=== PATIENT | female | born 1935 | race Caucasian/White ===

== ENCOUNTER 2017-08-08 10:44 | Emergency (ER) | payer MEDICARE, OTHER ==
[~2017-08-08] VITALS: Ht 162.6 cm; Wt 81.6 kg
[~2017-08-08 10:44] MED LIST: ALLOPURINOL100 MG PO; ASPIRIN EC81 MG PO; ATORVASTATIN CA10 MG PO; BIOTIN PO; BYSTOLIC PO; CARVEDILOL12.5 MG PO; CLONIDINE HCL0.3 MG TD; DIOVAN160 MG PO; GLIMEPIRIDE2 MG PO; ISOSORBIDE DINI30 MG PO; KLOR-CON 88 MEQ PO; LASIX20 MG PO; NIFEDICAL XL PO; PANTOPRAZOLE PO; PANTOPRAZOLE SO40 MG PO; TRIAMTERENE-HCTZ1 EA PO; VITAMIN D3 PO
[2017-08-08] MEDS ORDERED: JANUVIA100 MG PO (11:18)
[2017-08-08] MEDS ORDERED: GLIMEPIRIDE2 MG PO (11:18)
[2017-08-08] MEDS ORDERED: COREG12.5 MG (11:18)
[2017-08-08] MEDS ORDERED: LASIX40 MG PO (11:18)
[2017-08-08] MEDS ORDERED: SPIRONOLACTONE25 MG PO (11:18)
[2017-08-08] MEDS ORDERED: ROBAXIN-750750 MG PO (12:30)
[2017-08-08 12:59] VITALS: BP 150/67
== END 2017-08-08 12:40 | disposition home or self-care (01) ==
LOC: FSED 10:44
DX: R07.89 Other chest pain (principal); M54.2 Cervicalgia; S16.1XXA Strain of muscle, fascia and tendon at neck level, initial encounter; M25.512 Pain in left shoulder; I10 Essential (primary) hypertension; E11.9 Type 2 diabetes mellitus without complications
CPT/HCPCS: 71046; 80048; 82553; 84484; 85025; 93005; 99283

== ENCOUNTER 2017-10-18 12:11 | Emergency (ER) | payer MEDICARE, OTHER ==
[~2017-10-18] VITALS: Ht 162.6 cm; Wt 81.6 kg
[~2017-10-18 12:11] MED LIST changes: +COREG12.5 MG; +JANUVIA100 MG PO; +LASIX40 MG PO; +ROBAXIN-750750 MG PO; +SPIRONOLACTONE25 MG PO
--- OUTSIDE RECORDS SUMMARY | 2017-10-18 12:15 | XMS REPORT | Continuity of Care Document ---
Author Author [facility] Organization [facility] Address [address] [place] [address] Phone Unavailable Care Team Providers Care Truck Terminal Manager Name Role Phone NONSTAFF PCP Unavailable Insurance Providers Guarantor Kim Young Address [address] [place] [address] Email [email or web address] Payer Medicare A & B Policy Number [id number] Subscriber's Name Fatou Youngfer Gonzalez Relationship 18 Self / Same As Patient Group Number [id number] Group Name RETIRED Effective Date 00 Payer Miscellaneous Indemnity Policy Number [id number] Subscriber's Name Kim Young Lisa Relationship 18 Self / Same As Patient Group Number [id number] Group Name RETIRED Effective Date 00 Advance Directives Directive Response Recorded Date/Time Does the patient have an advance directive? Yes 11/29/09 6:43am If yes, is advance directive on file with [facility]? No 11/29/09 6:43am If not on file with [facility] will patient provide a copy? Yes 01/02/16 10:00pm Do you have a Directive to Physician? No 08/08/17 11:49am Do you have a Medical Power of Surgical Resident? No 08/08/17 11:49am Do you have an out of hospital Do Not Resuscitate Order? No 08/08/17 11:50am Do you have any special needs we should be aware of? No 08/08/17 11:50am Do you have a support person here with you today? Yes 08/08/17 11:50am Did patient receive Notice of Privacy Practices? Yes 08/08/17 11:50am Did patient receive patient rights and responsibilities? Yes 08/08/17 11:50am Problems No problem information available. Medications Current Home Medications Medication Dose Units Route Directions Days Qty Instructions Start Date Allopurinol 100 Mg Tablet 100 Mg Oral Twice A Day 30 Tab Aspirin (Aspirin Ec) 81 Mg Tablet.dr 81 Mg Oral Daily 30 Tab Atorvastatin Calcium 10 Mg Tablet 10 Mg Oral Today At 9:00PM 30 Tab Carvedilol (Coreg) 12.5 Mg Tab 25 Furosemide (Lasix) 40 Mg Tablet 40 Mg Oral Daily 30 Tab Glimepiride 2 Mg Tablet 4 Mg Oral Isosorbide Dinitrate 30 Mg Tablet 1 Tab Oral Romi Methocarbamol (Robaxin-750) 750 Mg Tablet 1-2 Tab Oral Three Times A Day as needed for Pain 30 Tab 08/08/17 Pantoprazole Sodium (Protonix) 40 Mg Tablet.dr 40 Mg Oral Daily Sitagliptin Phosphate (Januvia) 100 Mg Tablet 50 Mg Oral Daily 30 Tab Spironolactone 25 Mg Tablet 25 Mg Oral Twice A Day 60 Tab Valsartan (Diovan) 160 Mg Tab 160 Mg Oral Twice A Day 60 Tab Past Home Medications Medication Directions Ordered Status Biotin , 5000 Oral Daily Discontinued Bystolic , 20 Mg Oral Daily Discontinued Carvedilol 12.5 Mg Tablet, 25 Mg Oral Twice A Day Discontinued Clonidine Hcl 0.3 Mg Tablet, 0.3 Mg Transderm Weekly Discontinued Furosemide (Lasix) 20 Mg Tablet, 20 Mg Oral Daily Discontinued Glimepiride 2 Mg Tablet, 2 Mg Oral Use As Directed Discontinued Nifedical Xl , 60 Mg Oral Daily Discontinued Pantoprazole , 40 Mg Oral Daily Discontinued Potassium Chloride (Klor-Con 8) 8 Meq Tablet.er, 1 Tab Oral Daily Discontinued Triamterene/Hctz (Triamterene-Hctz 37.5-25 Mg Tb) 1 Ea Tab, 1 Each Oral Daily Discontinued Vitamin D3 , Oral Daily Discontinued Social History Smoking Status Start Date Stop Date Never Smoker Hospital Discharge Instructions No hospital discharge instruction information available. Plan of Care Discharge Date 08/08/17 12:40pm Disposition HOME, SELF-CARE Condition at Discharge Stable Instructions/Education Provided Strains Chest Pain - Chest Wall Cervical Strain Prescriptions See Medication Section Additional Instructions/Education You may also use your home Tramadol you take as needed for pain for this pain as well. Functional Status No functional status information available. Allergies, Adverse Reactions, Alerts Allergen Type Severity Reaction Status Last Updated Penicillin Allergy Mild Active 01/02/16 Iodine Allergy Mild Active 01/02/16 Hydrocodone Allergy Mild Active 01/02/16 Acetaminophen Allergy Mild Active 01/02/16 Levofloxacin Allergy Mild Active 01/02/16 Immunizations No immunization information available. Vital Signs Acute Vital Signs Vital Response Date/Time Pulse Pulse Rate (adult) 60 bpm (60 - 90) 08/08/2017 12:59pm Respiratory Rate 16 bpm (12 - 24) 08/08/2017 12:59pm Blood Pressure 150/67 mm Hg 08/08/2017 12:59pm Height 5 ft 4 in 08/08/2017 10:45am Weight 180 lb 08/08/2017 10:45am Body Mass Index 30.9 kg/m^2 08/08/2017 10:45am Results No relevant diagnostic test, laboratory data and/or discharge summary information available. Procedures No procedure information available. Encounters Encounter Location Arrival/Admit Date Discharge/Depart Date Attending Provider Departed Emergency Room [facility] 08/08/17 10:44am 08/08 12:40pm TONY FABIAN MD
--- OUTSIDE RECORDS SUMMARY | 2017-10-18 12:15 | XMS REPORT | Clinical Summary ---
Author Author [facility] Organization [facility] Address Unknown Phone Unavailable Care Team Providers Care Tie Knitter Helper Name Role Phone Tunde Perkins MD PCP Allergies Active Allergy Reactions Severity Noted Date Comments Hydrocodone-Acetaminophen 08/17/2015 Other reaction(s): Vicodin Iodine Other (See Comments) 08/17/2015 Levofloxacin Other (See Comments) 08/17/2015 Levaquin Penicillins 08/17/2015 Other reaction(s): Penicillins Prednisone Other (See Comments) 09/18/2016 High blood pressure Current Medications Prescription Sig. Disp. Refills Start End Date Status Date carvedilol (COREG) 25 MG 2 06/23/20 Active tablet 15 allopurinol (ZYLOPRIM) 08/30/19 Active 100 MG tablet 16 valsartan (DIOVAN) 160 MG 08/30/19 Active tablet 16 isosorbide mononitrate TK 1 T PO D 3 09/02/19 Active (IMDUR) 30 MG 24 hr 16 tablet pantoprazole (PROTONIX) 08/24/19 Active 40 MG EC tablet 16 KLOR-CON 8 8 mEq CR 08/30/19 Active tablet 16 aspirin (ECOTRIN) 81 MG Take 81 mg by mouth Active enteric coated tablet daily. lancets 30 gauge misc For ADVOCATE GLUCOMETER 180 each 10 05/03/20 Active device BID testing 16 pen needle, diabetic (BD Use once daily 100 each 10 09/19/19 Active ULTRA-FINE FABY PEN 17 NEEDLES) 32 gauge x 5/32" needle LANTUS SOLOSTAR 100 Inject subcutaneously 10 15 mL 1 11/30/19 Active unit/mL injection (pen) units nightly 17 atorvastatin (LIPITOR) 10 Take 1 tablet by mouth 90 tablet 1 12/05/19 Active MG tablet every day 17 glimepiride (AMARYL) 4 MG Take 1 tablet by mouth 180 tablet 1 Active tablet two times daily 17 furosemide (LASIX) 40 MG 3 07/27/19 02/08/20 Discontin tablet 16 17 ued glimepiride (AMARYL) 4 MG Take 1 tablet (4 mg 180 tablet 3 01/10/20 12/03/19 Discontin tablet total) by mouth 2 (two) 16 17 ued times a day. blood sugar diagnostic ADVOCATE test strips, for 180 strip 10 05/02/20 strips (glucose blood) BID testing 16 17 strip test strips atorvastatin (LIPITOR) 10 Take 1 tablet by mouth 90 tablet 1 06/12/20 12/03/19 Discontin MG tablet every day 16 17 ued insulin GLARGINE (LANTUS Inject 10 Units under the 5 pen 1 09/19/19 11/30/19 Discontin SOLOSTAR) 100 unit/mL skin nightly. 17 17 ued injection (pen) TRULICITY 0.75 mg/0.5 mL Inject subcutaneously 6 mL 1 11/30/1902/07 Discontin pen injector 0.75 mg once a week. 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, unspecified senior care insulin use status (Primary Dx) 12/02/2016 Refill Endocrinology Fatuma Cosby MD 12/01/2016 Clinical Internal Medicine Uncontrolled type 2 Support diabetes mellitus with diabetic nephropathy, 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 insulin use status (Primary Dx) 12/01/2016 Telephone Endocrinology Eva Henning LVN 11/29/2016 Refill Endocrinology Fatuma Cosby MD 11/13/2016 Clinical Internal Medicine Uncontrolled type 2 Support diabetes mellitus with hyperosmolar coma, without long-term current use of insulin (Primary Dx) 11/10/2016 Telephone Endocrinology Eva Henning LVN after 10/17/2016 Family History Medical History Relation Name Comments Diabetes Maternal Grandmother Heart disease Maternal Grandmother GI problems Mother Relation Name Status Comments Maternal Grandmother Mother Social History Tobacco Use Types Packs/Day Years Used Date Never Smoker Smokeless Tobacco: Never Used Tobacco Cessation: Counseling Given: No Sex Assigned at Date Recorded Not on file Last Filed Vital Signs Vital Sign Reading Time Taken Blood Pressure 150/76 02/07/2017 9:57 AM CDT Pulse 73 02/07/2017 9:57 AM CDT Temperature 36.5 C (97.7 F) 02/07/2017 9:57 AM CDT Respiratory Rate - - Oxygen Saturation 96% 02/07/2017 9:57 AM CDT Inhaled Oxygen - - Concentration Weight 79.8 kg (176 lb) 02/07/2017 9:57 AM CDT Height 165.1 cm (5' 5") 02/07/2017 9:57 AM CDT Body Mass Index 29.29 02/07/2017 9:57 AM CDT Plan of Treatment Health Maintenance Due Date Last Done Comments FOOT EXAM 1945 OPHTHALMOLOGY EXAM 1945 ZOSTER VACCINE 1995 PNEUMOCOCCAL 2000 POLYSACCHARIDE VACCINE AGE 65 AND OVER PNEUMOCOCCAL-13 2000 URINE MICROALBUMIN 03/16/2017 03/16/2016 INFLUENZA VACCINE 01/30/2018 Results * POC glycosylated hemoglobin (Hb A1C) (12/01/2016 2:56 PM) Only the most recent of 2 results within the time period is included. Component Value Ref Range POC Hemoglobin A1C 6.9 % Specimen Performing Laboratory Blood after 10/17/2016 Insurance Payer Benefit Subscriber ID Type Phone Address Plan / Group MEDICARE MEDICARE xxxxxxxxxx Medicare [place], [place] PART A AND B COMMERCIAL MISC MISC xxxxxxxxx Commercial COMMERCIAL
[2017-10-18 13:45] VITALS: BP 136/78
== END 2017-10-18 13:35 | disposition home or self-care (01) ==
LOC: FSED 12:11
DX: H92.02 Otalgia, left ear (principal); M26.622 Arthralgia of left temporomandibular joint; I10 Essential (primary) hypertension; E11.9 Type 2 diabetes mellitus without complications
CPT/HCPCS: 99282

== ENCOUNTER 2020-05-09 16:10 | Observation (INO) | payer MEDICARE, OTHER ==
[~2020-05-09] VITALS: Ht 162.6 cm; Wt 86.2 kg
--- OUTSIDE RECORDS SUMMARY | 2020-05-09 17:00 | XMS REPORT | Clinical Summary ---
Author Author [facility] Organization [facility] Address Unknown Phone Unavailable Care Team Providers Care Executive Kitchen Manager Name Role Phone Belén Perkins MD PCP Allergies Comments Active Allergy Reactions Severity Noted Date Other reaction(s): Vicodin Hydrocodone-Acetaminophen 08/17/2015 Iodine Other (See 08/17/2015 Comments) Levaquin Levofloxacin Other (See 08/17/2015 Comments) Other reaction(s): Penicillins Penicillins 08/17/2015 High blood pressure Prednisone Other (See 09/18/2016 Comments) Medications End Date Status Medication Sig Dispensed Refills Start Date Active carvedilol (COREG) 25 MG 2 tablet 5 Active allopurinol (ZYLOPRIM) 0 100 MG tablet 6 Active valsartan (DIOVAN) 160 MG 0 tablet 6 Active isosorbide mononitrate TK 1 T PO D 3 01 (IMDUR) 30 MG 24 hr 6 tablet Active pantoprazole (PROTONIX) 0 40 MG EC tablet 6 Active KLOR-CON 8 8 mEq CR 0 tablet 6 Active aspirin (ECOTRIN) 81 MG Take 81 mg by 0 enteric coated tablet mouth daily. Active lancets 30 gauge misc For ADVOCATE 180 each 10 GLUCOMETER 6 device BID testing Active pen needle, diabetic (BD Use once 100 each 10 0 ULTRA-FINE FABY PEN daily 7 NEEDLES) 32 gauge x 5/32" needle Active LANTUS SOLOSTAR 100 Inject 15 mL 1 unit/mL injection (pen) subcutaneousl 7 y 10 units nightly Active atorvastatin (LIPITOR) 10 Take 1 tablet 90 tablet 1 MG tablet by mouth 7 every day Active glimepiride (AMARYL) 4 MG Take 1 tablet 180 tablet 1 tablet by mouth two 7 times daily Active Problems Problem Noted Date Uncontrolled type 2 diabetes mellitus 08/17/2015 Surgical History Surgery Date Site/Laterality Comments EYE SURGERY 12/30/2013 - Cataract Surgery 01/29/2014 KNEE SURGERY 03/02/2011 - 03/31/2011 ORTHOPEDIC SURGERY 08/2010 and 09/2009 BACK SURGERY Dates: 11/2004, 09/1990, 09/1986 ORTHOPEDIC SURGERY 08/02/2000 - 08/29/2000 HERNIA REPAIR 08/30/1996 - 09/29/1996 HYSTERECTOMY 11/30/1974 - 12/29/1974 BREAST SURGERY 09/30/1974 - 10/29/1974 COLONOSCOPY Medical History Medical History Date Comments Allergic Arthritis Diabetes mellitus (HCC) Fibromyalgia Heart murmur Liver disease Kidney disease Pulmonary embolism (HCC) Kumar's palsy Hypertension Family History Medical History Relation Name Comments Diabetes Maternal Grandmother Heart disease Maternal Grandmother GI problems Mother Relation Name Status Comments Maternal Grandmother Mother Social History Date Tobacco Use Types Packs/Day Years Used Never Smoker Smokeless Tobacco: Never Used Tobacco Cessation: Counseling Given: No Sex Assigned at Date Recorded Not on file Last Filed Vital Signs Not on file Plan of Treatment Health Maintenance Due Date Last Done Comments SHINGLES VACCINES (#1) 1985 65+ PNEUMOCOCCAL VACCINE 2000 (1 of 1 - PPSV23) INFLUENZA VACCINE 01/31/2020 Results Not on fileafter 05/09/2019 Insurance Type Payer Benefit Subscriber ID Effective Phone Address Plan / Dates Group Medicare MEDICARE MEDICARE [id number] 2000- [place], PART A AND Present [place] B Commercial COMMERCIAL [facility] [id number] 2000- COMMERCIAL Present Advance Directives For more information, please contact: [phone] 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
--- OUTSIDE RECORDS SUMMARY | 2020-05-09 17:01 | XMS REPORT | Continuity of Care Document ---
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 Design Engineer Name Role Phone [facility] Unavailable Un available Problems Problem Status Onset Date Classification Date Reported Comments Source F/U Active 0 11/06/2019 [facility] FOLLOW UP Active 05/14/2019 [facility] BDNV GERD Active 03/25/2019 [facility] GI F/U APPT Active 03/19/2019 [facility] ESOPHAGEAL DYSMOTILITY, BRONCHIEC Active 02/24/2019 [facility] K21.9 - GASTRO-ESOPHAGEAL REFLUX DISEA Active 02/04/2019 [facility] Ardon R05 - COUGH Active 01/08/2019 [facility] Reeves NEW PT CONSULT - GERD Active 12/17/2018 [facility] Strain of muscle and tendon of front wal l of thorax, initial encounter 03/08/2017 03/11/2017 [facility] CHEST PAIN, HIGH BP, PAIN UNDER SHOULDER Active 03/08/2017 [facility]-Z00.00 ENCOUNTER FOR GENERAL ADULT Active 02/28/2016 [facility] R10.11 - RIGHT UPPER QUADRANT PAIN Active [facility] RUQ PAIN - DR HASKINS PT FROM 2008 Active 01/28/2016 [facility] M79.89 - OTHER SPECIFIED SOFT TISSUE DI Active 12/17/2015 [facility] Joea CHEST PAIN Active 07/26/2015 [facility] CHEST PAIN/HYPERTENSION/HEADACHE Active 07/26/2015 [facility] L FOOT SWELLING CELLULITIS Act alisha 10/06/2014 [facility] 783.21 - ABNORMAL LOSS O Active 11/18/2013 [facility] MILLAN - HEARTBURN; DIARRHEA; CHRONIC DIAR Active 11/17/2013 [facility] - COLONOSCOPY EGD W/ BX Active 11/17/2013 [facility] UTERINE CANCER? Active 10/29/2013 [facility] REFLUX Active 10/09/2013 [facility] OTHER Active 05/13/2013 [facility] DYSPNEA Active 02/15/2012 [facility] SOB 6 [facility]INT[facility] WALK TEST Active 01/19/2012 [facility] STROKE SYMPTOMS Active 08/19/2011 [facility] Cystocele Active 05/21/2013 [facility] Hypertensive disorder, systemic arterial (disorder) Active Problem 03/13/2020 [facility], CASSANDRA Reeves, OP[facility], [facility] Gastroesophageal reflux disease (disorder) Active Problem 03/13/2020 [facility], CASSANDRA Reeves, [facility] Anxiety (finding) Resolved Problem 03/13/2020 [facility], O RIGO Reeves, [facility] Arthritis (disorder) Resolved Problem 03/13/2020 [facility], O RIGO Reeves, [facility] Kumar's palsy (disorder) Resolv ed Problem 06/2020 [facility], O RIGO Reeves, [facility] Cellulitis (disorder) Resolved Problem 03/13/2020 [facility], O RIGO Reeves, [facility] Chronic kidney disease stage 4 (disorder) Active Problem 03/13/2020 [facility], CASSANDRA Reeves, [facility] Diabetes mellitus (disorder) A ctive Problem 06/2020 [facility], O RIGO Reeves, [facility] Diabetes mellitus type 2 (disorder) Resolved Problem 06/2020 [facility], O RIGO Reeves, [facility] Family history of malignant neoplasm of gastrointestinal tract (situation) Active Problem 03/13/2020 [facility], CASSANDRA Reeves, [facility] Steatosis of liver (disorder) Active Problem 06/2020 [facility], O RIGO Reeves, [facility] Gout (disorder) Resolved Problem 03/13/2020 [facility], O RIGO Reeves, [facility] Hyperlipidemia (disorder) Acti ve Problem 06/2020 [facility], O RIGO Reeves, CASSANDRA Ardon, [facility] Infectious disorder of kidney (disorder) Resolved Problem 03/13/2020 [facility], CASSANDRA Reeves, CASSANDRA Ardon, [facility] Obesity (disorder) Active Problem 03/13/2020 [facility], O RIGO Reeves, CASSANDRA Ardon, [facility] Right upper quadrant pain (finding) Active Problem 06/2020 [facility], Abril Reeves, CASSANDRA Ardon, EDNV Final: 10/11/2014 [facility] SHORTNESS OF BREATH Active [facility] RESPIRATORY ABNORM NEC Active [facility] ROUTINE MEDICAL EXAM Active [facility] DIARRHEA Active [facility] HEARTBURN Active [facility] CELLULITIS NOS Active [facility] ENCNTR FOR GENERAL ADULT MEDICAL EXAM W/ Active [facility] Medications Medication Details Route Status Patient Instructions Ordering Provider Order Date Source atorvastatin 10 mg oral tablet 10 mg = 1 tab, PO, Bedtime, # 30 tab, 0 Refill(s) Active 03/11/2020 [facility] pantoprazole 40 mg oral enteric coated tablet 40 mg = 1 tab, PO, BID, # 60 tab, 2 Refill(s), Pharmacy: [id number] Active 12/03/2019 [facility] repaglinide 2 mg oral tablet 2 mg = 1 tab, PO, TID- Before Meals, # 270 tab, 0 Refill(s) Active 05/08/2019 [facility] n[facility] 3 ML Insulin Glargine 100 UNT/ML Prefill ed Syringe [Lantus] 10 unit, SUB-Q, Daily, # 3 mL, 0 Refill(s) Active 05/08/2019 [facility] IRBESARTAN 75 mg oral tablet 0 Refill(s) Active 01/23/2019 [facility] irbesartan 150 mg oral tablet 150 mg = 1 tab, PO, Daily, # 30 tab, 0 Refill(s) Active 01/23/2019 [facility] repaglinide 1 mg oral tablet 1 mg = 1 tab, PO, TID- Before Meals, # 90 tab, 0 Refill(s) Active 12/12/2018 [facility] spironolactone 25 mg oral tablet 25 mg = 1 tab, PO, Daily, # 90 tab, 1 Refill(s) Active 12/12/2018 [facility] Vitamin B12 0 Refill(s) Active 12/12/2018 [facility] tramadol hydrochloride 50 MG Oral Tablet 50 mg = 1 tab, PO, Q8H, PRN Pain, # 60 tab, 0 Refill(s) Active 12/12/2018 [facility] sitagliptin 50 MG Oral Tablet [Januvia] 50 mg = 1 tab, PO, Daily, # 90 tab, 1 Refill(s) Active 12/12/2018 [facility] Metformin hydrochloride 500 MG Oral Tablet 500 mg = 1 tab, PO, BID-Meals, # 60 tab, 0 Refill(s) Active 12/12/2018 [facility] Diazepam 2 MG Oral Tablet [Valium] 2 mg = 1 tab, PO, Bedtime, PRN Pain Score 4-6, X 7 day, # 7 tab, 0 Refill(s) Active 03/08/2017 [facility] Coreg 25 mg, Route: PO, ONCE, Dosing Weight 79.545, kg, Start date: 03/08/17 7:08:00 CDT, Stop date: 03/08/17 7:08:00 CDT Inactive 03/08/2017 [facility] valsartan 160 mg, Route: PO, D rug form: TAB, ONCE, Dosing Weight 79.545, kg, Start date: 03/08/17 7:07:00 CDT, Stop date: 03/08/17 7:07:00 CDT, .. Inactive 03/08/2017 [facility] Nitroglycerin 0.02 MG/MG Topical Ointment 1 inch, Route: TOP, Drug Form: OINT, Dosing Weight 79.545, kg, ONCE, STAT, Start date: 03/08/17 6:05:00 CDT, Stop date: 03/08/17 6:05:00 CDT Inactive 03/08/2017 [facility] Acetaminophen 650 mg, Route: P O, Drug form: TAB, ONCE, Dosing Weight 79.545, kg, Priority: STAT, Start date: 03/08/17 6:05:00 CDT, Stop date: 03/08/17 6:05:00 CDT Inactive 03/08/2017 [facility] Aspirin 325 mg, Route: PO, Venu g form: TAB, ONCE, Dosing Weight 79.545, kg, Priority: STAT, Start date: 03/08/17 4:35:00 CDT, Stop date: 03/08/17 4:35:00 CDT Inactive 03/08/2017 [facility] Nitroglycerin 0.4 mg, Route: S L, ONCE, Dosing Weight 79.545, kg, Priority: STAT, Start date: 03/08/17 4:35:00 CDT, Stop date: 03/08/17 4:35:00 CDT Inactive 03/08/2017 [facility] GoLYTELY oral powder for reconstitution See Instructions, Take as directed by physician., # 1 ea, 0 Refill(s), Pharmacy: [id number] Active 02/28/2016 [facility] pantoprazole 40 mg oral enteric coated tablet 40 mg = 1 tab, PO, Daily, # 30 tab, 11 Refill(s), Pharmacy: [facility] [id number] Active 01/31/2016 [facility] Potassium Chloride 8 MEQ Extended Release Tablet 8 mEq = 1 tab, PO, TID, # 30 tab, 0 Refill(s) Active 01/31/2016 [facility] isosorbide dinitrate 30 mg oral tablet 30 mg = 1 tab, PO, QID, # 120 tab, 0 Refill(s) Active 01/31/2016 [facility] glimepiride 4 mg oral tablet 4 mg = 1 tab, PO, Breakfast, # 30 tab, 0 Refill(s) Active 01/31/2016 [facility] remove patch 1 patch, Route: T OP, Daily, Drug form: ERFILM, Start date: 07/27/15 21:00:00, Duration: 30 day, Stop date: 08/25/15 21:00:00 Inactive 07/28/2015 [facility] Clonidine Hydrochloride 0.1 MG Oral Tablet 0.1 mg = 1 tab, PO, TID, 0 Refill(s) Active 07/27/2015 [facility] Dextrose 50% Syringe 25 gm, 50 mL, Route: IVP, Drug Form: INJ, Dosing Weight 80.636, kg, PRN, PRN Blood Glucose Results, Start date: 07/27/15 16:30:00, Duration: 30 day, Stop date: 08/26/15 16:29:00 Inactive 07/27/2015 [facility] Insulin, Aspart, Human Notes: Roll in palms of hands gently; Do not shake vigorously. (Same as: NovoLOG) "single patient use only" WASTE: F/P - Black; E - Municipal Trash Bin Stable for 28 days at room temperature. Expires in days from Date Inactive 07/27/2015 [facility] Glucagon 1 mg, Route: IM, Drug form: PDR/INJ, PRN, Dosing Weight 80.636, kg, PRN Blood Glucose Results, Start date: 07/27/15 16:30:00, Duration: 30 day, Stop date: 08/26/15 16:29:00 Inactive 07/27/2015 [facility] atorvastatin 10 mg oral tablet 10 mg = 1 tab, PO, Bedtime Active 07/27/2015 [facility] allopurinol 100 mg oral tablet 100 mg = 1 tab, PO, BID Active 07/27/2015 [facility] valsartan 160 mg oral tablet 1 60 mg = 1 tab, PO, BID Active 07/27/2015 [facility] carvedilol 25 mg oral tablet 2 5 mg = 1 tab, PO, BID Active 07/27/2015 [facility] Vitamin D3 Notes: Same as: Vit ocampo D3 Inactive 07/27/2015 [facility] Aspirin Notes: Do not crush or chew. (Same As: Ecotrin) Inactive 07/27/2015 [facility] Lasix Notes: (Same as: Lasix) May cause GI upset. Give with food or milk. Inactive 07/27/2015 [facility] potassium chloride Notes: ([facility] e as: K-Dur 10) "Do Not Crush" With food and full glass of water Inactive 07/27/2015 [facility] Lidocaine Hydrochloride 0.05 MG/MG Trans dermal Patch [Lidoderm] Notes: (Same as: Lidoderm) Inactive 07/27/2015 [facility] Protonix Notes: Tablet should not be chewed or crushed. (Same as: Protonix) Inactive 07/27/2015 [facility] heparin sodium, porcine 2500 UNT/ML Injectable Solutio n Notes: porcine heparin Inactiv e 07/27/2015 [facility] atorvastatin Notes: (Same As: Lipitor) No Longer Active 07/27/2015 [facility] carvedilol Notes: Give with fo od. (Same As: Coreg) No Longer Active 07/27/2015 [facility] potassium chloride Notes: (Alex e as: K-Dur 20) "Do Not Crush" With food and full glass of water Inactive 07/27/2015 [facility] valsartan Notes: Same as Diovan No Longer Active 07/26/2015 [facility] Glyburide Notes: (Same as: Evan ronporfirio Diabeta) Take with meals. No Longer Active 07/26/2015 [facility] Magnesium Sulfate Notes: WASTE : F/P - Sink; E - Municipal Trash Bin Inactive 07/26/2015 [facility] Allopurinol Notes: (Same as: Z yloprim) No Longer Active 07/26/2015 [facility] Clonidine Hydrochloride 0.1 MG Oral Tablet Notes: (Same As: Catapres) No Longer Active 07/26/2015 [facility] Furosemide Notes: (Same as: La six) May cause GI upset. Give with food or milk. Inactive 07/26/2015 [facility] Magnesium Sulfate Notes: (Same as: MgSO4) WASTE: F/P - Sink; E - Municipal Trash Bin MEDICATION WASTE Product Size: 1000 mg Product Wasted: ___ mg Inactive 07/26/2015 [facility] Aspirin Notes: Take with food. Inactive 07/26/2015 [facility] clindamycin 300 mg oral capsule 300 mg = 1 cap, PO, Q6H, # 20 cap, 0 Refill(s) Active 10/09/2014 [facility] Colchicine 0.6 MG Oral Tablet 0.6 mg, PO, Daily, # 6 tab, 0 Refill(s) Active 10/09/2014 [facility] Doxycycline 100 MG Oral Capsule 100 mg = 1 tab, PO, [id number], # 14 tab, 0 Refill(s) Active 10/09/2014 [facility] Doxycycline 100 MG Oral Capsule Notes: NO MILK/ANTACIDS/IRON Take 1 hour before or 2 hours after dairy products No Longer Active 10/09/2014 [facility] Colchicine 0.6 mg, 1 tab, Rout e: PO, Drug form: TAB, ONCE, Dosing Weight 80, kg, Start date: 10/08/14 19:15:00, Stop date: 10/08/14 19:15:00 Inactive 10/09/2014 [facility] Colchicine 1.2 mg, 2 tab, Rout e: PO, Drug form: TAB, ONCE, Dosing Weight 80, kg, Start date: 10/08/14 18:15:00, Stop date: 10/08/14 18:15:00 Inactive 10/08/2014 [facility] Docusate Notes: (Same as: Cola ce) No Longer Active 10/07/2014 [facility] Potassium Chloride 20 MEQ Extended Release Tablet Notes: (Same as: K-Dur 20) With food and full glass of water No Longer Active 10/07/2014 [facility] pantoprazole Notes: (Same as: Protonix) No Longer Active 10/07/2014 [facility] Nifedical XL Notes: (Same as: Adalat CC, Procardia XL) Give on empty stomach. Take 1 hour before or 2 hours after meal; "Avoid grapefruit and grapefruit juice". Do not crush No Longer Active 10/07/2014 [facility] Bystolic Notes: (same as: Byst olic) No Longer Active 10/07/2014 [facility] Hydrochlorothiazide 25 MG / Triamterene 37.5 MG Oral Tablet Notes: (triamterene-hydrochlorothiazide 37.5-25 mg TAB) (Same As: Maxzide- 25) No Longer Active 10/07/2014 [facility] Aspirin Notes: Do not crush or chew. (Same As: Ecotrin) No Longer Active 10/07/2014 [facility] Miralax Notes: Dissolve in 8 o z of water or juice. (Same as: Miralax) No Longer Active 10/07/2014 [facility] Magnesium Sulfate 2 gm, 50 mL, Route: IVPB, Drug form: INJ, Q2H, Dosing Weight 80, kg, Total dose = 4 gm, Start date: 10/07/14 4:00:00, Duration: 2 doses or times, Stop date: 10/07/14 6:00:00 Inactive 10/07/2014 [facility] 168 HR Clonidine 0.0125 MG/HR Transdermal Patch Notes: Patch delivers 0.3 mg/24 hours; Patch is applied weekly. [id number]. No Longer Active 10/07/2014 [facility] tramadol hydrochloride 50 MG Oral Tablet Notes: . (Same As: Ultram) No Longer Active 10/07/2014 [facility] Hydrochlorothiazide 25 MG / Triamterene 37.5 MG Oral Tablet 1 tab, PO, Daily, # 30 tab, 0 Refill(s) Active 10/07/2014 [facility] 168 HR Clonidine 0.0125 MG/HR Transdermal Patch 1 patch, TOP, Q7D, # 12 patch, 0 Refill(s) Active 10/07/2014 [facility] NS 1,000 mL 1,000 mL, Rate: 75 ml/hr, Infuse over: 13.3 hr, Route: IV, Dosing Weight 80 kg, Total Volume: 1,000, Start date: 10/07/14 1:03:00, Duration: 30 day, Stop date: 11/06/14 1:02:00 No Longer Active 10/07/2014 [facility] potassium chloride Notes: ([facility] e as: KCL) Infuse no faster than 10 mEq/hr if given peripherally. Inactive 10/07/2014 [facility] potassium chloride Notes: (Alex e as: K-Dur 20) "Do Not Crush" With food and full glass of water Inactive 10/07/2014 [facility] Clindamycin Notes: (clindamyci n 150 mg/1 ml (600 mg/4 ml VL) INJ) (Same As: Cleocin) No Longer Active 10/07/2014 [facility] heparin Notes: porcine heparin No Longer Active 10/07/2014 [facility] Insulin, Aspart, Human Notes: Roll in palms of hands gently; Do not shake vigorously. (Same as: NovoLOG) "single patient use only" Stable for 28 days at room temperature. Expires in days from Date No Longer Active 10/07/2014 [facility] Glucagon 1 mg, Route: IM, Drug form: PDR/INJ, PRN, Dosing Weight 80, kg, PRN Blood Glucose Results, Start date: 10/06/14 22:25:00, Duration: 30 day, Stop date: 11/05/14 22:24:00 No Longer Active 10/07/2014 [facility] Dextrose 50% Syringe 25 gm, 50 mL, Route: IVP, Drug Form: INJ, Dosing Weight 80, kg, PRN, PRN Blood Glucose Results, Start date: 10/06/14 22:25:00, Duration: 30 day, Stop date: 11/05/14 22:24:00 No Longer Active 10/07/2014 [facility] Ondansetron Notes: (Same as: iMke stafford) MEDICATION WASTE Product Size: 4 mg Product Wasted: ___ mg No Longer Active 10/07/2014 [facility] Acetaminophen 325 MG / Hydrocodone Janet trate 5 MG Oral Tablet Notes: (Same as: [place] 325/5) Do not ex ceed 4gm/day of acetaminophen. No Longer Active 10/07/2014 [facility] Acetaminophen Notes: Do not ex ceed 4 gm/day. (Same as: Tylenol) No Longer Active 10/07/2014 [facility] 24 HR Nifedipine 60 MG Extended Release Tablet [Nifedical] 60 mg = 1 tab, PO, Daily, 0 Refill(s) Active 10/07/2014 [facility] glyBURIDE 2.5 mg oral tablet 2 .5 mg = 1 tab, PO, BID, 0 Refill(s) Active 10/07/2014 [facility] Potassium Chloride 20 MEQ Extended Release Tablet 20 mEq = 1 tab, PO, Daily, 0 Refill(s) Active 10/07/2014 [facility] Furosemide 40 MG Oral Tablet 4 0 mg = 1 tab, PO, Daily, 0 Refill(s) Active 10/07/2014 [facility] POLYETHYLENE GLYCOL 3350 60 MG/ML / Pota ssium Chloride 0.01 MEQ/ML / Sodium Bicarbonate 0.02 MEQ/ML / Sodium Chloride 0.025 MEQ/ML / sodium sulfate 0.04 MEQ/ML Oral Solution [Golytely] 240 ml, PO, Q10Min, # 1 ea, 0 Refill(s), Pharmacy: [facility] [id number] Active 11/17/2013 [facility] Vitamin D3 0 Refill(s) Active 11/17/2013 [facility] losartan 100 mg oral tablet 0 Refill(s) Active 11/17/2013 [facility] Biotin 0 Refill(s) Active 11/17/2013 [facility] pantoprazole 40 mg oral enteric coated tablet 0 Refill(s) Active 11/17/2013 [facility] Aspirin Low Dose 81 mg oral tablet 0 Refill(s) Active 11/17/2013 [facility] Clonidine Hydrochloride 0.3 MG Oral Tablet 0 Refill(s) Active 11/17/2013 [facility] Triamterene 0 Refill(s) Active 11/17/2013 [facility] nebivolol 20 MG Oral Tablet [Bystolic] 0 Refill(s) Active 11/17/2013 [facility] Estrace 0.1 MG/GM Vaginal Cream ; Start Date: 05/21/2013 (Active) Active 05/21/2013 [facility] Murine Tears Plus ophthalmic drops 1 drp, LEFT EYE, TID, 1 btl, Substitute Allowed LEFT EYE Active [facility] 08/20/2011 [facility] predniSONE 50 mg oral tablet 5 0 mg, 1 tab, PO, Daily, 5 tab, Substitution Allowed, TAB PO Active [facility] 08/20/2011 [facility] acyclovir 400 mg oral tablet 4 00 mg, 1 tab, PO, 5X Day, 35 tab, Substitution Allowed, TAB PO Active [facility] 08/20/2011 [facility] proparacaine ophthalmic 0.5% solution 1 drp, Route: BOTH EYES, ONCE, Drug form: SOLN, Priority: STAT, Start date: 08/19/11 22:24:00, Stop date: 08/19/11 22:24:00 BOTH EYES No Longer Active [facility] 08/20/2011 [facility] fluorescein ophthalmic 1 mg test 1 strip, Route: BOTH EYES, ONCE, Drug form: STRIP, Start date: 08/19/11 22:23:00, Stop date: 08/19/11 22:23:00 BOTH EYES No Longer Active [facility] 08/20/2011 [facility] Bystolic 5 MG Oral Tablet (Ac tive) Active [facility] Triamterene-HCTZ 37.5-25 MG Oral Tablet (Active) Active [facility] CloNIDine HCl 0.3 MG Oral Tablet (Active) Active [facility] Losartan Potassium 100 MG Oral Tablet (Active) Active [facility] Aspirin 81 MG Oral Tablet (Ac tive) Active [facility] Multivital Oral Tablet (Activ e) Active [facility] Biotin 5000 CAPS (Active) Active [facility] Pantoprazole Sodium 40 MG Oral Tablet Delayed Release (Active) Active [facility] Allergies, Adverse Reactions, Alerts Substance Category Reaction Severity Reaction type Status Date Reported Comments Source penicillin Assertion Itching Propensity to adverse reacti ons to substance Active 07/05/2001 [facility] Penicillins drug allergy drug allergy Active [facility] Levaquin TABS drug allergy drug allergy Active [facility] Iodine SOLN drug allergy drug allergy Active [facility] Vicodin TABS drug allergy drug allergy Active [facility] Levaquin Assertion reaction to sun Drug allergy Active [facility] iodine Assertion Drug allergy Active [facility] Vicodin Assertion Drug allergy Active [facility] predniSONE Assertion Drug allergy Active [facility] Immunizations No Data Provided for This Section Results Order Name Results Value Reference Range Date Interpretation Comments Source CARDIAC ENZYMES Troponin-I <0.02 0.00 - 0.40 03/08/2017 [facility] ELECTROLYTES AGAP 11.2 10.0 - 20.0 03/08/2017 [facility] ELECTROLYTES BUN 17 7 - 22 03/08/2017 [facility] ELECTROLYTES Creatinine Lvl 1.0 1 0.50 - 1.40 03/08/2017 [facility] ELECTROLYTES Sodium Lvl 145 135 - 145 03/08/2017 [facility] ELECTROLYTES Potassium Lvl 4.2 3.5 - 5.1 03/08/2017 [facility] ELECTROLYTES Calcium Lvl 9.3 8.5 - 10.5 03/08/2017 [facility] ELECTROLYTES Chloride Lvl 109 95 - 109 03/08/2017 [facility] ELECTROLYTES CO2 29 24 - 32 03/08/2017 [facility] ELECTROLYTES Glucose Lvl 121 70 - 99 03/08/2017 [facility] ELECTROLYTES eGFR 52 03/08/2017 Result Comment: The eGFR is calculated using the CKD-EPI formula. In most young, healthy individuals the eGFR will be >90 mL/min/1.73m2. The eGFR declines with age. An eGFR of 60-89 may be normal in some populations, particularly the elderly, for whom the CKD-EPI formula has not been extensively validated. Use of the eGFR is not recommended in the following populations:

Individuals with unstable creatinine concentrations, including patients and those with serious co-morbid conditions.

Patients with extremes in muscle mass or diet.

The data above are obtained from the National Kidney Disease Education Program (NKDEP) which additionally recommends that when the eGFR is used in patients with extremes of body mass index for purposes of drug dosing, the eGFR should be multiplied by the estimated BMI. [facility] HEMATOLOGY Segs 66.7 45.0 - 75.0 03/08/2017 [facility] HEMATOLOGY Lymphocytes 19.8 20.0 - 40.0 03/08/2017 [facility] HEMATOLOGY Monocytes 8.8 2.0 - 12.0 03/08/2017 [facility] HEMATOLOGY Monocytes # 0.7 0.0 - 0.8 03/08/2017 [facility] HEMATOLOGY Basophils 0.5 0.0 - 1.0 03/08/2017 [facility] HEMATOLOGY Eosinophils 4.2 0.0 - 4.0 03/08/2017 [facility] HEMATOLOGY Segs-Bands # 5.0 1.5 - 8.1 03/08/2017 [facility] HEMATOLOGY Eosinophils # 0.3 0.0 - 0.5 03/08/2017 [facility] HEMATOLOGY Lymphocytes # 1.5 1.0 - 5.5 03/08/2017 [facility] HEMATOLOGY MCHC 31.5 32.0 - 36.0 03/08/2017 [facility] HEMATOLOGY MPV 8.1 7.4 - 10.4 03/08/2017 [facility] HEMATOLOGY Platelet 198 133 - 450 03/08/2017 [facility] HEMATOLOGY RDW 15.3 11.5 - 14.5 03/08/2017 [facility] HEMATOLOGY Hct 32.8 36.0 - 48.0 03/08/2017 [facility] HEMATOLOGY MCV 83.2 80.0 - 98.0 03/08/2017 [facility] HEMATOLOGY MCH 26.2 27.0 - 31.0 03/08/2017 [facility] HEMATOLOGY Hgb 10.3 12.0 - 16.0 03/08/2017 [facility] HEMATOLOGY RBC 3.95 4.20 - 5.40 03/08/2017 [facility] HEMATOLOGY WBC 7.6 3.7 - 10.4 03/08/2017 [facility] CHEM PANEL Magnesium Lvl 2.1 1.8 - 2.4 07/27/2015 [facility] CHEM PANEL Phosphorus 4.3 2.5 - 4.5 07/27/2015 [facility] CHEM PANEL BUN 26 7 - 22 07/27/2015 [facility] CHEM PANEL Glucose Lvl 150 70 - 99 07/27/2015 [facility] CHEM PANEL Chloride Lvl 107 95 - 109 07/27/2015 [facility] CHEM PANEL Potassium Lvl 4.1 3.5 - 5.1 07/27/2015 [facility] CHEM PANEL Calcium Lvl 8.6 8.5 - 10.5 07/27/2015 [facility] CHEM PANEL Creatinine Lvl 1.26 0.50 - 1.40 07/27/2015 [facility] CHEM PANEL Sodium Lvl 144 135 - 145 07/27/2015 [facility] CHEM PANEL CO2 30 24 - 32 07/27/2015 [facility] CHEM PANEL AGAP 11.1 10.0 - 20.0 07/27/2015 [facility] CHEM PANEL eGFR 40 07/27/2015 Result Comment: The eGFR is calculated using the CKD-EPI formula. In most young, healthy individuals the eGFR will be >90 mL/min/1.73m2. The eGFR declines with age. An eGFR of 60-89 may be normal in some populations, particularly the elderly, for whom the CKD-EPI formula has not been extensively validated. Use of the eGFR is not recommended in the following populations:

Individuals with unstable creatinine concentrations, including patients and those with serious co-morbid conditions.

Patients with extremes in muscle mass or diet.

The data above are obtained from the National Kidney Disease Education Program (NKDEP) which additionally recommends that when the eGFR is used in patients with extremes of body mass index for purposes of drug dosing, the eGFR should be multiplied by the estimated BMI. [facility] CARDIAC ENZYMES Troponin-T <0.010 0.000 - 0.100 07/27/2015 [facility] CARDIAC ENZYMES Troponin-I <0.02 0.00 - 0.40 07/27/2015 [facility] CARDIAC ENZYMES Total CK 109 12 - 191 07/27/2015 [facility] CARDIAC ENZYMES CK MB 1.7 0.5 - 3.6 07/27/2015 [facility] CARDIAC ENZYMES CK MB Index 1.6 0.0 - 2.5 07/27/2015 [facility] CHEM PANEL Magnesium Lvl 1.7 1.8 - 2.4 07/27/2015 [facility] CHEM PANEL eGFR 42 07/27/2015 Result Comment: The eGFR is calculated using the CKD-EPI formula. In most young, healthy individuals the eGFR will be >90 mL/min/1.73m2. The eGFR declines with age. An eGFR of 60-89 may be normal in some populations, particularly the elderly, for whom the CKD-EPI formula has not been extensively validated. Use of the eGFR is not recommended in the following populations:

Individuals with unstable creatinine concentrations, including patients and those with serious co-morbid conditions.

Patients with extremes in muscle mass or diet.

The data above are obtained from the National Kidney Disease Education Program (NKDEP) which additionally recommends that when the eGFR is used in patients with extremes of body mass index for purposes of drug dosing, the eGFR should be multiplied by the estimated BMI. [facility] CHEM PANEL Calcium Lvl 9.1 8.5 - 10.5 07/27/2015 [facility] CHEM PANEL AGAP 13.4 10.0 - 20.0 07/27/2015 [facility] CHEM PANEL CO2 27 24 - 32 07/27/2015 [facility] CHEM PANEL Chloride Lvl 108 95 - 109 07/27/2015 [facility] CHEM PANEL Potassium Lvl 3.4 3.5 - 5.1 07/27/2015 [facility] CHEM PANEL Sodium Lvl 145 135 - 145 07/27/2015 [facility] CHEM PANEL Creatinine Lvl 1.22 0.50 - 1.40 07/27/2015 [facility] CHEM PANEL Glucose Lvl 83 70 - 99 07/27/2015 [facility] CHEM PANEL BUN 22 7 - 22 07/27/2015 [facility] LIPIDS VLDL 31 07/27/2015 [facility] LIPIDS LDL (Calculated) 30 <=99 mg/dL 07/27/2015 [facility] LIPIDS Chol 123 <=199 mg/dL 07/27/2015 [facility] LIPIDS HDL 62 >=61 mg/dL 07/27/2015 [facility] LIPIDS CHD Risk 1.98 3.90 - 5.80 07/27/2015 [facility] LIPIDS Trig 155 <=149 mg/dL 07/27/2015 [facility] SPECIAL CHEMISTRY Hgb A1C 8.1 <=5.6 % 07/27/2015 [facility] CARDIAC ENZYMES Total CK 104 12 - 191 07/26/2015 [facility] CARDIAC ENZYMES Troponin-I <0.02 0.00 - 0.40 07/26/2015 [facility] CHEM PANEL Lipase Lvl 237 73 - 393 07/26/2015 [facility] CHEM PANEL Magnesium Lvl 1.6 1.8 - 2.4 07/26/2015 [facility] CHEM PANEL Phosphorus 3.7 2.5 - 4.5 07/26/2015 [facility] CHEM PANEL eGFR 37 07/26/2015 Result Comment: The eGFR is calculated using the CKD-EPI formula. In most young, healthy individuals the eGFR will be >90 mL/min/1.73m2. The eGFR declines with age. An eGFR of 60-89 may be normal in some populations, particularly the elderly, for whom the CKD-EPI formula has not been extensively validated. Use of the eGFR is not recommended in the following populations:

Individuals with unstable creatinine concentrations, including patients and those with serious co-morbid conditions.

Patients with extremes in muscle mass or diet.

The data above are obtained from the National Kidney Disease Education Program (NKDEP) which additionally recommends that when the eGFR is used in patients with extremes of body mass index for purposes of drug dosing, the eGFR should be multiplied by the estimated BMI. [facility] CHEM PANEL Chloride Lvl 105 95 - 109 07/26/2015 [facility] CHEM PANEL CO2 31 24 - 32 07/26/2015 [facility] CHEM PANEL Calcium Lvl 9.5 8.5 - 10.5 07/26/2015 [facility] CHEM PANEL BUN 23 7 - 22 07/26/2015 [facility] CHEM PANEL Glucose Lvl 206 70 - 99 07/26/2015 [facility] CHEM PANEL Potassium Lvl 4.4 3.5 - 5.1 07/26/2015 [facility] CHEM PANEL Creatinine Lvl 1.35 0.50 - 1.40 07/26/2015 [facility] CHEM PANEL Sodium Lvl 143 135 - 145 07/26/2015 [facility] CHEM PANEL Bili Total 0.5 0.2 - 1.3 07/26/2015 [facility] CHEM PANEL Albumin Lvl 3.7 3.5 - 5.0 07/26/2015 [facility] CHEM PANEL AST 19 0 - 37 07/26/2015 [facility] CHEM PANEL Alk Phos 113 39 - 136 07/26/2015 [facility] CHEM PANEL ALT 26 0 - 65 07/26/2015 [facility] CHEM PANEL Total Protein 7.3 6.4 - 8.4 07/26/2015 [facility] CHEM PANEL AGAP 11.4 10.0 - 20.0 07/26/2015 [facility] CHEM PANEL B/C Ratio 17 6 - 25 07/26/2015 [facility] CHEM PANEL Globulin 3.6 2.0 - 4.0 07/26/2015 [facility] CHEM PANEL A/G Ratio 1.0 0.7 - 1.6 07/26/2015 [facility] CHEM PANEL Lactic Acid Lvl 1.2 0.5 - 2.2 07/26/2015 [facility] HEMATOLOGY Lymphocytes 18.5 20.0 - 40.0 07/26/2015 [facility] HEMATOLOGY Monocytes 6.3 2.0 - 12.0 07/26/2015 [facility] HEMATOLOGY Eosinophils 3.6 0.0 - 4.0 07/26/2015 [facility] HEMATOLOGY Segs 71.1 45.0 - 75.0 07/26/2015 [facility] HEMATOLOGY Basophils 0.5 0.0 - 1.0 07/26/2015 [facility] HEMATOLOGY Segs-Bands # 5.4 1.5 - 8.1 07/26/2015 [facility] HEMATOLOGY Lymphocytes # 1.4 1.0 - 5.5 07/26/2015 [facility] HEMATOLOGY Monocytes # 0.5 0.0 - 0.8 07/26/2015 [facility] HEMATOLOGY Eosinophils # 0.3 0.0 - 0.5 07/26/2015 [facility] HEMATOLOGY MPV 8.5 7.4 - 10.4 07/26/2015 [facility] HEMATOLOGY Platelet 201 133 - 450 07/26/2015 [facility] HEMATOLOGY RDW 14.2 11.5 - 14.5 07/26/2015 [facility] HEMATOLOGY MCV 87.8 80.0 - 98.0 07/26/2015 [facility] HEMATOLOGY Hct 37.2 36.0 - 48.0 07/26/2015 [facility] HEMATOLOGY MCH 27.5 27.0 - 31.0 07/26/2015 [facility] HEMATOLOGY Hgb 11.7 12.0 - 16.0 07/26/2015 [facility] HEMATOLOGY MCHC 31.3 32.0 - 36.0 07/26/2015 [facility] HEMATOLOGY RBC 4.24 4.20 - 5.40 07/26/2015 [facility] HEMATOLOGY WBC 7.7 3.7 - 10.4 07/26/2015 [facility] HEMATOLOGY INR 0.94 0.85 - 1.17 07/26/2015 [facility] HEMATOLOGY PT 12.9 12.0 - 14.7 07/26/2015 [facility] URINE AND STOOL UA Turbidity Clear (07/26/15 1:02 PM) Clear 07/26/2015 [facility] URINE AND STOOL UA Spec Grav 1.010 <=1.030 07/26/2015 [facility] URINE AND STOOL UA Color Yellow *NA* (07/26/15 1:02 PM) Yellow 07/26/2015 [facility] URINE AND STOOL UA Leuk Est Negative (07/26/15 1:02 PM) Negative 07/26/2015 [facility] URINE AND STOOL UA Blood Negative (07/26/15 1:02 PM) Negative 07/26/2015 [facility] URINE AND STOOL UA Protein Negative mg/dL Negative mg/dL 07/26/2015 [facility] URINE AND STOOL UA Glucose Negative mg/dL Negative mg/dL 07/26/2015 [facility] URINE AND STOOL UA Urobilinogen 0.2 0.1 - 1.0 07/26/2015 [facility] URINE AND STOOL UA Nitrite Negative (07/26/15 1:02 PM) Negative 07/26/2015 [facility] URINE AND STOOL UA Ketones Negative mg/dL Negative mg/dL 07/26/2015 [facility] URINE AND STOOL UA Bili Negative *NA* (07/26/15 1:02 PM) Negative 07/26/2015 [facility] URINE AND STOOL UA pH 6.5 5.0 - 8.0 07/26/2015 [facility] URINE AND STOOL UA RBC None Seen (07/26/15 1:02 PM) 0 - 2 07/26/2015 [facility] URINE AND STOOL UA WBC None Seen (07/26/15 1:02 PM) None Seen 07/26/2015 [facility] URINE AND STOOL UA Bacteria None Seen (07/26/15 1:02 PM) None Seen 07/26/2015 [facility] URINE AND STOOL UA Sq Epi Rare /LPF Few /LPF 07/26/2015 [facility] ELECTROLYTES AGAP 10.8 10.0 - 20.0 10/09/2014 [facility] ELECTROLYTES eGFR 30 10/09/2014 <sup>3</sup>Result Comment: The eGFR is calculated using the CKD-EPI formula. In most young, healthy individuals the eGFR will be >90 mL/min/1.73m2. The eGFR declines with age. An eGFR of 60-89 may be normal in some populations, particularly the elderly, for whom the CKD-EPI formula has not been extensively validated. Use of the eGFR is not recommended in the following populations:& lt;br/>
Individuals with unstable creatinine concentrations, including patients and those with serious co-morbid conditions.

Patients with extremes in muscle mass or diet.

The data above are obtained from the National Kidney Disease Education Program (NKDEP) which additionally recommends that when the eGFR is used in patients with extremes of body mass index for purposes of drug dosing, the eGFR should be multiplied by the estimated BMI. [facility] ELECTROLYTES Potassium Lvl 3.8 3.5 - 5.1 10/09/2014 [facility] ELECTROLYTES Sodium Lvl 143 135 - 145 10/09/2014 [facility] ELECTROLYTES CO2 29 24 - 32 10/09/2014 [facility] ELECTROLYTES Chloride Lvl 107 95 - 109 10/09/2014 [facility] ELECTROLYTES Creatinine Lvl 1.6 0.5 - 1.4 10/09/2014 [facility] ELECTROLYTES BUN 26 7 - 22 10/09/2014 [facility] ELECTROLYTES Glucose Lvl 96 70 - 99 10/09/2014 <sup>6</sup>Interpretive Data: Adult ref erence range values reflect the clinical guidelines
of the [place] [employer]. [facility] ELECTROLYTES Calcium Lvl 8.6 8.5 - 10.5 10/09/2014 [facility] HEMATOLOGY RDW 13.6 11.5 - 14.5 10/09/2014 [facility] HEMATOLOGY Platelet 203 133 - 450 10/09/2014 [facility] HEMATOLOGY MPV 9.1 7.4 - 10.4 10/09/2014 [facility] HEMATOLOGY Hgb 10.7 12.0 - 16.0 10/09/2014 [facility] HEMATOLOGY Hct 32.5 36.0 - 48.0 10/09/2014 [facility] HEMATOLOGY MCV 85.0 80.0 - 98.0 10/09/2014 [facility] HEMATOLOGY MCH 28.0 27.0 - 31.0 10/09/2014 [facility] HEMATOLOGY MCHC 32.9 32.0 - 36.0 10/09/2014 [facility] HEMATOLOGY WBC 7.1 3.7 - 10.4 10/09/2014 [facility] HEMATOLOGY RBC 3.82 4.20 - 5.40 10/09/2014 [facility] HEMATOLOGY Monocytes 9.4 2.0 - 12.0 10/09/2014 [facility] HEMATOLOGY Eosinophils 5.0 0.0 - 4.0 10/09/2014 [facility] HEMATOLOGY Basophils 0.6 0.0 - 1.0 10/09/2014 [facility] HEMATOLOGY Segs-Bands # 4.4 1.5 - 8.1 10/09/2014 [facility] HEMATOLOGY Lymphocytes # 1.7 1.0 - 5.5 10/09/2014 [facility] HEMATOLOGY Segs 61.0 45.0 - 75.0 10/09/2014 [facility] HEMATOLOGY Lymphocytes 24.0 20.0 - 40.0 10/09/2014 [facility] HEMATOLOGY Eosinophils # 0.4 0.0 - 0.5 10/09/2014 [facility] HEMATOLOGY Monocytes # 0.7 0.0 - 0.8 10/09/2014 [facility] CHEM PANEL eGFR 36 10/07/2014 <sup>4</sup>Result Comment: The eGFR is calculated using the CKD-EPI formula. In most young, healthy individuals the eGFR will be >90 mL/min/1.73m2. The eGFR declines with age. An eGFR of 60-89 may be normal in some populations, particularly the elderly, for whom the CKD-EPI formula has not been extensively validated. Use of the eGFR is not recommended in the following populations:& lt;br/>
Individuals with unstable creatinine concentrations, including patients and those with serious co-morbid conditions.

Patients with extremes in muscle mass or diet.

The data above are obtained from the National Kidney Disease Education Program (NKDEP) which additionally recommends that when the eGFR is used in patients with extremes of body mass index for purposes of drug dosing, the eGFR should be multiplied by the estimated BMI. [facility] CHEM PANEL Chloride Lvl 100 95 - 109 10/07/2014 [facility] CHEM PANEL Potassium Lvl 3.9 3.5 - 5.1 10/07/2014 <sup>1</sup>Result Comment: Specimen Sli ghtly Hemolyzed. [facility] CHEM PANEL Sodium Lvl 138 135 - 145 10/07/2014 [facility] CHEM PANEL Creatinine Lvl 1.4 0.5 - 1.4 10/07/2014 [facility] CHEM PANEL BUN 32 7 - 22 10/07/2014 [facility] CHEM PANEL Calcium Lvl 8.9 8.5 - 10.5 10/07/2014 [facility] CHEM PANEL AGAP 13.9 10.0 - 20.0 10/07/2014 [facility] CHEM PANEL CO2 28 24 - 32 10/07/2014 [facility] CHEM PANEL Glucose Lvl 106 70 - 99 10/07/2014 <sup>7</sup>Interpretive Data: Adult ref erence range values reflect the clinical guidelines
of the [place] [employer]. [facility] HEMATOLOGY RBC 4.32 4.20 - 5.40 10/07/2014 [facility] HEMATOLOGY Hct 37.1 36.0 - 48.0 10/07/2014 [facility] HEMATOLOGY WBC 8.7 3.7 - 10.4 10/07/2014 [facility] HEMATOLOGY Hgb 12.2 12.0 - 16.0 10/07/2014 [facility] HEMATOLOGY MCV 85.8 80.0 - 98.0 10/07/2014 [facility] HEMATOLOGY Platelet 163 133 - 450 10/07/2014 [facility] HEMATOLOGY MCH 28.2 27.0 - 31.0 10/07/2014 [facility] HEMATOLOGY MCHC 32.9 32.0 - 36.0 10/07/2014 [facility] HEMATOLOGY RDW 13.5 11.5 - 14.5 10/07/2014 [facility] HEMATOLOGY MPV 9.6 7.4 - 10.4 10/07/2014 [facility] HEMATOLOGY Monocytes 9.0 2.0 - 12.0 10/07/2014 [facility] HEMATOLOGY Eosinophils 3.3 0.0 - 4.0 10/07/2014 [facility] HEMATOLOGY Basophils 0.6 0.0 - 1.0 10/07/2014 [facility] HEMATOLOGY Lymphocytes # 1.4 1.0 - 5.5 10/07/2014 [facility] HEMATOLOGY Segs 71.0 45.0 - 75.0 10/07/2014 [facility] HEMATOLOGY Lymphocytes 16.1 20.0 - 40.0 10/07/2014 [facility] HEMATOLOGY Segs-Bands # 6.2 1.5 - 8.1 10/07/2014 [facility] HEMATOLOGY Monocytes # 0.8 0.0 - 0.8 10/07/2014 [facility] HEMATOLOGY Eosinophils # 0.3 0.0 - 0.5 10/07/2014 [facility] CHEM PANEL Magnesium Lvl 1.5 1.8 - 2.4 10/07/2014 [facility] CHEM PANEL eGFR 23 10/07/2014 <sup>5</sup>Result Comment: The eGFR is calculated using the CKD-EPI formula. In most young, healthy individuals the eGFR will be >90 mL/min/1.73m2. The eGFR declines with age. An eGFR of 60-89 may be normal in some populations, particularly the elderly, for whom the CKD-EPI formula has not been extensively validated. Use of the eGFR is not recommended in the following populations:& lt;br/>
Individuals with unstable creatinine concentrations, including patients and those with serious co-morbid conditions.

Patients with extremes in muscle mass or diet.

The data above are obtained from the National Kidney Disease Education Program (NKDEP) which additionally recommends that when the eGFR is used in patients with extremes of body mass index for purposes of drug dosing, the eGFR should be multiplied by the estimated BMI. [facility] CHEM PANEL Bili Total 0.6 0.2 - 1.3 10/07/2014 [facility] CHEM PANEL Chloride Lvl 97 95 - 109 10/07/2014 [facility] CHEM PANEL Potassium Lvl 2.9 3.5 - 5.1 10/07/2014 <sup>2</sup>Result Comment: Critical Res ult(s) called to jina padilla at 10/07/2014 00:04 by maris. Read back OK. [facility] CHEM PANEL Globulin 4.0 2.0 - 4.0 10/07/2014 [facility] CHEM PANEL A/G Ratio 0.8 0.7 - 1.6 10/07/2014 [facility] CHEM PANEL ALT 24 0 - 65 10/07/2014 [facility] CHEM PANEL Alk Phos 77 39 - 136 10/07/2014 [facility] CHEM PANEL AST 14 0 - 37 10/07/2014 [facility] CHEM PANEL Glucose Lvl 193 70 - 99 10/07/2014 <sup>8</sup>Interpretive Data: Adult ref erence range values reflect the clinical guidelines
of the [place] [employer]. [facility] CHEM PANEL B/C Ratio 18 6 - 25 10/07/2014 [facility] CHEM PANEL Calcium Lvl 8.9 8.5 - 10.5 10/07/2014 [facility] CHEM PANEL Albumin Lvl 3.3 3.5 - 5.0 10/07/2014 [facility] CHEM PANEL AGAP 13.9 10.0 - 20.0 10/07/2014 [facility] CHEM PANEL CO2 28 24 - 32 10/07/2014 [facility] CHEM PANEL Sodium Lvl 136 135 - 145 10/07/2014 [facility] CHEM PANEL Creatinine Lvl 2.0 0.5 - 1.4 10/07/2014 [facility] CHEM PANEL BUN 35 7 - 22 10/07/2014 [facility] CHEM PANEL Total Protein 7.3 6.4 - 8.4 10/07/2014 [facility] CHEM PANEL Uric Acid 11.1 2.5 - 7.0 10/07/2014 [facility] HEMATOLOGY Platelet 211 133 - 450 10/07/2014 [facility] HEMATOLOGY RDW 13.4 11.5 - 14.5 10/07/2014 [facility] HEMATOLOGY MCHC 33.6 32.0 - 36.0 10/07/2014 [facility] HEMATOLOGY MPV 8.6 7.4 - 10.4 10/07/2014 [facility] HEMATOLOGY RBC 4.15 4.20 - 5.40 10/07/2014 [facility] HEMATOLOGY WBC 10.5 3.7 - 10.4 10/07/2014 [facility] HEMATOLOGY MCV 85.5 80.0 - 98.0 10/07/2014 [facility] HEMATOLOGY Hgb 11.9 12.0 - 16.0 10/07/2014 [facility] HEMATOLOGY Hct 35.5 36.0 - 48.0 10/07/2014 [facility] HEMATOLOGY MCH 28.7 27.0 - 31.0 10/07/2014 [facility] HEMATOLOGY INR 1.08 0.85 - 1.17 10/07/2014 <sup>9</sup>Interpretive Data: RECOMMEND ED RANGES FOR PROTIME INR:
2.0-3.0 for most medical and surgical thromboembolic states.
2.5-3.5 for artificial heart valves and recurrent embolism.

INR SHOULD BE USED ONLY FOR PATIENTS ON STABLE ANTICOAGULANT THERAPY. [facility] HEMATOLOGY PT 14.1 12.0 - 14.7 10/07/2014 [facility] HEMATOLOGY PTT 33.7 22.9 - 35.8 10/07/2014 <sup>10</sup>Interpretive Data: Heparin Therapeutic Range: 57 - 92 Seconds [facility] HEMATOLOGY Segs 73.3 45.0 - 75.0 10/07/2014 [facility] HEMATOLOGY Eosinophils 1.5 0.0 - 4.0 10/07/2014 [facility] HEMATOLOGY Lymphocytes 17.1 20.0 - 40.0 10/07/2014 [facility] HEMATOLOGY Basophils 0.5 0.0 - 1.0 10/07/2014 [facility] HEMATOLOGY Monocytes 7.6 2.0 - 12.0 10/07/2014 [facility] HEMATOLOGY Segs-Bands # 7.7 1.5 - 8.1 10/07/2014 [facility] HEMATOLOGY Lymphocytes # 1.8 1.0 - 5.5 10/07/2014 [facility] HEMATOLOGY Eosinophils # 0.2 0.0 - 0.5 10/07/2014 [facility] HEMATOLOGY Monocytes # 0.8 0.0 - 0.8 10/07/2014 [facility] HEMATOLOGY Basophils # 0.1 0.0 - 0.2 10/07/2014 [facility] URINALYSIS UA Nitrite Negat alisha (05/13/2013 20:29:00) Negati ve 05/14/2013 Normal [facility] URINALYSIS UA Urobilinogen 0.2 0.1 - 1.0 05/14/2013 Normal [facility] URINALYSIS UA Leuk Est Trace *ABN* (05/13/2013 20:29:00) Negati ve 05/14/2013 ABN [facility] URINALYSIS UA Ketones Negat alisha *NA* (05/13/2013 20:29:00) Negati ve 05/14/2013 [facility] URINALYSIS UA Blood Small *ABN* (05/13/2013 20:29:00) Negati ve 05/14/2013 ABN [facility] URINALYSIS UA Bili Negat alisha *NA* (05/13/2013 20:29:00) Negati ve 05/14/2013 [facility] URINALYSIS UA Protein Negat alisha (05/13/2013 20:29:00) Negati ve 05/14/2013 Normal [facility] URINALYSIS UA pH 6.0 5.0 - 8.0 05/14/2013 Normal [facility] URINALYSIS UA Color Yello w *NA* (05/13/2013 20:29:00) Yellow 05/14/2013 [facility] URINALYSIS UA Glucose Negat alisha (05/13/2013 20:29:00) Negati ve 05/14/2013 Normal [facility] URINALYSIS UA Spec Grav 1.015 <=1.030 05/14/2013 Normal [facility] URINALYSIS UA Turbidity Clear (05/13/2013 20:29:00) Clear 05/14/2013 Normal [facility] URINALYSIS UA Bacteria Occas ional /HPF None Seen 05/14/2013 Normal [facility] URINALYSIS UA Mucus None Seen (05/13/2013 20:29:00) None S een 05/14/2013 Normal [facility] URINALYSIS UA RBC 11-20 /HPF 0 - 2 05/14/2013 ABN [facility] URINALYSIS UA WBC 3-5 /HPF None Seen 05/14/2013 Normal [facility] URINALYSIS UA Sq Epi Few /LPF Few 05/14/2013 Normal [facility] URINALYSIS Micro? Perfo rmed (05/13/2013 15:00:48) 05/13/2013 Normal [facility] URINALYSIS UA pH 6.0 5.0 - 8.0 05/13/2013 Normal [facility] URINALYSIS UA Glucose Negat alisha (05/13/2013 15:00:48) Negati ve 05/13/2013 Normal [facility] URINALYSIS UA Ketones Negat alisha *NA* (05/13/2013 15:00:48) Negati ve 05/13/2013 [facility] URINALYSIS UA Protein Negat alisha (05/13/2013 15:00:48) Negati ve 05/13/2013 Normal [facility] URINALYSIS UA Color Yello w *NA* (05/13/2013 15:00:48) Yellow 05/13/2013 [facility] URINALYSIS UA Turbidity Clear (05/13/2013 15:00:48) Clear 05/13/2013 Normal [facility] URINALYSIS UA Spec Grav 1.005 <=1.030 05/13/2013 Normal [facility] URINALYSIS UA Bili Negat alisha *NA* (05/13/2013 15:00:48) Negati ve 05/13/2013 [facility] URINALYSIS UA Blood Moder ate *ABN* (05/13/2013 15:00:48) Negati ve 05/13/2013 ABN [facility] URINALYSIS UA Leuk Est Negat alisha (05/13/2013 15:00:48) Negati ve 05/13/2013 Normal [facility] URINALYSIS UA Nitrite Negat alisha (05/13/2013 15:00:48) Negati ve 05/13/2013 Normal [facility] URINALYSIS UA Urobilinogen 0.2 0.1 - 1.0 05/13/2013 Normal [facility] URINALYSIS UA WBC 0-2 /HPF None Seen 05/13/2013 Normal [facility] URINALYSIS UA Sq Epi Rare /LPF Few 05/13/2013 Normal [facility] URINALYSIS UA Bacteria Occas ional /HPF None Seen 05/13/2013 Normal [facility] URINALYSIS UA RBC 6-10 /HPF 0 - 2 05/13/2013 ABN [facility] URINALYSIS UA Mucus None Seen (05/13/2013 15:00:48) None S een 05/13/2013 Normal [facility] URINALYSIS UA Blood Trace *ABN* (08/19/2011 21:15:00) Negati ve 08/20/2011 ABN [facility] URINALYSIS UA Nitrite Negat alisha (08/19/2011 21:15:00) Negati ve 08/20/2011 Normal [facility] URINALYSIS UA Urobilinogen 0.2 0.1 - 1.0 08/20/2011 Normal [facility] URINALYSIS UA Bili Negat alisha *NA* (08/19/2011 21:15:00) Negati ve 08/20/2011 NA [facility] URINALYSIS UA Ketones Negat alisha *NA* (08/19/2011 21:15:00) Negati ve 08/20/2011 NA [facility] URINALYSIS UA WBC 0-2 / HPF (08/19/2011 21:15:00) None S een 08/20/2011 Normal [facility] URINALYSIS UA Sq Epi Few / LPF (08/19/2011 21:15:00) Few 08/20/2011 Normal [facility] URINALYSIS UA Bacteria Few / HPF (08/19/2011 21:15:00) None S een 08/20/2011 Normal [facility] URINALYSIS UA RBC 0-2 / HPF (08/19/2011 21:15:00) 0 - 2 08/20/2011 Normal [facility] URINALYSIS Micro? Perfo rmed (08/19/2011 21:15:00) 08/20/2011 Normal [facility] URINALYSIS UA Leuk Est Negat alisha (08/19/2011 21:15:00) Negati ve 08/20/2011 Normal [facility] URINALYSIS UA pH 6.0 5.0 - 8.0 08/20/2011 Normal [facility] URINALYSIS UA Glucose Negat alisha (08/19/2011 21:15:00) Negati ve 08/20/2011 Normal [facility] URINALYSIS UA Protein Negat alisha (08/19/2011 21:15:00) Negati ve 08/20/2011 Normal [facility] URINALYSIS UA Turbidity Clear (08/19/2011 21:15:00) Clear 08/20/2011 Normal [facility] URINALYSIS UA Color Yello w *NA* (08/19/2011 21:15:00) Yellow 08/20/2011 NA [facility] URINALYSIS UA Spec Grav 1.020 <=1.030 08/20/2011 Normal [facility] CHEMISTRY Glucose Lvl 150 08/20/2011 NA <sup>1</sup>Interpretive Data: Reference Ranges : 0 - 7 days : 41 - 90 mg/dL 7 days - 150 yrs : 70 - 99 mg/dL (fasting), based on the clinical recommendations of the [place] [employer]. [facility] CHEMISTRY Sodium Lvl 142 135 - 145 08/20/2011 Normal [facility] CHEMISTRY BUN 20 7 - 22 08/20/2011 Normal [facility] CHEMISTRY Creatinine Lvl 1.1 0.5 - 1.4 08/20/2011 Normal [facility] CHEMISTRY Calcium Lvl 8.6 8.5 - 10.5 08/20/2011 Normal [facility] CHEMISTRY Chloride Lvl 106 95 - 109 08/20/2011 Normal [facility] CHEMISTRY Potassium Lvl 3.7 3.5 - 5.1 08/20/2011 Normal [facility] CHEMISTRY CO2 29 24 - 32 08/20/2011 Normal [facility] CHEMISTRY AGAP 10.7 10.0 - 20.0 08/20/2011 Normal [facility] CHEMISTRY Phosphorus 3.6 2.5 - 4.5 08/20/2011 Normal [facility] CHEMISTRY Total CK 119 12 - 191 08/20/2011 Normal [facility] CHEMISTRY Magnesium Lvl 1.9 1.8 - 2.4 08/20/2011 Normal [facility] CHEMISTRY Troponin-I <0.02 0.00 - 0.40 08/20/2011 Normal [facility] CHEMISTRY Troponin-T <0.010 0.000 - 0.100 08/20/2011 Normal [facility] CHEMISTRY CK MB Index 1.2 0.0 - 2.5 08/20/2011 Normal [facility] CHEMISTRY CK MB 1.4 0.5 - 3.6 08/20/2011 Normal [facility] HEMATOLOGY PTT 30.9 22.9 - 35.8 08/20/2011 Normal <sup>3</sup>Interpretive Data: Heparin T herapeutic Range: 57 - 92 Seconds [facility] HEMATOLOGY PT 12.2 12.0 - 14.7 08/20/2011 Normal [facility] HEMATOLOGY INR 0.90 0.85 - 1.17 08/20/2011 Normal <sup>2</sup>Interpretive Data: RECOMMEND ED RANGES FOR PROTIME INR: 2.0-3.0 for most medical and surgical thromboembolic states. 2.5-3.5 for artificial heart valves and recurrent embolism. INR SHOULD BE USED ONLY FOR PATIENTS ON STABLE ANTICOAGULANT THERAPY. [facility] HEMATOLOGY Hct 36.8 36.0 - 48.0 08/20/2011 Normal [facility] HEMATOLOGY Hgb 11.9 12.0 - 16.0 08/20/2011 LOW [facility] HEMATOLOGY RBC 4.30 4.20 - 5.40 08/20/2011 Normal [facility] HEMATOLOGY MCV 85.6 81.0 - 99.0 08/20/2011 Normal [facility] HEMATOLOGY RDW 13.8 11.5 - 14.5 08/20/2011 Normal [facility] HEMATOLOGY Platelet 220 133 - 450 08/20/2011 Normal [facility] HEMATOLOGY MCH 27.7 27.0 - 31.0 08/20/2011 Normal [facility] HEMATOLOGY MCHC 32.3 32.0 - 36.0 08/20/2011 Normal [facility] HEMATOLOGY MPV 8.4 7.4 - 10.4 08/20/2011 Normal [facility] HEMATOLOGY WBC 6.4 3.7 - 10.4 08/20/2011 Normal [facility] HEMATOLOGY Eosinophils # 0.2 0.0 - 0.5 08/20/2011 Normal [facility] HEMATOLOGY Monocytes # 0.6 0.0 - 0.8 08/20/2011 Normal [facility] HEMATOLOGY Basophils 0.2 0.0 - 1.0 08/20/2011 Normal [facility] HEMATOLOGY Segs-Bands # 3.3 1.5 - 8.1 08/20/2011 Normal [facility] HEMATOLOGY Lymphocytes # 2.3 1.0 - 5.5 08/20/2011 Normal [facility] HEMATOLOGY Basophils # 0.0 0.0 - 0.2 08/20/2011 Normal [facility] HEMATOLOGY Lymphocytes 35.3 20.0 - 40.0 08/20/2011 Normal [facility] HEMATOLOGY Segs 51.1 45.0 - 75.0 08/20/2011 Normal [facility] HEMATOLOGY Eosinophils 3.3 0.0 - 4.0 08/20/2011 Normal [facility] HEMATOLOGY Monocytes 10.1 2.0 - 12.0 08/20/2011 Normal [facility] Pathology Reports No Data Provided for This Section Diagnostic Reports Report Value Date Source Barium swallow DX EXAM: Barium swallow DX DATE: 02/06/2019 10:01 CDT. INDICATION: - K21.9 Gastro-esophageal reflux disease without esophagitis. COMPARISON: Chest radiograph dated 01/08/2019. TECHNIQUE: Barium esophagram was performed using double contrast technique. FLUOROSCOPY Time: 1 minute 47 sec. Exposures: 41 FINDINGS: Swallowing: Normal. No penetration or aspiration. Esophagus: * Motility: Moderate esophageal dysmotility with intermittent tertiary contractions * Anatomy: No filling defects, mucosal irregularities, obstructions or extrinsic compressions identified. Hiatal hernia: None. Gastroesophageal reflux: Spontaneous reflux was noted to the thoracic inlet IMPRESSION: 1. Spontaneous reflux to the thoracic i nlet with moderate esophageal dysmotility. 2. No esophageal mucosal irregularity. 02/06/2019 [facility] Chest 2 views DX EXAM: XR CHES T 2 VIEWS DATE: 01/08/2019 14:58 CDT INDICATION: - R05 Cough COMPARISON: March 08, 2017 TECHNIQUE: PA and lateral chest radiographs FINDINGS: BONES: Moderately prominent degenerative changes are present in the thoracic spine with anterior osteophytes most prominent in the mid and lower spine. There is mild anterior disc space loss with mild anterior wedge deformity is in the mid thoracic vertebra creating a mildly prominent kyphosis. HEART: [Normal in size and configuration] Mediastinum and Irasema: [No mass or vascular abnormality] Lungs: [The lungs are clear, and there is no pleural effusion. IMPRESSION: No acute cardiopulmonary disease. 2. Mild/moderate degenerative changes ar e present in the thoracic spine. 01/08/2019 [facility] [place] Chest 2 views DX EXAM: XR CHES T 2 VIEWS DATE: 03/08/2017 at 0504 hours INDICATION: - chest pain COMPARISON: Chest radiograph 08/26/2015. TECHNIQUE: PA and lateral chest radiographs FINDINGS: Lines, tubes and hardware: None. Lungs and pleura: No pulmonary or pleural based abnormality is identified. Pulmonary vascularity is normal. Heart and mediastinum: The heart size is normal. The mediastinal contours are normal. Bones: No acute bony abnormality is identified. IMPRESSION: No acute cardiopulmonary abnormality. UT SECTION: ER 03/08/2017 [facility] Abdomen/Pelvis wo IV contrast CT EXAM: Abdomen/Pelvis wo IV contrast CT HISTORY: Abdominal pain, acute COMPARISON: 01/25/2007 ultrasound 06/16/2014 CT imaging of the abdomen and pelvis was obtained without intravenous contrast. Sagittal and coronal reformations were reviewed. Oral contrast was administered DLP: 1239 mGy cm. FINDINGS: The bilateral lung bases are clear. Imaging of the organs is limited by noncontrast technique. The liver appears normal without focal lesion. There is no biliary ductal dilation. The gallbladder is unremarkable. The spleen, pancreas, and bilateral adrenal glands are unremarkable for noncontrast technique. No renal stone. No hydronephrosis is present. There is a hypodensity arising from the lower pole the left kidney, corresponding to the septated cyst from the prior ultrasound. The bowel is nondilated without evidence of inflammation. There is no evidence of appendicitis. Diverticulosis There is no free air or free fluid. No significant abdominal or pelvic lymphadenopathy is noted. No pelvic mass. The bladder is unremarkable. No aggressive osseous lesion is identified. Mild discogenic degenerative changes are noted. IMPRESSION: There is diverticulosis without evidence of diverticulitis. Sonographic surveillance of the left renal hypodense lesion is recommended. 02/07/2016 [facility] Liver w Liver vessels Doppler US Exam: Liver ultrasound with Doppler evaluation Reason for Exam: Abdominal pain, [id number] Right upper quadrant pain Comparison Exam: 11/21/2013 Discussion: Multiple axial and sagittal images were obtained of the liver. Liver is slightly enlarged. It is of increased echogenicity suggestive of mild diffuse fatty infiltration. The liver contour is smooth. No focal hepatic masses. The main portal vein is hepatopetal in flow measuring approximately 0.8 cm in diameter. The visualized portions of the hepatic veins and hepatic arteries are unremarkable. No intrahepatic or extrahepatic biliary duct dilation, with the common bile duct measuring 0.5 cm. No gallstones or gallbladder sludge. No gallbladder wall thickening or pericholecystic fluid. Sonographic Linda's sign is negative. Visualized portions of the pancreatic head and proximal body are within normal limits. No evidence seen for ascites. Impression: 1. Findings suggestive of mild diffuse f atty infiltration involving the liver. Doppler evaluation of the liver is unremarkable. 02/07/2016 [facility] Foot series DX Right foot x-ra y series 3 views History: 80-year-old female with right foot pain. Comparison: None. Findings: There is no evidence for fracture or osseous destruction. 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 The 5th metatarsal at base lateral has subcortical cysts that are extra-articular. No radiopaque foreign bodies are seen. Impression: No acute bone injury to the right foot. Moderate osteoarthritic changes seen throughout forefoot and at base of 5th metatarsal. 12/17/2015 [facility] Chest 1view DX EXAM: XR CHEST 1 VIEW DATE: Jul 26, 2015 12:36:00 PM INDICATION: Chest pain. TECHNIQUE: A single portable chest radiograph is compared to January 25, 2012. DISCUSSION: Left basilar atelectasis or scarring is demonstrated with blunting of the costophrenic sulcus. There could be a small pleural effusion. These changes are new since the prior study. No other pulmonary or pleural-based abnormality is identified. The cardiomediastinal silhouette, remaining soft tissues and osseous structures are also unchanged. IMPRESSION: Left costophrenic sulcus blunting with basilar atelectasis. A component of pleural fluid may be present. 07/26/2015 [facility] Ext Lower Venous Doppler Unilat US EXAM: US LEFT LOWER EXTREMITY VENOUS DOPPLER DATE: 10/07/2014 at 0751 hours. INDICATION: Pain in limb COMPARISON: None. TECHNIQUE: Multiplanar grayscale, color Doppler and spectral Doppler ultrasound images of the left lower extremity veins were obtained. FINDINGS: The left common femoral, greater saphenous, superficial femoral, and popliteal veins demonstrate normal compressibility and color Doppler signal. IMPRESSION: 1. Negative for left lower extremity huang p vein thrombosis. 10/07/2014 [facility] Ankle 3 views DX EXAM: XR LEFT ANKLE 3 VIEWS EXAM: XR LEFT FOOT 3 VIEWS DATE: 2014-10-07 00:16:00 INDICATION: Pain, erythema and swelling of the left foot, developed abruptly 10/02/2014. Denies recent cuts, trauma, or loss of sensation to the foot. COMPARISON: None available. TECHNIQUE: AP, oblique, and lateral radiographs of the left ankle and foot. FINDINGS: No fracture, dislocation or other acute bony abnormality is identified. No osseous destruction or periosteal reaction is identified. No erosion is identified. Mild soft tissue swelling of the foot is present, most notably circumferentially about the forefoot. No subcutaneous emphysema, abnormal soft tissue calcification, or radiopaque foreign body is identified. Moderate size Achilles and small plantar calcaneal enthesophytes are present. Cortical irregularity of the medial malleolar tip suggest remote ligamentous injury. Mild osteoarthrosis of the posterior subtalar joint and great toe metatarsophalangeal (MTP) joint is present. IMPRESSION: 1. No acute bony abnormality. No radiogr aphic finding of osseous destruction to suggest osteomyelitis. 2. Mild soft tissue swelling of the foot , nonspecific, most notably circumferentially about the forefoot. 3. Multifocal degenerative changes, as a guille. 10/07/2014 [facility] Foot 2 views DX EXAM: XR LEFT ANKLE 3 VIEWS EXAM: XR LEFT FOOT 3 VIEWS DATE: 2014-10-07 00:16:00 INDICATION: Pain, erythema and swelling of the left foot, developed abruptly 10/02/2014. Denies recent cuts, trauma, or loss of sensation to the foot. COMPARISON: None available. TECHNIQUE: AP, oblique, and lateral radiographs of the left ankle and foot. FINDINGS: No fracture, dislocation or other acute bony abnormality is identified. No osseous destruction or periosteal reaction is identified. No erosion is identified. Mild soft tissue swelling of the foot is present, most notably circumferentially about the forefoot. No subcutaneous emphysema, abnormal soft tissue calcification, or radiopaque foreign body is identified. Moderate size Achilles and small plantar calcaneal enthesophytes are present. Cortical irregularity of the medial malleolar tip suggest remote ligamentous injury. Mild osteoarthrosis of the posterior subtalar joint and great toe metatarsophalangeal (MTP) joint is present. IMPRESSION: 1. No acute bony abnormality. No radiogr aphic finding of osseous destruction to suggest osteomyelitis. 2. Mild soft tissue swelling of the foot , nonspecific, most notably circumferentially about the forefoot. 3. Multifocal degenerative changes, as a guille. 10/07/2014 [facility] Retroperitoneal complete w Doppler US BILATERAL RENAL ULTRASOUND WITH DOPPLER EVALUATION. REASON FOR EXAM: Abnormal renal function COMPARISON EXAM: Previous renal ultrasound of 02/21/2010 FINDINGS: Multiple sagittal and axial images were obtained of the kidneys. The right kidney measures 9.9 cm. The cortical thickness is approximately 1.1 cm. It is of normal echogenicity without focal masses, hydronephrosis, or shadowing renal calculi. The left kidney measures 10. cm. The cortical thickness is approximately 1.3 cm. It is of normal echogenicity without hydronephrosis or shadowing renal calculi. A cyst containing a thin septation is again seen in the superior pole currently measuring 3.3 cm in maximal dimension, previously 2.1 cm in maximal dimension. The highest right main renal artery PSV is 132 cm/sec. Resistive indices are seen to be 0.71 at the superior and inferior poles. The highest left main renal artery PSV is 104 cm/sec. Resistive indices range between 0.72-0.74. The abdominal aorta PSV is 93 cm/sec. The right renal artery/aorta ratio is within normal limits at 1.4. The left renal artery/aorta ratio is within normal limits at 1.3. The urinary bladder is normal in appearance without evidence for mural nodularity or wall thickening. Bilateral ureteral jets are visualized. IMPRESSION: 1. No sonographic evidence of renal ngozi ry stenosis. 2. Interval increase in size of septated left renal cyst. 3. Mildly elevated resistive indices arlet aterally, may be related to chronic renal parenchymal disease. 06/16/2014 [facility] Abdomen RUQ US EXAM: US ABDOME N LIMITED DATE: November 21, 2013 09:36:00 AM. INDICATION: Weight loss. ADDITIONAL INFORMATION: None. COMPARISON: Abdominal sonogram 12/23/2008. TECHNIQUE: Multiple grayscale and color Doppler ultrasound images of the RUQ abdomen were obtained. FINDINGS: Liver demonstrates normal echogenicity without masses. Right hepatic lobe measures 16 cm at the midclavicular line. Main portal vein is patent measuring 9 mm in diameter with hepatopetal flow. Gallbladder normal without gallstones. Gallbladder wall thickness is 2 mm. No sonographic Linda's sign or pericholecystic fluid. Visualized portions of the intrahepatic biliary tree are of normal caliber. Common duct is 3 mm. Pancreas is normal. Right kidney is normal in size, shape, and echotexture without masses or hydronephrosis. Right kidney measures 10.0 x 4.8 x 4.3 cm. Inferior vena cava is patent. IMPRESSION: Normal right upper quadrant sonogram. 11/21/2013 [facility] Consultation Notes No Data Provided for This Section Discharge Summaries No Data Provided for This Section History and Physicals No Data Provided for This Section Vital Signs Vital Sign Value Date Comments Source Systolic (mm Hg) 147 03/11/2020 [facility] Diastolic (mm Hg) 71 03/11/2020 [facility] Heart Rate 75 03/11/2020 [facility] Height 162.56 cm 03/11/2020 [facility] Weight 82.386 03/11/2020 [facility] BMI Calculated 31.18 03/11/2020 [facility] Systolic (mm Hg) 135 05/08/2019 [facility] Diastolic (mm Hg) 68 05/08/2019 [facility] Heart Rate 72 05/08/2019 [facility] Height 160.02 cm 05/08/2019 [facility] Weight 81.364 05/08/2019 [facility] BMI Calculated 31.77 05/08/2019 [facility] BMI Calculated 32.88 01/23/2019 [facility] Weight 81.534 01/23/2019 [facility] Height 157.48 cm 01/23/2019 [facility] Systolic (mm Hg) 125 01/23/2019 [facility] Diastolic (mm Hg) 68 01/23/2019 [facility] Heart Rate 87 01/23/2019 [facility] BMI Calculated 30.93 12/12/2018 [facility] Weight 81.727 12/12/2018 [facility] Height 162.56 cm 12/12/2018 [facility] Systolic (mm Hg) 143 12/12/2018 [facility] Diastolic (mm Hg) 76 12/12/2018 [facility] Heart Rate 82 12/12/2018 [facility] Respitory Rate 16 12/12/2018 [facility] Respitory Rate 28 03/08/2017 [facility] Systolic (mm Hg) 164 03/08/2017 [facility] Diastolic (mm Hg) 79 03/08/2017 [facility] Respitory Rate 17 03/08/2017 [facility] Systolic (mm Hg) 166 03/08/2017 [facility] Diastolic (mm Hg) 69 03/08/2017 [facility] Systolic (mm Hg) 181 03/08/2017 [facility] Diastolic (mm Hg) 78 03/08/2017 [facility] Respitory Rate 16 03/08/2017 [facility] Weight 79.545 03/08/2017 [facility] Height 162.56 cm 03/08/2017 [facility] BMI Calculated 30.1 03/08/2017 [facility] Temperature Oral (F) 97.8 F 03/08/2017 [facility] Heart Rate 64 03/08/2017 [facility] Weight 82.727 03/28/2016 [facility] BMI Calculated 31.31 03/28/2016 [facility] Heart Rate 70 03/28/2016 [facility] Temperature Oral (F) 96.0 F 03/28/2016 [facility] Height 162.56 cm 03/28/2016 [facility] Systolic (mm Hg) 152 03/28/2016 [facility] Diastolic (mm Hg) 59 03/28/2016 [facility] Height 162.56 cm 02/28/2016 [facility] BMI Calculated 31.82 02/28/2016 [facility] Weight 84.091 02/28/2016 [facility] Heart Rate 62 02/28/2016 [facility] Systolic (mm Hg) 174 02/28/2016 [facility] Diastolic (mm Hg) 70 02/28/2016 [facility] Weight 82.273 01/31/2016 [facility] BMI Calculated 31.13 01/31/2016 [facility] Height 162.56 cm 01/31/2016 [facility] Heart Rate 59 01/31/2016 [facility] Systolic (mm Hg) 134 01/31/2016 [facility] Diastolic (mm Hg) 62 01/31/2016 [facility] Systolic (mm Hg) 123 07/27/2015 [facility] Diastolic (mm Hg) 56 07/27/2015 [facility] Respitory Rate 18 07/27/2015 [facility] Heart Rate 57 07/27/2015 [facility] Temperature Oral (F) 97.8 F 07/27/2015 [facility] Temperature Oral (F) 97.8 F 07/27/2015 [facility] Heart Rate 65 07/27/2015 [facility] Respitory Rate 18 07/27/2015 [facility] Systolic (mm Hg) 111 07/27/2015 [facility] Diastolic (mm Hg) 46 07/27/2015 [facility] Systolic (mm Hg) 116 07/27/2015 [facility] Diastolic (mm Hg) 52 07/27/2015 [facility] Respitory Rate 18 07/27/2015 [facility] Heart Rate 60 07/27/2015 [facility] Temperature Oral (F) 98.0 F 07/27/2015 [facility] Weight 80.636 07/26/2015 [facility] BMI Calculated 30.51 07/26/2015 [facility] Height 162.56 cm 07/26/2015 [facility] Height 162.56 cm 07/26/2015 [facility] BMI Calculated 30.96 07/26/2015 [facility] Weight 81.818 07/26/2015 [facility] Respitory Rate 20 10/09/2014 [facility] Heart Rate 61 10/09/2014 [facility] Temperature Oral (F) 98.0 F 10/09/2014 [facility] Systolic (mm Hg) 124 10/09/2014 [facility] Diastolic (mm Hg) 60 10/09/2014 [facility] Heart Rate 64 10/09/2014 [facility] Respitory Rate 20 10/09/2014 [facility] Temperature Oral (F) 99.1 F 10/09/2014 [facility] Systolic (mm Hg) 131 10/09/2014 [facility] Diastolic (mm Hg) 51 10/09/2014 [facility] Systolic (mm Hg) 118 10/09/2014 [facility] Diastolic (mm Hg) 51 10/09/2014 [facility] Temperature Oral (F) 98.9 F 10/09/2014 [facility] Respitory Rate 18 10/09/2014 [facility] Heart Rate 63 10/09/2014 [facility] BMI Calculated 30.27 10/07/2014 [facility] Height 162.56 cm 10/07/2014 [facility] Weight 80 0 10/07/2014 [facility] BMI Calculated 33.37 11/17/2013 [facility] Weight 88.182 11/17/2013 [facility] Height 162.56 cm 11/17/2013 [facility] Temperature Oral (F) 97.4 F 05/14/2013 [facility] Heart Rate 60 05/14/2013 [facility] Respitory Rate 20 05/14/2013 [facility] Systolic (mm Hg) 200 05/14/2013 [facility] Diastolic (mm Hg) 85 05/14/2013 [facility] Heart Rate 69 05/14/2013 [facility] Respitory Rate 20 05/14/2013 [facility] Temperature Oral (F) 98.1 F 05/14/2013 [facility] Systolic (mm Hg) 170 05/14/2013 [facility] Diastolic (mm Hg) 62 05/14/2013 [facility] Weight 81.818 05/13/2013 [facility] Height 162.56 cm 05/13/2013 [facility] Temperature Oral (F) 99.0 F 05/13/2013 [facility] Systolic (mm Hg) 201 05/13/2013 [facility] Respitory Rate 20 05/13/2013 [facility] Heart Rate 68 05/13/2013 [facility] Diastolic (mm Hg) 81 05/13/2013 [facility] Height 162.56 cm 02/28/2012 [facility] Weight 86.364 02/28/2012 [facility] Weight 90.909 01/25/2012 [facility] Height 167.64 cm 01/25/2012 [facility] Weight 84.091 08/20/2011 [facility] Height 165.10 cm 08/20/2011 [facility] Encounters Location Location Details Encounter Type Encounter Number Reason For Visit Attending Provider ADM Date DC Date Status Source [facility] Emergency [id number] OSCAR JONES 08/19/2011 08/19/2011 Discharged [facility] Emergency [id number] OTHER ROSALINE PANTERA 05/13/2013 05/13/2013 Active [facility] AUDIT [id number] 05/21/2013 05/21/2013 [facility], Provi jovan: JOHANNA INTERIANO, Status: Pen, Time: 9:30 AM [id number] 06/04/2013 05/21/2013 [facility] Outpatient [id number] Atilla Ertan 11/17/2013 11/18/2013 [facility] Bedded Outpatient [id number] Atilla Ertan 11/20/2013 11/20/2013 [facility] [place] [facility] Di[facility] Services [id number] Atilla Ertan 11/21/2013 11/22/2013 [facility] [place] [facility] [id number] Belén Perkins 06/16/2014 06/17/2014 [facility] OBS Observation Patient [id number] Prieto Arriaza Jr 10/06/2014 10/09/2014 [facility] OBS Observation Patient [id number] José William 07/26/2015 07/28/2015 [facility] Outpatient [facility] [place] [facility] [id number] 08 Fidencio Mack 12/17/2015 12/18/2015 [facility] [place] [facility] Outpatient [id number] Raimundo Marsh 01/31/2016 02/01/2016 [facility] [place] Out[facility] Services [id number] Non Physician 02/07/2016 02/08/2016 [facility] Outpatient [id number] Raimundo Marsh 02/28/2016 02/29/2016 [facility] Bedded Outpatient [id number] Raimundo Marsh 03/14/2016 03/14/2016 [facility] Outpatient [id number] Raimundo Marsh 03/28/2016 03/29/2016 [facility] Emergency [id number] Rosaline Le 03/08/2017 03/08/2017 [facility] [id number] Claudio Khan 12/12/2018 12/13/2018 [facility] Outpatient Imaging [place] Out[facility] Diag Services [id number] Starla Don 01/08/2019 01/09/2019 [facility] Outpatient [id number] Abbe Osorioillo 01/23/2019 01/24/2019 [facility] [place] [facility] [id number] Abbe Gregorio 02/06/2019 02/07/2019 [facility] [place] [facility] Bedded Outpatient [id number] Abbe Osorioillo 03/12/2019 03/12/2019 [facility] Bedded Outpatient [id number] Abbe Osorioillo 05/01/2019 05/05/2019 [facility] Outpatient [id number] Abbe Osorioillo 05/08/2019 05/09/2019 [facility] Phone Message [id number] 12/03/2019 12/05/2019 [facility] Outpatient [id number] Abbe Gregorio 03/11/2020 03/12/2020 [facility] Outpatient [id number] SOB 6 [facility] CARRILLO MEJIA Active [facility] Outpatient [id number] DYSPNEA CARRILLO MEJIA Active [facility] Procedures Procedure Code Date Perfomer Comments Source Upper GI endoscopy [id number] 03/12/2019 [facility], [facility] Cataract surgery [id number] 01/13/2014 [facility], CASSANDRA Reeves, CASSANDRA Ardon, [facility] Total replacement of left knee joint [id number] 03/22/2011 [facility], CASSANDRA Reeves, CASSANDRA Ardon, [facility] Arthroscopy [id number] 07/02/2000 [facility], CASSANDRA Reeves, CASSANDRA Ardon, [facility] Repair of umbilical hernia [id number] 07/02/1996 [facility], CASSANDRA Reeves, CASSANDRA Ardon, [facility] Hysterectomy [id number] [facility], CASSANDRA Reeves, CASSANDRA Ardon,[facility] Abdomen endoscopy [id number] [facility], CASSANDRA Reeves, [facility] [place],[facility] Biopsy of liver [id number] [facility], CASSANDRA Reeves, CASSANDRA Joea,[facility] Colonoscopy [id number] [facility], CASSANDRA Reeves, CASSANDRA Joea,[facility] Cystoscopy [id number] [facility], CASSANDRA Reeves, CASSANDRA Joea,[facility] Assessment and Plan Assessment and Plan Date Source Extracted from:Title: Hospitalist [place] [facility] Note Author: Padmini Wright MD Date: 10/08/14 Assessment/Plan 1.Ankle cellulitis continue clinda added doxy ? component of gout possibly, will start colchicine 3.CKD (chronic kidney disease), stage III bmp in am Benign essential HTN controlled, continue home meds DM type 2, uncontrolled, with renal complications controlled, continue iss/fs Orders: colchicine, 1.2 mg, 2 tab, Route: PO, Drug form: TAB, ONCE, Dosing Weight 80, kg, Start date: 10/08/14 18:15:00, Stop date: 10/08/14 18:15:00 colchicine, 0.6 mg, 1 tab, Route: PO, Drug form: TAB, ONCE, Dosing Weight 80, kg, Start date: 10/08/14 19:15:00, Stop date: 10/08/14 19:15:00 doxycycline, 100 mg, Route: PO, Drug form: CAP, [id number], Dosing Weight 80, kg, Start date: 10/08/14 19:00:00, Duration: 30 day, Stop date: 11/07/14 7:00:00 Basic Metabolic Panel CDM [place] for Acute Gout Flare CDM [place] for Acute Gout Flare Complete Blood Count w/ Diff and Platelet Prophylaxis HSQ Disposition pending clinical improvement Extracted from:Title: [facility] IM H&P Author: Niko Walsh MD Date: 10/06/14 Assessment/Plan Pt is a 79 y/o F with PMH of HTN, CKD Stage III, DM Type II (last A1c 9s), NAFLD who presents with L ankle/foot swelling/pain. Came from clinic. Most likely cellulits but DVT and acute gout on differential. 1.Ankle cellulitis H/O MRSA per pt. - IV clinda - outlined area - transition to PO when improving 24-48 hrs - no crepitus or rapid changes; plain films pending - tylenol/tramadol prn pain -Uric acid level 2.GURU (acute kidney injury), mild Gentle hydration overnight, urine studies if not improving. 3.CKD (chronic kidney disease), stage III Likely 2/2 HTN, DM. GURU mgmt as above. - avoid nephrotoxins - renal dosing of meds Benign essential HTN Well controlled. Continue current regimen with holding parameters. Patch changed on . Ordered: cloNIDine, 1 patch, Route: TOP, Drug Form: ERFILM, Dosing Weight 80, kg, Q7D, Start date: 10/07/14 4:00:00, Duration: 30 day, Stop date: 11/04/14 4:00:00 hydrochlorothiazide-triamterene, 1 tab, Route: PO, Drug Form: TAB, Dosing Weight 80, kg, Daily, Start date: 10/07/14 9:00:00, Duration: 30 day, Stop date: 11/05/14 9:00:00 nebivolol, 20 mg, Route: PO, Drug form: TAB, Daily, Dosing Weight 80, kg, Start date: 10/07/14 9:00:00, Duration: 30 day, Stop date: 11/05/14 9:00:00 NIFEdipine, 60 mg, Route: PO, Drug form: ERTAB, Daily, Dosing Weight 80, kg, Start date: 10/07/14 9:00:00, Duration: 30 day, Stop date: 11/05/14 9:00:00 DM type 2, uncontrolled, with renal complications SSI, hold glyburide. Hypokalemia Continue daily supp and will give additional IV/PO tonight. 2/2 diuretics. Ordered: potassium chloride, 20 mEq, 1 tab, Route: PO, Drug form: ERTAB, Daily, Dosing Weight 80, kg, Start date: 10/07/14 9:00:00, Duration: 30 day, Stop date: 11/05/14 9:00:00 Hypomagnesemia Supp and recheck in AM. Ordered: magnesium sulfate, 2 gm, Route: IVPB, Drug form: INJ, Q2H, Dosing Weight 80, kg, Total dose = 4 gm, Start date: 10/07/14 4:00:00, Duration: 2 doses or times, Stop date: 10/07/14 6:00:00 Prophylaxis SQH Disposition 1-2 midnights pending improving cellulitis and negative U/S. Observation status. FULL CODE [facility] IM hospitalist team is primary. Please [phone] with any questions. 10/09/2014 [facility] Plan of Care Plan of Care Date Source [[facility]] URINALYSIS, COMPLETE 05/21/2013 [place][[facility]] CULTURE, URINE, ROUTINE 05/21/2013 Routine 05/21/2013 [facility] Social History Social History Date Source Social History TypeResponse Alcohol Never Smoking Status Never smoker; Exposure to Tobacco Smoke None; Cigarette Smoking Last 365 Days No; Reg Smoking Cessation Counseling No entered on: 03/11/20 03/11/2020 [facility] Social History TypeResponse Smoking Status Never smoker; Exposure to Tobacco Smoke None; Cigarette Smoking Last 365 Days No; Reg Smoking Cessation Counseling No entered on: 05/08/19 05/08/2019 [facility] Social History TypeResponse Smoking Status Never smoker; Exposure to Tobacco Smoke None; Cigarette Smoking Last 365 Days No; Reg Smoking Cessation Counseling No entered on: 01/23/19 01/23/2019 [facility] Social History TypeResponse Smoking Status Never smoker; Exposure to Tobacco Smoke None; Cigarette Smoking Last 365 Days No; Reg Smoking Cessation Counseling No entered on: 12/12/18 12/12/2018 [facility] Never A Smoker (Active) 05/21/2013 [facility] Family History No Data Provided for This Section Advance Directives Order Name Results Value Date Source Advance Directives Advance Dir ectives No Advance Directives available. 05/21/2013 [facility] Functional Status No Data Provided for This Section
--- OUTSIDE RECORDS SUMMARY | 2020-05-09 17:02 | XMS REPORT | Continuity of Care Document ---
Author Author [facility] t Organization [facility] Address 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 Name Role Phone NONSTAFF PCP Unavailable Abbe Gregorio Attphys Janie Don Attphys Franck Khan Attphys Mauricio Le Attphys Siena Marsh Attphys Physician, Associated Non Attphys Unavailable Eric Mack Attphys Fidencio Thomas Attphys Padmini Wright Attphys Tunde Perkins Attphys Montse Tsang Attphys Fidencio Thomas Admphys Johan Arriaza Jr Admphys Payers Payer Name Policy Type Policy Number Effective Date Expiration Date Ancelmo horowitz Medicare A & B [id number] 2000 00:00:00 Lisa NICOLE [facility] Miscellaneous Indemnity [id number] 2000 00:00:00 [facility] Problems Condition Name Condition Details Condition Category Status Onset Date Resolution Date Last Treatment Date Treating Clinician Comments Source F/U F/U Active 11/06/2019 [facility] Diagnosis Active 2019-11-06 00:00:00 2020-03-11 12:45:00 Edith Reeves FOLLOW UP FOLL OW UP Active 05/14/2019 [facility] Diagnosis Active 2019-05-14 00:00:00 2020-03-10 15:45:00 Edith Reeves BDDC GERD BDDC GERD Active 03/25/2019 [facility] Diagnosis Active 2019-03-25 00:00:00 2019-05-05 07:12:00 Edith Reeves GI F/U APPT GI F /U APPT Active 03/19/2019 [facility] Diagnosis Active 2019-03-19 00:00:00 2019-05-08 13:51:00 Edith Reeves BDDC ESOPHAGEAL DYSMOTILITY, BRONCHIEC BDDC ESOPHAGEAL DYSMOTILITY, BRONCHIEC Active 02/24/2019 [facility] Diagnosis Active 2019-02-24 00:00:00 2019-03-12 08:11:00 Edith Reeves K21.9 - GASTRO-ESOPHAGEAL REFLUX DISEA K21.9 - GASTRO- ESOPHAGEAL REFLUX DISEA Active 02/04/2019 [facility] Diagnosis Active 2019-02-04 00:01:00 2019-07-15 11:23:00 Jordyn Reeves R05 - COUGH R05 - COUGH Active 01/08/2019 [facility] Re[facility] Diagnosis Active 2019-01-08 00:01:00 2019-01-30 15:52:00 Edith Reeves NEW PT CONSULT - GERD NEW PT CONSULT - GERD Active 12/17/2018 [facility] Diagnosis Active 2018-12-17 00:00:00 2019-03-26 15:38:00 Edith Reeves CHEST PAIN, HIGH BP, PAIN UNDER SHOULDER CHEST PAIN, HIGH BP, PAIN UNDER SHOULDER Active 03/08/2017 [facility] Diagnosis Active 2017-03-08 00:00:00 2017-04-10 09:34:00 Edith Reeves BDDC-Z00.00 ENCOUNTER FOR GENERAL ADULT BDDC-Z00.00 ENCOUNTER FOR GENERAL ADULT Active 02/28/2016 [facility] Diagnosis Active 2016-02-28 00:00:00 2016-04-23 12:26:00 Edith Reeves R10.11 - RIGHT UPPER QUADRANT PAIN R10.11 - RIGHT UPPER QUADRANT PAIN Active 02/01/2016 [facility] Diagnosis Active 2016-02-01 00:01:00 2016-03-02 13:35:00 Edith Reeves RUQ PAIN - DR HASKINS PT FROM 2008 RUQ PAIN - DR HASKINS PT FROM 2008 Active 01/28/2016 [facility] Diagnosis Active 2016-01-28 00:00:00 2016-01-31 08:38:00 M sherman Reeves M79.89 - OTHER SPECIFIED SOFT TISSUE DI M79.89 - OTHER SPECIFIED SOFT TISSUE DI Active 12/17/2015 [facility] [place] Diagnosis Active 2015-12-17 00:01:00 2016-03-02 13:36:00 M sherman Reeves Uncontrolled type 2 diabetes mellitus Uncontrolled type 2 di abetes mellitus Disease Active 2015-08-17 00:00:00 Crow Sandoval CHEST PAIN CHES T PAIN Active 07/26/2015 [facility] Diagnosis Active 2015-07-26 15:42:00 2015-07-28 10:15:00 Edith Reeves CHEST PAIN/HYPERTENSION/HEADACHE CHEST PAIN/HYPERTENSION/HEADACHE Active 07/26/2015 [facility] Diagnosis Active 2015-07-26 00:00:00 2015-07-26 15:59:00 Edith Reeves L FOOT SWELLING CELLULITIS L F OOT SWELLING CELLULITIS Active 10/06/2014 [facility] Diagnosis Active 2014-10-06 00 :00:00 2014-10-27 07:42:00 Edith Reeves 783.21 - ABNORMAL LOSS O 783. 21 - ABNORMAL LOSS O Active 11/18/2013 [facility] Wrightann Diagnosis Active 2013-11-18 00:01:00 2014-02-20 16:39:00 [facility] [place] BDNY - HEARTBURN; DIARRHEA; CHRONIC DIAR BDDC - HEARTBURN; DIARRHEA; CHRONIC DIAR Active 11/17/2013 [facility] Diagnosis Active 2013-11-17 00:00:00 2013-11-17 15:26:00 Edith MILLAN - COLONOSCOPY EGD W/ BX B DDC - COLONOSCOPY EGD W/ BX Active 11/17/2013 [facility] Diagnosis Active 2013-11-17 00:00:00 2013-12-23 09:37:00 Edith Reeves UTERINE CANCER? UTER INE CANCER? Active 10/29/2013 [facility] Diagnosis Active 2013-10-29 00:00:00 2014-03-31 1 5:26:00 [facility] REFLUX REFL UX Active 10/09/2013 [facility] Diagnosis Active 2013-10-09 00:00:00 2013-11-17 13:15:00 [facility] [place] OTHER OTHE R Active 05/13/2013 [facility] Diagnosis Active 2013-05-13 00:00:00 2013-05-27 09:55:00 [facility] DYSPNEA DYSP VENKATESH Active 02/15/2012 [facility] Diagnosis Active 2012-02-15 00:00:00 2012-02-28 08:48:00 [facility] SOB 6 MINT[facility] WALK TEST SOB 6 MINT[facility] WALK TEST Active 01/19/2012 [facility] Active 2012-01-19 00:00 :00 2012-01-25 12:23:00 [facility] STROKE SYMPTOMS STRO KE SYMPTOMS Active 08/19/2011 [facility] Diagnosis Active 2011-08-19 18:00:00 2011-08-19 2 0:24:00 Edith Reeves Final: Veronique l: 10/11/2014 [facility] Problem 2014-10-11 18:26:48 [facility] Anxiety (finding) Anxi ety (finding) Resolved Problem 03/13/2020 [facility] C[facility]ANDRA Reeves, [facility] Problem Resolved 2020-03-13 22:41:54 [facility] [place] Arthritis (disorder) Arth ritis (disorder) Resolved Problem 03/13/2020 [facility] CASSANDRA Reeves, [facility] Problem Resolved 2020-03-13 22:41:54 [facility] [place] Kumar's palsy (disorder) Kumar 's palsy (disorder) Resolved Problem 03/13/2020 [facility], CASSANDRA Reeves, [facility] Problem Resolved 2020-03-13 22:41:54 [facility] chato Reeves Cellulitis (disorder) Cell ulitis (disorder) Resolved Problem 03/13/2020 [facility], CASSANDRA Reeves, [facility] Problem Resolved 2020-03-13 22:41:54 [facility] chato Reeves Diabetes mellitus type 2 (disorder) Diabetes mellitus type 2 (disorder) Resolved Problem 03/13/2020 [facility], CASSANDRA Reeves, [facility] [place], EDDC Problem Resolved 22:41:54 Edith Reeves Gout (disorder) Gout (disorder) Resolved Problem 03/13/2020 [facility], CASSANDRA Reeves, [facility] [place], EDDC Problem Resolved 2020-03-13 22:41:54 Lobo Reeves Infectious disorder of kidney (disorder) Infectious disorder of kidney (disorder) Resolved Problem 03/13/2020 [facility], CASSANDRA Reeves, [facility] [place], EDDC Problem Resolved 2020-03-13 22:41:54 Edith Reeves Cystocele Cyst ocele Active 05/21/2013 [facility] Problem Active 2013-05-21 15:01:57 Edith Reeves Hypertensive disorder, systemic arterial (disorder) Hypertensive disorder, systemic arterial (disorder) Active Problem 03/13/2020 [facility], CASSANDRA Reeves, [facility] [place], EDDC Problem Active 2020-03-13 22:41:54 Lobo Reeves Gastroesophageal reflux disease (disorder) Gastroesophageal reflux disease (disorder) Active Problem 03/13/2020 [facility], CASSANDRA Reeves, [facility] [place], EDDC Problem Active 2020-03-13 22:41:54 Edith Reeves Chronic kidney disease stage 4 (disorder) Chronic kidney disease stage 4 (disorder) Active Problem 03/13/2020 [facility], CASSANDRA Reeves, [facility] [place], EDDC Problem Active 2020-03-13 22:41:54 Edith Reeves Diabetes mellitus (disorder) D iabetes mellitus (disorder) Active Problem 03/13/2020 [facility], CASSANDRA Reeves, [facility] [place], EDDC Problem Active 2020-03-13 22:41:54 Edith Reeves Family history of malignant neoplasm of gastrointestin al tract (situation) Family history of malignant neoplasm of gastrointestinal tract (situation) Active Problem 03/13/2020 [facility], CASSANDRA Reeves, [facility] [place], EDDC Problem Active 2020-03-13 22:41:54 Edith Reeves Steatosis of liver (disorder) Steatosis of liver (disorder) Active Problem 03/13/2020 [facility], CASSANDRA Reeves, [facility] [place], EDDC Problem Active 2020-03-13 22:41:54 Edith Reeves Hyperlipidemia (disorder) Hype rlipidemia (disorder) Active Problem 03/13/2020 [facility], CASSANDRA Reeves, [facility] [place], ED[facility] Problem Active 2020-03-13 22:41:54 Virgil Reeves Obesity (disorder) Obes ity (disorder) Active Problem 03/13/2020 [facility], CASSANDRA Reeves, [facility] [place], EDDC Problem Active 2020-03-13 22:41:54 Edith Reeves Right upper quadrant pain (finding) Right upper quadrant pain (finding) Active Problem 03/13/2020 [facility], CASSANDRA Reeves, [facility] [place], EDDC Problem Active 2020-03-13 22:41:54 Edith Reeves SHORTNESS OF BREATH SHOR TNESS OF BREATH Active [facility] Active 2012-01-25 12:23:00 Nm charlie Reeves RESPIRATORY ABNORM NEC RESP IRATORY ABNORM NEC Active [facility] Diagnosis Active 2012-02-28 08:48:00 Edith Reeves ROUTINE MEDICAL EXAM ROUT INE MEDICAL EXAM Active [facility] Diagnosis Active 2013-11-17 13:15:00 Edith Reeves DIARRHEA DIAR MARILEE Active [facility] Diagnosis Active 2013-12-23 09:37:00 Edith Reeves HEARTBURN HEAR TBURN Active [facility] Diagnosis Active 2013-12-23 09:37:00 Edith Reeves CELLULITIS NOS CELL ULITIS NOS Active [facility] Diagnosis Active 2014-10-27 07:42:00 Nm charlie Reeves ENCNTR FOR GENERAL ADULT MEDICAL EXAM W/ ENCNTR FOR GENERAL ADULT MEDICAL EXAM W/ Active [facility] Diagnosis Act alisha 2020-03-11 12:45:00 Edith kohler Strain of muscle and tendon of front wall of thorax, i nitial encounter Strain of muscle and tendon of front wall of thorax, initial encounter 03/08/2017 03/11/2017 [facility] Problem 2017-03-08 05:00:00 2017-03-11 05:35:47 2017-03-11 05:35:47 Jordyn Reeves Allergies, Adverse Reactions, Alerts Allergy Name Allergy Type Status Severity Reaction(s) Onset Date Inacti ve Date Treating Clinician Comments Source Prednisone Propensity to adverse reactions to drug Active Other (See Comments) 2016-09-18 00:00:00 High blood pressure Adrienne angel Sandoval Penicillin Allergy to Substance Active Mild 2016-01-02 00:00:00 [facility] Hydrocodone Allergy to Substance Active Mild 2016-01-02 00:00:00 [facility] Acetaminophen Allergy to Substance Active Mild 2016-01-02 00:00: 00 [facility] Hydrocodone-Acetaminophen Propensity to adverse reactions to drug Act alisha 2015-08-17 00:00:00 Other reaction(s): Vicodin Adrienne angel Sandoval Iodine Propensity to adverse reactions to drug Active Other (See Comments) 2015-08-17 00:00:00 Crow morales Levofloxacin Propensity to adverse reactions to drug Active Other (See Comments) 2015-08-17 00:00:00 Levaquin Crow Sandoval Penicillins Propensity to adverse reactions to drug Active 2015-08-17 00:00:00 Other reaction(s): Penicillins Adrienne angel Sandoval penicillin penicillin Active 2001-07-05 06:00:00 [facility] Penicillins Penicillins Active [facility] Levaquin TABS Levaquin TABS Active [facility] Iodine SOLN Iodine SOLN Active [facility] Vicodin TABS Vicodin TABS Active [facility] Levaquin Levaquin Active [facility] iodine iodine Active [facility] ermann Vicodin Vicodin Active [facility] predniSONE predniSONE Active Nm charlie Reeves Family History Family Member Diagnosis Comments Start Date Stop Date Source Maternal grandmother Diabetes Hous isrrael Sandoval Maternal grandmother Heart disease Adrienne angel Sandoval Natural mother GI problems Crow Cobb ethodist Social History Social Habit Start Date Stop Date Quantity Comments Source Sex Assigned At [place] Sandoval Tobacco use and exposure 2017-02-07 00:00:00 2017-02-07 00:00:00 Cherise Sandoval Social History 2013-05-21 15:01:57 2013-05-21 15:01:57 Edith Reeves Smoking Status Start Date Stop Date Source Social History [facility] [place] Medications Ordered Medication Name Filled Medication Name Start Date Stop Da te Current Medication? Ordering Clinician Indication Dosage Frequency Signature (SIG) Comments Components Source atorvastatin 10 mg oral tablet 2020-03-11 17:48:00 Yes 10 mg = 1 tab, PO, Bedtime, # 30 tab, 0 Refill(s) Edith Reeves pantoprazole 40 mg oral enteric coated tablet 2019-12-03 19:08:0 0 Yes 40 mg = 1 tab, PO, BID, # 60 tab, 2 Refill(s), Pharmac y: [facility] Edith Reeves repaglinide 2 mg oral tablet 2019-05-08 20:01:00 Yes 2 mg = 1 tab, PO, TID-Before Meals, # 270 tab, 0 Refill(s) Edith Reeves 3 ML Insulin Glargine 100 UNT/ML Prefilled Syringe [Lantus] 2019-05-08 20:01:00 Yes 10 unit, SUB-Q, Daily, # 3 mL , 0 Refill(s) Edith Reeves IRBESARTAN 75 mg oral tablet 2019-01-23 19:00:00 Yes 0 Refill(s) [facility] irbesartan 150 mg oral tablet 2019-01-23 19:00:00 Yes 150 mg = 1 tab, PO, Daily, # 30 tab, 0 [facility] repaglinide 1 mg oral tablet 2018-12-12 20:28:00 Yes 1 mg = 1 tab, PO, TID-Before Meals, # 90 tab, 0 Refill(s) Edith Reeves spironolactone 25 mg oral tablet 2018-12-12 20:28:00 Yes 25 mg = 1 tab, PO, Daily, # 90 tab, 1 Refill(s) Nm charlie Leandro Vitamin B12 2018-12-12 20:28:00 Yes 0 Refill (s) [facility] tramadol hydrochloride 50 MG Oral Tablet 2018-12-12 20:28:00 Yes 50 mg = 1 tab, PO, Q8H, PRN Pain, # 60 tab, 0 Refill(s) [facility] [place] sitagliptin 50 MG Oral Tablet [Januvia] 2018-12-12 20:28:00 Yes 50 mg = 1 tab, PO, Daily, # 90 tab, 1 Refill(s) [facility] Metformin hydrochloride 500 MG Oral Tablet 2018-12-12 20:28:00 Yes 500 mg = 1 tab, PO, BID-Meals, # 60 tab, 0 Refill(s) [facility] Methocarbamol (Robaxin-750) 750 Mg Tablet Methocarbamo l (Robaxin-750) 750 Mg Tablet 2017-08-08 00:00:00 Yes Mindy Carpenter Md 1 Three Times A Day as needed for Pain [facility] Diazepam 2 MG Oral Tablet [Valium] 2017-03-08 14:20:00 Yes 2 mg = 1 tab, PO, Bedtime, PRN Pain Score 4-6, X 7 day, # 7 tab, 0 Refill(s) [facility] Coreg 2017-03-08 12:08:00 No 25 mg, Route: PO, ONCE, Dosing Weight 79.545, kg, Start date: 03/08/17 7:08:00 CDT, Stop date: 03/08/17 7:08:00 CDT [facility] valsartan 2017-03-08 12:07:00 No 160 mg, Route: PO, Drug form: TAB, ONCE, Dosing Weight 79.545, kg, Start date: 03/08/17 7:07:00 CDT, Stop date: 03/08/17 7:07:00 CDT, .. [facility] Carlos n Nitroglycerin 0.02 MG/MG Topical Ointment 2017-03-08 11:05:00 No 1 inch, Route: TOP, Drug Form: OINT, Dosing Weight 79.545, kg, ONCE, STAT, Start date: 03/08/17 6:05:00 CDT, Stop date: 03/08/17 6:05:00 CDT [facility] Acetaminophen 2017-03-08 11:05:00 No 650 mg, Route: PO, Drug form: TAB, ONCE, Dosing Weight 79.545, kg, Priority: STAT, Start date: 03/08/17 6:05:00 CDT, Stop date: 03/08/17 6:05:00 CDT [facility] Aspirin 2017-03-08 09:35:00 No 325 mg, Route: PO, Drug form: TAB, ONCE, Dosing Weight 79.545, kg, Priority: STAT, Start date: 03/08/17 4:35:00 CDT, Stop date: 03/08/17 4:35:00 [facility]T [facility] [place] Nitroglycerin 2017-03-08 09:35:00 No 0.4 mg, Route: SL, ONCE, Dosing Weight 79.545, kg, Priority: STAT, Start date: 03/08/17 4:35:00 CDT, Stop date: 03/08/17 4:35:00 CDT [facility] aspirin (ECOTRIN) 81 MG enteric coated tablet 2017-02-07 10:04:5 7 Yes 81mg QD Take 81 mg by mouth daily. Adrienne Sandoval atorvastatin (LIPITOR) 10 MG tablet 2016-12-04 00:00:00 Yes Take 1 tablet by mouth every day Crow eaton glimepiride (AMARYL) 4 MG tablet 2016-12-04 00:00:00 Yes Take 1 tablet by mouth two times daily Crow Sandoval LANTUS SOLOSTAR 100 unit/mL injection (pen) 2016-11-29 00:00:00 Yes Inject subcutaneously 10 units nightly Crow Sandoval pen needle, diabetic (BD ULTRA-FINE FABY PEN NEEDLES) 32 gau ge x 5/32" needle 2016-09-18 00:00:00 Yes Use once daily Crow Sandoval lancets 30 gauge misc 2016-05-03 00:00:00 Yes For ADVOCATE GLUCOMETER device BID testing [facility] bladeodi GoLYTELY oral powder for reconstitution 2016-02-28 17:33:27 Yes See Instructions, Take as directed by physician., # 1 ea, 0 Refill(s), Pharmacy: [facility] [address] [place] [address] pantoprazole 40 mg oral enteric coated tablet 2016-01-31 15:45:4 3 Yes 40 mg = 1 tab, PO, Daily, # 30 tab, 11 R efill(s), Pharmacy: [facility] [address] [place] [address] Potassium Chloride 8 MEQ Extended Release Tablet 2016-01-31 13:59:00 Yes 8 mEq = 1 tab, PO, TID, # 30 tab, 0 Refill(s) [facility] isosorbide dinitrate 30 mg oral tablet 2016-01-31 13:59:00 Yes 30 mg = 1 tab, PO, QID, # 120 tab, 0 Refill(s) [facility] glimepiride 4 mg oral tablet 2016-01-31 13:59:00 Yes 4 mg = 1 tab, PO, Breakfast, # 30 tab, 0 Refill(s) Brian michaeltenzin Wrightann isosorbide mononitrate (IMDUR) 30 MG 24 hr tablet 2015-09-02 00:00:00 Yes TK 1 T PO D Crow eaton allopurinol (ZYLOPRIM) 100 MG tablet 2015-08-30 00:00:00 Yes Crow Sandoval valsartan (DIOVAN) 160 MG tablet 2015-08-30 00:00:00 Yes Crow Sandoval KLOR-CON 8 8 mEq CR tablet 2015-08-30 00:00:00 Yes Crow Sandoval pantoprazole (PROTONIX) 40 MG EC tablet 2015-08-24 00:00:00 Ye s Crow Sandoval remove patch 2015-07-28 03:00:00 No 1 patch, Route: TOP, Daily, Drug form: ERFILM, Start date: 07/27/15 21:00:00, Duration: 30 day, Stop date: 08/25/15 21:00:00 Edith Wrightann Clonidine Hydrochloride 0.1 MG Oral Tablet 2015-07-27 22:46:00 Yes 0.1 mg = 1 tab, PO, TID, 0 Refill(s) Brian Reeves Dextrose 50% Syringe 2015-07-27 22:30:00 No 25 gm, 50 mL, Route: IVP, Drug Form: INJ, Dosing Weight 80.636, kg, PRN, PRN Blood Glucose Results, Start date: 07/27/15 16:30:00, Duration: 30 day, Stop date: 08/26/15 16:29:00 Edith Wrightann Insulin, Aspart, Human 2015-07-27 22:30:00 No Notes: Roll in palms of hands gently; Do not shake vigorously. (Same as: NovoLOG) "single patient use only" WASTE: F/P - Black; E - Municipal Trash Bin Stable for 28 days at room temperature. Expires in days from Date Edith Reeves Glucagon 2015-07-27 22:30:00 No 1 mg, Route: IM, Drug form: PDR/INJ, PRN, Dosing Weight 80.636, kg, PRN Blood Glucose Results, Start date: 07/27/15 16:30:00, Duration: 30 day, Stop date: 08/26/15 16:29:00 [facility] atorvastatin 10 mg oral tablet 2015-07-27 18:03:00 Yes 10 mg = 1 tab, PO, Bedtime Edith Reeves allopurinol 100 mg oral tablet 2015-07-27 18:03:00 Yes 100 mg = 1 tab, PO, BID Edith Reeves valsartan 160 mg oral tablet 2015-07-27 18:03:00 Yes 160 mg = 1 tab, PO, BID [facility] carvedilol 25 mg oral tablet 2015-07-27 18:03:00 Yes 25 mg = 1 tab, PO, BID [facility] Vitamin D3 2015-07-27 15:00:00 No Notes: Sa me as: Vitamin D3 [facility] Aspirin 2015-07-27 15:00:00 No Notes: Do not crush or chew. (Same As: Ecotrin) Edith Wrightann Lasix 2015-07-27 15:00:00 No Notes: (Same as: Lasix) May cause GI upset. Give with food or milk. [facility] potassium chloride 2015-07-27 15:00:00 No Notes: (Same as: K-Dur 10) "Do Not Crush" With food and full glass of water [facility] Lidocaine Hydrochloride 0.05 MG/MG Transdermal Patch [Lidode rm] 2015-07-27 15:00:00 No Notes: (Same as: Lidoderm) [facility] Protonix 2015-07-27 13:30:00 No Notes: Tablet should not be chewed or crushed. (Same as: Protonix) [facility] heparin sodium, porcine 2500 UNT/ML Injectable Solution 2015-07-27 06:00:00 No Notes: porcine heparin [facility] atorvastatin 2015-07-27 03:00:00 No Notes: (Same As: Lipitor) [facility] carvedilol 2015-07-27 03:00:00 No Notes: Give with food. (Same As: Coreg) [facility] potassium chloride 2015-07-27 02:56:00 No Notes: (Same as: K-Dur 20) "Do Not Crush" With food and full glass of water [facility] valsartan 2015-07-26 23:00:00 No Notes: Mahi Kemp Edith Reeves Glyburide 2015-07-26 23:00:00 No Notes: (Same as: Micronase, Diabeta) Take with meals. Edith osorio Magnesium Sulfate 2015-07-26 23:00:00 No Notes: WASTE: F/P - Sink; E - Municipal Trash Bin Edith Reeves Allopurinol 2015-07-26 23:00:00 No Notes: ( Same as: Zyloprim) Edith Reeves Clonidine Hydrochloride 0.1 MG Oral Tablet 2015-07-26 23:00:00 No Notes: (Same As: Catapres) Edith osorio Furosemide 2015-07-26 22:38:00 No Notes: (Same as: Lasix) May cause GI upset. Give with food or milk. Virgil Reeves Magnesium Sulfate 2015-07-26 21:53:00 No Notes: (Same as: MgSO4) WASTE: F/P - Sink; E - Municipal Trash Bin MEDICATION WASTE Product Size: 1000 mg Product Wasted: ___ mg M sherman Reeves Aspirin 2015-07-26 20:33:00 No Notes: Take with food. [facility] carvedilol (COREG) 25 MG tablet 2015-06-23 00:00:00 Yes Crow Sandoval clindamycin 300 mg oral capsule 2014-10-09 15:47:00 Yes 300 mg = 1 cap, PO, Q6H, # 20 cap, 0 Refill(s) Virgilpriyank reyezsudheer Leandro Colchicine 0.6 MG Oral Tablet 2014-10-09 15:47:00 Yes 0.6 mg, PO, Daily, # 6 tab, 0 Refill(s) Edith kohler Doxycycline 100 MG Oral Capsule 2014-10-09 15:47:00 Yes 100 mg = 1 tab, PO, [id number], # 14 tab, 0 Refill(s) [facility] Doxycycline 100 MG Oral Capsule 2014-10-09 00:30:00 No Notes: NO MILK/ANTACIDS/IRON Take 1 hour before or 2 hours after dairy products Edith Wrightann Colchicine 2014-10-09 00:15:00 No 0.6 mg, 1 tab, Route: PO, Drug form: TAB, ONCE, Dosing Weight 80, kg, Start date: 10/08/14 19:15:00, Stop date: 10/08/14 19:15:00 [facility] Colchicine 2014-10-08 23:15:00 No 1.2 mg, 2 tab, Route: PO, Drug form: TAB, ONCE, Dosing Weight 80, kg, Start date: 10/08/14 18:15:00, Stop date: 10/08/14 18:15:00 [facility] Docusate 2014-10-07 14:00:00 No Notes: ([facility] e as: Colace) [facility] Potassium Chloride 20 MEQ Extended Release Tablet 2014-10-07 14:00:00 No Notes: (Same as: K-Dur 20) With food and full g lass of water [facility] pantoprazole 2014-10-07 14:00:00 No Notes: (Same as: Protonix) [facility] Nifedical XL 2014-10-07 14:00:00 No Notes: (Same as: Adalat CC, Procardia XL) Give on empty stomach. Take 1 hour before or 2 hours after meal; "Avoid grapefruit and grapefruit juice". Do not crush [facility] Bystolic 2014-10-07 14:00:00 No Notes: (vinny e as: Bystolic) [facility] Hydrochlorothiazide 25 MG / Triamterene 37.5 MG Oral Tablet 2014-10-07 14:00:00 No Notes: (tr iamterene-hydrochlorothiazide 37.5-25 mg TAB) (Same As: Maxzide-25) [facility] Aspirin 2014-10-07 14:00:00 No Notes: Do not crush or chew. (Same As: Ecotrin) [facility] Miralax 2014-10-07 14:00:00 No Notes: Dissolve in 8 oz of water or juice. (Same as: Miralax) [facility] Magnesium Sulfate 2014-10-07 09:00:00 No 2 gm, 50 mL, Route: IVPB, Drug form: INJ, Q2H, Dosing Weight 80, kg, Total dose = 4 gm, Start date: 10/07/14 4:00:00, Duration: 2 doses or times, Stop date: 10/07/14 6:00:00 [facility] 168 HR Clonidine 0.0125 MG/HR Transdermal Patch 2014-10-07 09:00 :00 No Notes: Patch delivers 0.3 mg /24 hours; Patch is applied weekly. [id number]. [facility] tramadol hydrochloride 50 MG Oral Tablet 2014-10-07 08:56:00 No Notes: . (Same As: Ultram) [facility] Hydrochlorothiazide 25 MG / Triamterene 37.5 MG Oral Tablet 2014-10-07 08:43:00 Yes 1 tab, PO, Daily, # 30 tab, 0 Refill(s) [facility] 168 HR Clonidine 0.0125 MG/HR Transdermal Patch 2014-10-07 08:43 :00 Yes 1 patch, TOP, Q7D, # 12 patch, 0 Refill(s) [facility] NS 1,000 mL 2014-10-07 06:03:00 No 1,000 mL, Rate: 75 ml/hr, Infuse over: 13.3 hr, Route: IV, Dosing Weight 80 kg, Total Volume: 1,000, Start date: 10/07/14 1:03:00, Duration: 30 day, Stop date: 11/06/14 1:02:00 [facility] potassium chloride 2014-10-07 06:02:00 No Notes: (Same as: KCL) Infuse no faster than 10 mEq/hr if given peripherally. [facility] potassium chloride 2014-10-07 06:01:00 No Notes: (Same as: K-Dur 20) "Do Not Crush" With food and full glass of water [facility] Clindamycin 2014-10-07 06:00:00 No Notes: (clindamycin 150 mg/1 ml (600 mg/4 ml VL) INJ) (Same As: Cleocin) [facility] heparin 2014-10-07 05:00:00 No Notes: porci ne heparin [facility] Insulin, Aspart, Human 2014-10-07 03:25:00 No Notes: Roll in palms of hands gently; Do not shake vigorously. (Same as: NovoLOG) "single patient use only" Stable for 28 days at room temperature. Expires in days from Date [facility] Glucagon 2014-10-07 03:25:00 No 1 mg, Route: IM, Drug form: PDR/INJ, PRN, Dosing Weight 80, kg, PRN Blood Glucose Results, Start date: 10/06/14 22:25:00, Duration: 30 day, Stop date: 11/05/14 22:24:00 Edith Reeves Dextrose 50% Syringe 2014-10-07 03:25:00 No 25 gm, 50 mL, Route: IVP, Drug Form: INJ, Dosing Weight 80, kg, PRN, PRN Blood Glucose Results, Start date: 10/06/14 22:25:00, Duration: 30 day, Stop date: 11/05/14 22:24:00 [facility] [place] Ondansetron 2014-10-07 03:24:00 No Notes: (Same as: Khang) MEDICATION WASTE Product Size: 4 mg Product Wasted: ___ mg [facility] [place] Acetaminophen 325 MG / Hydrocodone Bitartrate 5 MG Oral Tabl et 2014-10-07 03:24:00 No Notes: (Sa me as: [place] 325/5) Do not exceed 4gm/day of acetaminophen. [facility] Acetaminophen 2014-10-07 03:24:00 No Notes: Do not exceed 4 gm/day. (Same as: Tylenol) [facility] 24 HR Nifedipine 60 MG Extended Release Tablet [Nifedical] 2014-10-07 03:20:00 Yes 60 mg = 1 tab, PO, Daily, 0 Ref ill(s) [facility] glyBURIDE 2.5 mg oral tablet 2014-10-07 03:20:00 Yes 2.5 mg = 1 tab, PO, BID, 0 Refill(s) [facility] Potassium Chloride 20 MEQ Extended Release Tablet 2014-10-07 03:20:00 Yes 20 mEq = 1 tab, PO, Daily, 0 Refill(s) [facility] Furosemide 40 MG Oral Tablet 2014-10-07 03:20:00 Yes 40 mg = 1 tab, PO, Daily, 0 Refill(s) [facility] POLYETHYLENE GLYCOL 3350 60 MG/ML / Pota ssium Chloride 0.01 MEQ/ML / Sodium Bicarbonate 0.02 MEQ/ML / Sodium Chloride 0.025 MEQ/ML / sodium sulfate 0.04 MEQ/ML Oral Solution [Golytely] 2013-11-17 19:57:00 Yes 240 ml, PO, Q10Min, # 1 ea, 0 Refill(s), Pharmacy: [facility] [id number] [facility] Vitamin D3 2013-11-17 18:16:00 Yes 0 Refill( s) Edith Reeves losartan 100 mg oral tablet 2013-11-17 18:16:00 Yes 0 Refill(s) Edith Reeves Biotin 2013-11-17 18:16:00 Yes 0 Refill(s) Edith Reeves pantoprazole 40 mg oral enteric coated tablet 2013-11-17 18:16:0 0 Yes 0 Refill(s) Edith Reeves Aspirin Low Dose 81 mg oral tablet 2013-11-17 18:16:00 Yes 0 Refill(s) Edith Reeves Clonidine Hydrochloride 0.3 MG Oral Tablet 2013-11-17 18:16:00 Yes 0 Refill(s) Edith Reeves Triamterene 2013-11-17 18:16:00 Yes 0 Refill (s) Edith Reeves nebivolol 20 MG Oral Tablet [Bystolic] 2013-11-17 18:16:00 Yes 0 Refill(s) Edith Reeves Bystolic 5 MG Oral Tablet 2013-05-21 15:01:57 Yes (Active) Edith Reeves Triamterene-HCTZ 37.5-25 MG Oral Tablet 2013-05-21 15:01:57 Yes (Active) Edith Reeves CloNIDine HCl 0.3 MG Oral Tablet 2013-05-21 15:01:57 Yes (Active) Edith Reeves Losartan Potassium 100 MG Oral Tablet 2013-05-21 15:01:57 Y es (Active) Edith Reeves Aspirin 81 MG Oral Tablet 2013-05-21 15:01:57 Yes (Active) Edith Reeves Multivital Oral Tablet 2013-05-21 15:01:57 Yes (Active) Edith Reeves Biotin 5000 CAPS 2013-05-21 15:01:57 Yes (A ctive) Edith Reeves Pantoprazole Sodium 40 MG Oral Tablet Delayed Release 2013-05-21 15:01:57 Yes (Active) Edith Klein sanna Estrace 0.1 MG/GM Vaginal Cream 2013-05-21 06:00:00 Yes ; Start Date: 05/21/2013 (Active) Edith Wrightchloe isidro Murine Tears Plus ophthalmic drops 2011-08-20 04:44:48 Yes Seema Fermin 1 drp, LEFT EYE, TID, 1 btl, Substitute Allowed Edith Reeves predniSONE 50 mg oral tablet 2011-08-20 04:44:16 Yes Mar y Yohana Fermin 50 mg, 1 tab, PO, Daily, 5 tab, Substitution Allowed, TAB [facility] acyclovir 400 mg oral tablet 2011-08-20 04:43:22 Yes Anita Quinterol Fermin 400 mg, 1 tab, PO, 5X Day, 35 tab, Substitution Allowed, TAB [facility] proparacaine ophthalmic 0.5% solution 2011-08-20 04:24:00 No Seema Yohana Fermin Donte drp, Route: POLLY TH EYES, ONCE, Drug form: SOLN, Priority: STAT, Start date: 08/19/11 22:24:00, Stop date: 08/19/11 22:24:00 [facility] fluorescein ophthalmic 1 mg test 2011-08-20 04:23:00 No Seema Fermin Donte strip, Route: BOTH EYES, O NCE, Drug form: STRIP, Start date: 08/19/11 22:23:00, Stop date: 08/19/11 22:23:00 M sherman [place] Allopurinol 100 Mg Tablet Allopurinol 100 Mg Tablet Yes [address] [facility] Aspirin (Aspirin Ec) 81 Mg Tablet. Aspirin (Aspirin Ec) 81 Mg Tab let. Yes 81 Daily [facility] Atorvastatin Calcium 10 Mg Tablet Atorvastatin Calcium 10 Mg Tablet Yes 10 Today At 9:00PM [facility] Carvedilol (Coreg) 12.5 Mg Tab Carvedilol (Coreg) 12.5 Mg Tab Yes [address] [facility] Furosemide (Lasix) 40 Mg Tablet Furosemide (Lasix) 40 Mg Tablet Yes 40 Daily [facility] Glimepiride 2 Mg Tablet Glimepiride 2 Mg Tablet Yes 4 [facility] Isosorbide Dinitrate 30 Mg Tablet Isosorbide Dinitrate 30 Mg Tablet Yes 1 Romi [facility] Pantoprazole Sodium (Protonix) 40 Mg Tablet. Pantopr azole Sodium (Protonix) 40 Mg Tablet. Yes 40 Daily [facility] Sitagliptin Phosphate (Januvia) 100 Mg Tablet Sitaglip tin Phosphate (Januvia) 100 Mg Tablet Yes 50 Daily [facility] Spironolactone 25 Mg Tablet Spironolactone 25 Mg Tablet Yes [address] A Day [facility] Valsartan (Diovan) 160 Mg Tab Valsartan (Diovan) 160 Mg Tab Yes [address] A [address] [facility] Carvedilol 12.5 Mg Tablet, 25 Mg Oral Carvedilol 12.5 Mg Tablet, 25 Mg Oral 2017-08-08 00:00:00 No 25 Twice A Day [facility] Furosemide (Lasix) 20 Mg Tablet, 20 Mg Oral Furosemide (Lasix) 20 Mg Tablet, 20 Mg Oral 2017-08-08 00:00:00 No 20 Daily [facility] Glimepiride 2 Mg Tablet, 2 Mg Oral Glimepiride 2 Mg Tablet, 2 Mg Oral 2017-08-08 00:00:00 No 2 Use As Directed [facility] Potassium Chloride (Klor-Con 8) 8 Meq Tablet.er, 1 Tab Oral Potassium Chloride (Klor-Con 8) 8 Meq Tablet.er, 1 Tab Oral 2017-08-08 00:00:00 No 1 Daily [facility] Biotin , 5000 Oral Biotin , 5000 Oral 2016-01-02 00:00:00 No [address] [facility] Bystolic , 20 Mg Oral Bystolic , 20 Mg Oral 2016-01-02 00:00:00 No [address] [facility] Clonidine Hcl 0.3 Mg Tablet, 0.3 Mg Transderm Clonidin e Hcl 0.3 Mg Tablet, 0.3 Mg Transderm 2016-01-02 00:00:00 No .3 Weekly [facility] Nifedical Xl , 60 Mg Oral Nifedical Xl , 60 Mg Oral 00:00:00 No 60 Daily [facility] Pantoprazole , 40 Mg Oral Pantoprazole , 40 Mg Oral 00:00:00 No 40 Daily [facility] Triamterene/Hctz (Triamterene-Hctz 37.5-25 Mg Tb) 1 Ea Tab, 1 Each Oral Triamterene/Hctz (Triamterene-Hctz 37.5-25 Mg Tb) 1 Ea Tab, 1 Each Oral 2016-01-02 00:00:00 No 1 Daily [facility] Vitamin D3 , Oral Vitamin D3 , Oral 2016-01-02 00:00:00 No Daily [facility] Vital Signs Vital Name Observation Time Observation Value Comments Source Systolic (mm Hg) 2020-03-11 17:42:00 [facility] Diastolic (mm Hg) 2020-03-11 17:42:00 [facility] [place] Heart Rate 2020-03-11 17:42:00 [facility] Height 2020-03-11 17:42:00 162.56 cm [facility] [place] Weight 2020-03-11 17:42:00 [facility] BMI Calculated 2020-03-11 17:42:00 [facility] [place] Systolic (mm Hg) 2019-05-08 19:56:00 [facility] [place] Diastolic (mm Hg) 2019-05-08 19:56:00 [facility] [place] Heart Rate 2019-05-08 19:56:00 [facility] [place] Height 2019-05-08 19:56:00 160.02 cm [facility] Weight 2019-05-08 19:56:00 [facility] [place] BMI Calculated 2019-05-08 19:56:00 [facility] BMI Calculated 2019-01-23 18:56:00 [facility] Weight 2019-01-23 18:56:00 [facility] [place] Height 2019-01-23 18:56:00 157.48 cm [facility] [place] Systolic (mm Hg) 2019-01-23 18:56:00 [facility] [place] Diastolic (mm Hg) 2019-01-23 18:56:00 [facility] [place] Heart Rate 2019-01-23 18:56:00 [facility] [place] BMI Calculated 2018-12-12 20:21:00 [facility] Weight 2018-12-12 20:21:00 [facility] [place] Height 2018-12-12 20:21:00 162.56 cm [facility] [place] Systolic (mm Hg) 2018-12-12 20:21:00 [facility] [place] Diastolic (mm Hg) 2018-12-12 20:21:00 [facility] [place] Heart Rate 2018-12-12 20:21:00 [facility] Respitory Rate 2018-12-12 20:21:00 [facility] [place] Respitory Rate 2017-03-08 14:40:00 [facility] Systolic (mm Hg) 2017-03-08 14:40:00 [facility] [place] Diastolic (mm Hg) 2017-03-08 14:40:00 [facility] Respitory Rate 2017-03-08 12:52:00 [facility] Systolic (mm Hg) 2017-03-08 12:52:00 [facility] [place] Diastolic (mm Hg) 2017-03-08 12:52:00 [facility] [place] Systolic (mm Hg) 2017-03-08 11:45:00 [facility] Diastolic (mm Hg) 2017-03-08 11:45:00 [facility] Respitory Rate 2017-03-08 11:45:00 [facility] [place] Weight 2017-03-08 08:38:00 [facility] [place] Height 2017-03-08 08:38:00 162.56 cm [facility] BMI Calculated 2017-03-08 08:38:00 [facility] [place] Temperature Oral (F) 2017-03-08 08:38:00 97.8 F [facility] Heart Rate 2017-03-08 08:38:00 [facility] Weight 2016-03-28 17:42:00 [facility] [place] BMI Calculated 2016-03-28 17:42:00 [facility] [place] Heart Rate 2016-03-28 17:42:00 [facility] Temperature Oral (F) 2016-03-28 17:42:00 96.0 F [facility] [place] Height 2016-03-28 17:42:00 162.56 cm [facility] [place] Systolic (mm Hg) 2016-03-28 17:42:00 [facility] Diastolic (mm Hg) 2016-03-28 17:42:00 [facility] [place] Height 2016-02-28 15:35:00 162.56 cm [facility] [place] BMI Calculated 2016-02-28 15:35:00 [facility] Weight 2016-02-28 15:35:00 [facility] Heart Rate 2016-02-28 15:35:00 [facility] [place] Systolic (mm Hg) 2016-02-28 15:35:00 [facility] Diastolic (mm Hg) 2016-02-28 15:35:00 [facility] Weight 2016-01-31 13:49:00 [facility] [place] BMI Calculated 2016-01-31 13:49:00 [facility] [place] Height 2016-01-31 13:49:00 162.56 cm [facility] Heart Rate 2016-01-31 13:49:00 [facility] [place] Systolic (mm Hg) 2016-01-31 13:49:00 [facility] Diastolic (mm Hg) 2016-01-31 13:49:00 [facility] Systolic (mm Hg) 2015-07-27 21:39:00 [facility] [place] Diastolic (mm Hg) 2015-07-27 21:39:00 [facility] Respitory Rate 2015-07-27 21:39:00 [facility] Heart Rate 2015-07-27 21:39:00 [facility] [place] Temperature Oral (F) 2015-07-27 21:39:00 97.8 F [facility] Temperature Oral (F) 2015-07-27 17:44:00 97.8 F [facility] Heart Rate 2015-07-27 17:44:00 [facility] Respitory Rate 2015-07-27 17:44:00 [facility] Systolic (mm Hg) 2015-07-27 17:44:00 [facility] Diastolic (mm Hg) 2015-07-27 17:44:00 [facility] Systolic (mm Hg) 2015-07-27 13:38:00 [facility] [place] Diastolic (mm Hg) 2015-07-27 13:38:00 [facility] [place] Respitory Rate 2015-07-27 13:38:00 [facility] [place] Heart Rate 2015-07-27 13:38:00 [facility] Temperature Oral (F) 2015-07-27 13:38:00 98.0 F [facility] [place] Weight 2015-07-26 23:35:00 [facility] BMI Calculated 2015-07-26 23:35:00 [facility] [place] Height 2015-07-26 23:35:00 162.56 cm [facility] [place] Height 2015-07-26 17:49:00 162.56 cm [facility] BMI Calculated 2015-07-26 17:49:00 [facility] Weight 2015-07-26 17:49:00 [facility] [place] Respitory Rate 2014-10-09 13:00:00 [facility] [place] Heart Rate 2014-10-09 13:00:00 [facility] Temperature Oral (F) 2014-10-09 13:00:00 98.0 F [facility] [place] Systolic (mm Hg) 2014-10-09 13:00:00 [facility] Diastolic (mm Hg) 2014-10-09 13:00:00 [facility] [place] Heart Rate 2014-10-09 09:41:00 [facility] [place] Respitory Rate 2014-10-09 09:41:00 [facility] [place] Temperature Oral (F) 2014-10-09 09:41:00 99.1 F [facility] Systolic (mm Hg) 2014-10-09 09:41:00 [facility] [place] Diastolic (mm Hg) 2014-10-09 09:41:00 [facility] [place] Systolic (mm Hg) 2014-10-09 02:19:00 [facility] [place] Diastolic (mm Hg) 2014-10-09 02:19:00 [facility] Temperature Oral (F) 2014-10-09 02:19:00 98.9 F [facility] Respitory Rate 2014-10-09 02:19:00 [facility] [place] Heart Rate 2014-10-09 02:19:00 [facility] [place] BMI Calculated 2014-10-07 00:52:00 [facility] [place] Height 2014-10-07 00:52:00 162.56 cm [facility] [place] Weight 2014-10-07 00:52:00 [facility] BMI Calculated 2013-11-17 18:18:00 [facility] Weight 2013-11-17 18:18:00 [facility] [place] Height 2013-11-17 18:18:00 162.56 cm [facility] [place] Temperature Oral (F) 2013-05-14 03:09:00 97.4 F [facility] [place] Heart Rate 2013-05-14 03:09:00 [facility] Respitory Rate 2013-05-14 03:09:00 [facility] [place] Systolic (mm Hg) 2013-05-14 03:09:00 [facility] Diastolic (mm Hg) 2013-05-14 03:09:00 [facility] [place] Heart Rate 2013-05-14 00:38:00 [facility] Respitory Rate 2013-05-14 00:38:00 [facility] [place] Temperature Oral (F) 2013-05-14 00:38:00 98.1 F [facility] Systolic (mm Hg) 2013-05-14 00:38:00 [facility] Diastolic (mm Hg) 2013-05-14 00:38:00 [facility] [place] Weight 2013-05-13 20:10:00 [facility] [place] Height 2013-05-13 20:10:00 162.56 cm [facility] Temperature Oral (F) 2013-05-13 20:10:00 99.0 F [facility] [place] Systolic (mm Hg) 2013-05-13 20:10:00 [facility] Respitory Rate 2013-05-13 20:10:00 [facility] Heart Rate 2013-05-13 20:10:00 [facility] [place] Diastolic (mm Hg) 2013-05-13 20:10:00 [facility] [place] Height 2012-02-28 20:30:00 162.56 cm [facility] [place] Weight 2012-02-28 20:30:00 [facility] [place] Weight 2012-01-25 22:03:00 [facility] [place] Height 2012-01-25 22:03:00 167.64 cm [facility] Weight 2011-08-20 01:02:00 [facility] Height 2011-08-20 01:02:00 165.10 cm [facility] [place] Procedures Procedure Date / Time Performed Performing Clinician [facility] e Upper GI endoscopy 2019-03-12 05:00:00 [facility] Cataract surgery 2014-01-13 05:00:00 [facility] rmann Total replacement of left knee joint 2011-03-22 05:00:00 [facility] Arthroscopy 2000-07-02 00:00:00 [facility] kohler Repair of umbilical hernia 1996-07-02 00:00:00 [facility] [place] Hysterectomy [facility] Bi[facility] Colonoscopy [facility] Cystoscopy [facility] Plan of Care Planned Activity Planned Date Details Comments Source Future Scheduled Test 2020-01-31 00:00:00 INFLUENZA VACCINE [code = INFLUENZA VACCINE] [facility] Future Scheduled Test 2013-05-21 15:01:57 Plan of Care [code = 1877 6-5] [facility] Future Scheduled Test 2000 00:00:00 65+ PNEUMOCOCCAL V ACCINE (1 of 1 - PPSV23) [code = 65+ PNEUMOCOCCAL VACCINE (1 of 1 - PPSV23)] [facility] Future Scheduled Test 1985 00:00:00 SHINGLES VACCINES (#1) [code = SHINGLES VACCINES (#1)] [facility] Encounters Start Date/Time End Date/Time Encounter Type Admission Type Attendi [facility] Care Department Encounter ID Source 2019-11-06 12:44:08 Outpatient [id number] 2020-03-11 12:40:00 2020-03-11 23:59:00 Outpatient Abbe Gregorio [facility] [id number] 2020-03-11 12:40:00 2020-03-11 12:40:00 Outpatient [id number] 2019-12-03 14:07:45 2019-12-04 23:59:59 Outpatient [id number] 2019-05-08 13:51:00 2019-05-08 23:59:00 Outpatient Abbe Gregorio [facility] [id number] 2019-05-08 13:51:00 2019-05-08 13:51:00 Outpatient [id number] 2019-05-01 06:58:00 2019-05-05 15:00:00 Outpatient Abbe Gregorio [facility] [id number] 2019-05-01 06:58:00 2019-05-01 06:58:00 Outpatient [id number] 2019-03-12 08:11:00 2019-03-12 14:00:00 Outpatient Abbe Gregorio [facility] [id number] 2019-03-12 08:11:00 2019-03-12 08:11:00 Outpatient [id number] 2019-02-06 09:25:00 2019-02-06 23:59:00 Outpatient Abbe Gregorio [facility] [id number] 2019-01-23 13:51:00 2019-01-23 23:59:00 [facility] [id number] 2019-01-23 13:51:00 2019-01-23 13:51:00 Outpatient [id number] 2019-01-08 14:51:00 2019-01-08 23:59:00 Outpatient Starla Benavides [facility] [id number] 2018-12-12 15:12:00 2018-12-12 23:59:00 Outpatient Claudio Lararosangela [facility] [id number] 2018-12-12 15:12:00 2018-12-12 15:12:00 Outpatient [id number] 2017-10-18 12:11:00 2017-10-18 13:35:00 Departed Emergency Room [facility] [id number] [facility] 2017-08-08 10:44:00 2017-08-08 12:40:00 Departed Emergency Room [facility] [id number] [facility] 2017-03-08 03:32:00 2017-03-08 09:42:00 [facility] [id number] 2016-03-28 12:35:00 2016-03-28 23:59:00 [facility] [id number] 2016-03-14 09:43:00 2016-03-14 13:00:00 Outpatient Raimundo Marsh [facility] [id number] 2016-02-28 10:29:00 2016-02-28 23:59:00 [facility] [id number] 2016-02-07 09:32:00 2016-02-07 23:59:00 Outpatient Mpi an, Non Associated [facility] [id number] 2016-01-31 08:36:00 2016-01-31 23:59:00 [facility] [id number] 2015-12-17 09:23:00 2015-12-17 23:59:00 Outpatient Fidencio Mack [facility] [id number] 2015-07-26 11:44:00 2015-07-27 18:26:00 Outpatient José Thomas [facility] [id number] 2014-10-06 17:16:00 2014-10-09 12:30:00 Outpatient Padmini Wright [facility] [id number] 2014-06-16 10:42:00 2014-06-16 23:59:00 Outpatient Ancelmo Perkins [facility] [id number] 2013-11-21 09:12:00 2013-11-21 23:59:00 Outpatient Montse Tsang [facility] [id number] 2013-11-20 09:41:00 2013-11-20 14:00:00 Outpatient Trinh Montse [facility] [id number] 2013-11-17 13:08:00 2013-11-17 23:59:00 Outpatient JerriMontse leong [facility] [id number] 2013-05-21 09:01:57 2013-05-21 09:01:57 Outpatient [facility] [id number] 2013-05-13 14:07:00 2013-05-13 21:10:00 Outpatient [facility] [id number] [facility] Results Test Description Test Time Test Comments Results Result Comments Source SCR MAMM BILATERAL JACOB CAD DIGITAL 2020-01-14 08:12:08 - SCR MAMM BILATERAL JACOB CAD DIGITALBILATERAL DIGITAL SCREENING MAMMOGRAM 3D/2D WITH CAD: 01/13/2020CLINICAL: Asymptomatic. Digital breast tomosynthesis was performed in addition to routine CC and MLO views. Current mammographic images were evaluated by either a ION Signature M-Vu or a [employer] ImageChecker CAD (computer aided detection system). Comparison is made to exams dated 09/05/2018 mammogram, 2017 mammogram, and 07/11/2016 mammogram - [facility] The tissue of both breasts is predominantly fatty. No suspicious mass, architectural distortion, malignant type calcification, or lymph node abnormality detected. Breast architecture is stable compared to prior exams.IMPRESSION: NEGATIVEThere is no mammographic evidence of malignancy. Resume annual screening mammography in one year. Filippo Hendrickson M.D. ss/penrad:01/14/2020 08:12:08 Entry: cl - 01/14/2020 08:12:08Imaging Technologist: Vicky Abreu FW, [facility]-letter sent: BIRADS 1-2 Normal Mammogram BI-RADS: 1 Negative SCR MAMM BILATERAL JACOB CAD DIGITAL 2018-09-05 10:35:25 - SCR MAMM BILATERAL JACOB CAD DIGITALBILATERAL DIGITAL SCREENING MAMMOGRAM 3D/2D WITH CAD: 09/05/2018CLINICAL: Asymptomatic. Digital breast tomosynthesis was performed in addition to routine CC and MLO views. Current mammographic images were evaluated by either a ION Signature M-Vu or a [employer] ImageChecker CAD (computer aided detection system). Comparison is made to exams dated 08/22/2017 mammogram, 07/02 mammogram, and [facility]. The tissue of both breasts is predominantly fatty. No suspicious mass, architectural distortion, malignant type calcification, or lymph node abnormality detected. Breast architecture is stable compared to prior exams.IMPRESSION: NEGATIVEThere is no mammographic evidence of malignancy. Resume annual screening mammography in one year. Terrie Joe M.D. /penrad:09/05/2018 10:35:25 [employer]: Feli Begum FW, [facility]-FWletter sent: BIRADS 1-2 Normal Mammogram BI-RADS: 1 Negative CARDIAC ENZYMES 2017-03-08 09:48:00 <0.02 [facility] [place] ELECTROLYTES 2017-03-08 09:48:00 11.2 [facility] ELECTROLYTES 2017-03-08 09:48:00 17 [facility] ELECTROLYTES 2017-03-08 09:48:00 1.01 [facility] [place] ELECTROLYTES 2017-03-08 09:48:00 145 [facility] [place] ELECTROLYTES 2017-03-08 09:48:00 4.2 [facility] [place] ELECTROLYTES 2017-03-08 09:48:00 9.3 [facility] [place] ELECTROLYTES 2017-03-08 09:48:00 109 [facility] [place] ELECTROLYTES 2017-03-08 09:48:00 29 [facility] [place] ELECTROLYTES 2017-03-08 09:48:00 121 [facility] [place] ELECTROLYTES 2017-03-08 09:48:00 52 [facility] [place] HEMATOLOGY 2017-03-08 09:48:00 66.7 [facility] [place] HEMATOLOGY 2017-03-08 09:48:00 19.8 [facility] [place] HEMATOLOGY 2017-03-08 09:48:00 8.8 [facility] [place] HEMATOLOGY 2017-03-08 09:48:00 0.7 [facility] [place] HEMATOLOGY 2017-03-08 09:48:00 0.5 [facility] [place] HEMATOLOGY 2017-03-08 09:48:00 4.2 [facility] [place] HEMATOLOGY 2017-03-08 09:48:00 5.0 [facility] [place] HEMATOLOGY 2017-03-08 09:48:00 0.3 [facility] [place] HEMATOLOGY 2017-03-08 09:48:00 1.5 [facility] [place] HEMATOLOGY 2017-03-08 09:48:00 31.5 [facility] [place] HEMATOLOGY 2017-03-08 09:48:00 8.1 [facility] HEMATOLOGY 2017-03-08 09:48:00 198 [facility] [place] HEMATOLOGY 2017-03-08 09:48:00 15.3 [facility] [place] HEMATOLOGY 2017-03-08 09:48:00 32.8 [facility] [place] HEMATOLOGY 2017-03-08 09:48:00 83.2 [facility] HEMATOLOGY 2017-03-08 09:48:00 Test Item MCH (test code = MCH) 26.2 pg 27.0-31.0 [facility] [id number] 09:48:[facility].3[facility] 2017-03-08 09:48:003.95[facility] UowtnivQZTKCJGIOL1462-28-02 09:48:007.6[facility] HermannCHEM XDHFG7673-99-44 11:24:002.1[facility]annCHEM LRDAD6028-64-40 11:24:004.3[facility]annCHEM NEWEB4596-44-91 11:24:0026[facility]annCHEM FLNBK4500-01-35 11:24:22222Zianavtm HermannCHEM IUSIO5962-13-22 11:24:25999 [facility]CHE[facility] MJLMN3789-05-47 11:24:004.1[facility]annCHEM PANEL 2015-07-27 11:24:008.6[facility]CHE[facility] TDXCL9993-43-22 11:24:001.26[facility]annCHEM LKERU2008-45-70 11:24:57385Htevdvsr HermannCHEM GMRQS7436-77-15 11:24:0030[facility]annCHE[facility] IRRJN3840-18-88 11:24:0011.1[facility]annCHEM RSPKG0375-21-90 11:24:0040[facility]annCARDIAC QTXDHTE9713-16-21 00:37:00< 0.010[facility]annCARDIAC MMVSCDN5954-83-06 00:37:00<0.02[facility] [place] CARDIAC HVUORAA2845-44-32 00:37:78497Ftlzpoji HermannCARDIAC FMSDEID1583-69-03 00:37:001.7[facility]annCARDIAC TQPYHOI3569-90-72 00:37:001.6[facility] CHEM CVXZU1347-11-10 00:37:001.7[facility]annCHEM VWCSR7347-42-97 00:37:0042 [facility]CHE[facility] FYNTZ9858-99-54 00:37:009.1[facility]annCHEM PANEL 2015-07-27 00:37:0013.4[facility]annCHEM VQBVH9566-53-85 00:37:0027[facility]annCHEM OZSPT2643-65-12 00:37:03536Uojbgcsp HermannCHEM TWNUY3925-44-14 00:37:003.4[facility]annCHEM VNVQP8791-70-28 00:37:38096Nrrlwaok HermannCHEM VHMKR0997-76-23 00:37:001.22[facility]annCHEM IBZGX7532-45-62 00:37:0083 [facility]annCHE[facility] FWOUT0834-98-36 00:37:0022[facility] ZtlodwpRTGFRQ0409-99-56 00:37:0031[facility] MichndrJHDBMD4408-42-32 00:37:0030[facility] HermannLIPIDS 2015-07-27 00:37:09735Xngsjufp CjilsacIWWBXJ6342-57-58 00:37:0062[facility] QlepgxpMHKNAZ1640-51-63 00:37:001.98[facility] BtpchclOKIDNJ7926-77-87 00:37:67228 [facility]annSPECIAL BNWIXASWP7982-69-53 00:37:008.1[facility]annCARDIAC KHHCOWO3469-98-27 19:02:30984Mzwitghs HermannCARDIAC AXYNRMU5319-47-08 19:02:00< 0.02[facility]annCHEM RKRLR9182-87-05 19:02:49696Xrxagwol HermannCHEM PANEL 2015-07-26 19:02:001.6[facility]annCHEM QOGJP9111-04-56 19:02:003.7[facility]annCHEM ESGJY3754-85-51 19:02:0037[facility]annCHEM CEQTA8079-84-56 19:02:86024Zvjtmtxn HermannCHEM WEXOC0916-18-40 19:02:0031[facility]annCHE[facility] UXOBK3553-85-23 19:02:009.5[facility]annCHE[facility] XCHPG2591-56-14 19:02:0023 [facility]annCHE[facility] BSTJK6657-63-74 19:02:39659Ndigmtve HermannCHEM PANEL 2015-07-26 19:02:004.4[facility]annCHEM GMQAZ8576-23-21 19:02:001.35[facility]annCHEM VTLPR1688-80-06 19:02:07332Hvayrvqn HermannCHEM REIUF3794-96-75 19:02:000.5[facility]annCHEM UBUEG9358-02-55 19:02:003.7[facility]annCHEM YRILD5387-90-29 19:02:0019[facility]annCHEM EOHLW2029-73-08 19:02:81730 [facility]annCHE[facility] NIEWZ6811-35-78 19:02:0026[facility]annCHEM PANEL 2015-07-26 19:02:007.3[facility]annCHEM BOMRZ4842-43-07 19:02:0011.4[facility]annCHEM BVVTS5293-64-37 19:02:0017[facility]annCHEM ZAGTD7673-85-32 19:02:003.6[facility]annCHEM TOZAY6647-60-70 19:02:001.0[facility]annCHEM BRTRE7685-08-64 19:02:001.2[facility] RxcqploMMYGPOSWJA9387-09-75 19:02:0018.5 [facility] DmryunwZNRBCPMYCR9869-28-76 19:02:006.3[facility] HermannHEMATOLOGY 2015-07-26 19:02:003.6[facility] YcbpwizEIZZHBVBCG6794-36-94 19:02:0071.1[facility] UrayieeQNUPNQVPWL7623-18-08 19:02:000.5[facility] OfqrpfeLFXGLVPHIA4720-07-71 19:02:005.4[facility] WahsgadOFALAWFZJQ0312-02-58 19:02:001.4[facility] PURPGBQOPB3144-49-46 19:02:000.5[facility] ZzwpkspZFKFUCPISI0549-96-79 19:02:000.3 [facility] PckqtfoBBEOXRSZCO5147-93-49 19:02:008.5[facility] HermannHEMATOLOGY 2015-07-26 19:02:42764Foavatud QijdudrIDNAUXHOHV7934-20-27 19:02:0014.2[facility] ZbqgimtKYTBSXWKSR2019-63-20 19:02:0087.8[facility] FfeycplIGBYZAYPAQ7169-75-34 19:02:0037.2[facility] RtjabfuKXVSAWDRCZ4292-92-61 19:02:00* Test Item Value Reference Range Interpretation Comments MCH (test code = MCH) 27.5 pg 27.0-31.0 [facility] AqrxitcQFJSXSNHLJ0545-14-10 19:02:0011.7[facility] HermannHEMATOLOGY 2015-07-26 19:02:0031.3[facility] BtryihlADMLWWTPDV8506-70-61 19:02:004.24[facility] JeobwszMQIVLTKSQR9168-64-69 19:02:007.7[facility] OyymnhrYLIKMYFVPE0300-02-15 19:02:000.94[facility] LgjulaxVTCJATLOZF7546-36-40 19:02:00* Test Item Value Reference Range Interpretation Comments PT (test code = PT) 12.9 s 12.0-14.7 [facility] XBULS6540-71-70 19:02:00Clear (07/26/15 1:02 PM) [facility] VCDNR8568-82-41 19:02:00* Test Item Value Reference Range Interpretation Comments UA Spec Grav (test code = UA Spec Grav) 1.010 1 [facility] SSDOU7744-61-16 19:02:00Yellow *NA*(07/26/15 1:02 PM) [facility] BZAMN0132-61-27 19:02:00Negative (07/26/15 1:02 PM) [facility] XRWAK9359-85-24 19:02:00Negative (07/26/15 1:02 PM) [facility] LRWEW3031-12-51 19:02:000.2[facility] PSXDT4652-35-64 19:02:00Negative (07/26/15 1:02 PM)[facility] PEBRO1827-16-31 19:02:00Negative *NA*(07/26/15 1:02 PM)[facility] FJVHV8019-44-38 19:02:00* Test Item Value Reference Range Interpretation Comments UA pH (test code = UA pH) 6.5 1 5.0-8.0 [facility] JBJZB6714-82-60 19:02:00None Seen (07/26/15 1:02 PM) [facility] WTWVJ5249-88-52 19:02:00None Seen (07/26/15 1:02 PM) [facility] PPAUQ8206-59-29 19:02:00None Seen (07/26/15 1:02 PM) [facility] JsgobhwHSSSATGJLMRP7325-26-61 06:14:0010.8[facility] HermannELECTROLYTES 2014-10-09 06:14:0030[facility] NfekrzdOUSNARSXAFQS1865-80-77 06:14:003.8[facility] SwmlfedDULTUFNJODRC2766-80-06 06:14:73902Fejkgqhi MpfiiguSXJUPISZWSQS7912-54-27 06:14:0029[facility] QmrddfcFHISIGFXWWJN7452-05-68 06:14:36557Rejsvekt [facility] FXYVPXIIPXRI8546-49-80 06:14:001.6[facility] FaszjyiFTCEWKNYRZQW0286-82-95 06:14:0026[facility] AkwjkrfZAYIAHVMXKDL8369-32-81 06:14:0096[facility] FSXHIYIOSAQL2338-01-11 06:14:008.6[facility] MbdksfqZLDJGXIGSR2124-37-58 06:14:00 13.6[facility] KvdrugpXBVKULOXNR5277-57-50 06:14:78842Evmrnwdy HermannHEMATOLOGY 2014-10-09 06:14:009.1[facility] LjwlcumMHCNRPFEJZ7657-36-24 06:14:0010.7[facility] WmaogqkLMHRZOHVRY8369-73-30 06:14:0032.5[facility] VlqizplMQQZDKZOYB5848-60-38 06:14:0085.0[facility] HjvnjkjRKGYIPYBHD5132-36-42 06:14:00* Test Item Value Reference Range Interpretation Comments MCH (test code = MCH) 28.0 pg 27.0-31.0 [facility] DbyufkaGQAGBSOVZR2007-21-42 06:14:0032.9[facility] HermannHEMATOLOGY 2014-10-09 06:14:007.1[facility] PysknarPDYHBLAJXQ3787-26-12 06:14:003.82[facility] WxntnouMERNLUECYV0585-60-53 06:14:009.4[facility] AbmofyiZSRJCVRAKJ1235-63-18 06:14:005.0[facility] ToebmiqTJNCLRAYKX6995-59-40 06:14:000.6[facility] QMYUGPEONJ6333-85-60 06:14:004.4[facility] YusnfxiVGQJCIOFTU9353-28-94 06:14:001.7 [facility] JshnhzzZWEUTLSQUH9757-98-58 06:14:0061.0[facility] HermannHEMATOLOGY 2014-10-09 06:14:0024.0[facility] HnxdrymTTYQEBVBSQ5602-82-05 06:14:000.4[facility] AxukkswDUQYIXPWFO5480-14-79 06:14:000.7[facility] HermannCHEM DJRUM0648-03-07 14:06:0036[facility]annCHEM WJDJA9902-03-44 14:06:64956Fivgdqhk HermannCHEM YQRFA4338-00-09 14:06:003.9[facility]annCHEM OTPQH9417-74-73 14:06:26572 [facility]annCHE[facility] BHCMR9663-11-08 14:06:001.4[facility] HermannCHEM PANEL 2014-10-07 14:06:0032[facility]annCHEM ETWIS5923-00-03 14:06:008.9[facility]annCHEM MQULT7104-05-98 14:06:0013.9[facility]annCHEM JCCKX8261-73-48 14:06:0028[facility]annCHEM CVFLW8311-14-13 14:06:34374Foiyiqxk [facility] KGYLDSGDEZ8906-75-80 14:06:004.32[facility] OmfdfbdFHPQEXNYWF1481-19-82 14:06:00 37.1[facility] PihxpdgCISKTGPUFK5021-33-74 14:06:008.7[facility] HermannHEMATOLOGY 2014-10-07 14:06:0012.2[facility] BzldffoHDAWXUCUFR7393-27-31 14:06:0085.8[facility] WvqdrqrNKCINURQXG7449-83-50 14:06:22583Kkyxfffj QvuwrltDWWJZEDULO3510-90-90 14:06:00* Test Item Value Reference Range Interpretation Comments MCH (test code = MCH) 28.2 pg 27.0-31.0 [facility] AdhvchmBRUSZGDIJY1483-33-46 14:06:0032.9[facility] HermannHEMATOLOGY 2014-10-07 14:06:0013.5[facility] OpdsmafUCSZMPDUMC1860-23-29 14:06:009.6[facility] KpdblqnLYCKYWVGJP3164-07-23 14:06:009.0[facility] BkgpqfpUDGVPKRPCD1409-21-42 14:06:003.3[facility] AbtcbegPFJZOWWDNA6680-49-69 14:06:000.6[facility] HYHRBUIHVT6383-86-23 14:06:001.4[facility] XcwnluvOWBNYIZZEK8330-52-32 14:06:00 71.0[facility] KctulobTHRDQPFPRY4947-30-77 14:06:0016.1[facility] HermannHEMATOLOGY 2014-10-07 14:06:006.2[facility] YylbnilZQGNFNECTW2434-39-31 14:06:000.8[facility] GlnvfnfEOUZWTCEWS3646-04-58 14:06:000.3[facility] HermannCHEM KHKDW0692-37-66 03:56:001.5[facility]annCHEM TTWCR0834-89-48 03:56:0023[facility]annCHEM KAGEC1297-91-60 03:56:000.6[facility]annCHEM PMAMI2082-60-95 03:56:0097 [facility]annCHE[facility] KMKDO5996-57-90 03:56:002.9[facility] HermannCHEM PANEL 2014-10-07 03:56:004.0[facility]annCHEM XHDDC8223-77-89 03:56:000.8[facility]annCHEM HZQWH2388-11-85 03:56:0024[facility]annCHEM CRUDJ6581-34-63 03:56:0077[facility]annCHEM KUBWY9071-02-24 03:56:0014[facility]annCHEM VRVRH7925-89-88 03:56:61484Ybaurjzq HermannCHEM MKPGK5715-04-37 03:56:0018 [facility]annCHE[facility] IDZQC9672-78-40 03:56:008.9[facility]annCHEM PANEL 2014-10-07 03:56:003.3[facility]annCHEM BDBWF6618-71-55 03:56:0013.9[facility]annCHEM DCBZS2937-04-49 03:56:0028[facility]annCHEM OWCAB5323-20-49 03:56:82945Mgyoeqay HermannCHEM DSPFS4772-16-27 03:56:002.0[facility]annCHEM RTGED8481-90-75 03:56:0035[facility]annCHEM UAEAW7001-86-24 03:56:007.3 [facility]annCHEM BEDKW2549-23-99 03:56:0011.1[facility] HermannHEMATOLOGY 2014-10-07 03:56:90441Updxgbdm YlnxsgiDRHSQMZBTX7425-27-73 03:56:0013.4[facility] MzflpeyKRYGYECZRE8892-24-76 03:56:0033.6[facility] RotoavlSAJRHUAIBO4615-54-17 03:56:008.6[facility] NceureqYGKEDJGLKP9187-47-20 03:56:004.15[facility] VKRHOESEYT9352-31-72 03:56:0010.5[facility] UkdqtqoCYNWTTUDED4849-62-61 03:56:00 85.5[facility] JxvqlysCNVAQNJSXI5436-41-47 03:56:0011.9[facility] HermannHEMATOLOGY 2014-10-07 03:56:0035.5[facility] SbgwaldYTWZMIOOQR9364-26-50 03:56:00* Test Item Value Reference Range Interpretation Comments MCH (test code = MCH) 28.7 pg 27.0-31.0 [facility] YcbjgtgIVGTGMGBYH5911-41-37 03:56:001.08[facility] HermannHEMATOLOGY 2014-10-07 03:56:00* Test Item Value Reference Range Interpretation Comments PT (test code = PT) 14.1 s 12.0-14.7 [facility] EqfgutnYUKNYWAIBI8631-30-41 03:56:00* Test Item Value Reference Range Interpretation Comments PTT (test code = PTT) 33.7 s 22.9-35.8 [facility] ClhrpcnBQZGKFEYIN4085-07-87 03:56:0073.3[facility] HermannHEMATOLOGY 2014-10-07 03:56:001.5[facility] DymtwwuFIIODKOUKF0938-53-39 03:56:0017.1[facility] PdrwpolORFTHUMADH3587-38-62 03:56:000.5[facility] SjoxfltGLVEXAYXHK2981-10-42 03:56:007.6[facility] CrjpvepVBAVEQNTGW5817-65-80 03:56:007.7[facility] GOJKQXUFHG4402-94-08 03:56:001.8[facility] ZnzaahxTXISLBADCT7539-18-79 03:56:000.2 [facility] HpyorseYDGBGISYTR7893-39-03 03:56:000.8[facility] HermannHEMATOLOGY 2014-10-07 03:56:000.1[facility] AwyunncJDEYTMLLGJ3694-27-66 02:29:00Negative (05/13/2013 20:29:00) [facility] EqlfzerHIPZTLEXYO7037-38-04 02:29:000.2[facility] RtwqydyIYGYHQCQOB3137-47-95 02:29:00Trace *ABN*(05/13/2013 20:29:00) [facility] ZjczjazEVHWSUBLFE9047-22-30 02:29:00Negative *NA*(05/13/2013 20:29:00) [facility] EkfzjwaPUQXVTATII0878-68-76 02:29:00Small *ABN*(05/13/2013 20:29:00) [facility] FgmbtvrHFNXFIEDSW3208-42-94 02:29:00Negative *NA*(05/13/2013 20:29:00) [facility] GbiluxvMGAINOWWEU3479-08-50 02:29:00Negative (05/13/2013 20:29:00) [facility] ZmnmgmaKVLPIJPCDV1935 02:29:00* Test Item Value Reference Range Interpretation Comments UA pH (test code = UA pH) 6.0 1 5.0-8.0 N [facility] FbsrmlzPJMDERQIND1815-94-22 02:29:00Yellow *NA*(05/13/2013 20:29:00) [facility] NllcisxNNHXAVHFPU0374-92-48 02:29:00Negative (05/13/2013 20:29:00) [facility] McikmzqDGSPKTYDVX0188-63-21 02:29:00* Test Item Value Reference Range Interpretation Comments UA Spec Grav (test code = UA Spec Grav) 1.015 1 [address] [facility] TprceibLLPEHWKYWL5581-25-83 02:29:00Clear (05/13/2013 20:29:00) [facility] MwuyxojQVDRBFGGLG2925-52-32 02:29:00None Seen (05/13/2013 20:29:00) [facility] ApbobrfKFAPWUIGPJ9623-11-86 21:00:48Performed (05/13/2013 15:00:48) [facility] WxefqbeAAEBJCGEDR8261-93-69 21:00:48* Test Item Value Reference Range Interpretation Comments UA pH (test code = UA pH) 6.0 1 5.0-8.0 N [facility] GdhwvqkBYRXWQXGXG5633-47-97 21:00:48Negative (05/13/2013 15:00:48) [facility]CYIYDICPGR2992[facility] 21:00:48Negative *NA*(05/13/2013 15:00:48) [facility] CenterWitopeoJKYYUCYQBQ0055-02-16 21:00:48Negative (05/13/2013 15:00:48) [facility] XmwxrcwXESSUKNLZJ5398-29-53 21:00:48Yellow *NA*(05/13/2013 15:00:48) [facility] OenblxaFRTRYEILQS4115-16-75 21:00:48Clear (05/13/2013 15:00:48) [facility] CenterOpytphzYAJONGQHMQ5830-51-66 21:00:48* Test Item Value Reference Range Interpretation Comments UA Spec Grav (test code = UA Spec Grav) 1.005 1 [address] [facility] DcwrapzHLGRDHZZJF9927-42-61 21:00:48Negative *NA*(05/13/2013 15:00:48) [facility] CenterRomsydpLFRRVWFBUY8963-66-58 21:00:48Moderate *ABN*(05/13/2013 15:00:48) [facility] CenterMtcaxssYDWMGMYZVZ5711-28-58 21:00:48Negative (05/13/2013 15:00:48) [facility] CenterJomacznTBABEWBUQR6019-74-72 21:00:48Negative (05/13/2013 15:00:48) [facility] TnpbvgwQQRDFLAXDF8804-48-19 21:00:480.2[facility] HermannURINALYSIS 2013-05-13 21:00:48None Seen (05/13/2013 15:00:48) [facility]annURINALYSIS 2011-08-20 03:15:00Trace *ABN*(08/19/2011 21:15:00) [facility]annURINALYSIS 2011-08-20 03:15:00Negative (08/19/2011 21:15:00) [facility]annURINALYSIS 2011-08-20 03:15:000.2[facility] XmcuohyMYOFDJBNWM1330-05-89 03:15:00Negative *NA*(08/19/2011 21:15:00) [facility] AwkygclIIADNZESOI5172-86-58 03:15:00Negative *NA*(08/19/2011 21:15:00) [facility] ZcqtxnuQEIXDDLPWD1264-71-59 03:15:000-2 /HPF (08/19/2011 21:15:00) [facility] ZlrekquWGVQFYQMDW3350-48-67 03:15:00Few /LPF (08/19/2011 21:15:00) [facility] NiimdgdMMZBLGOPRG0722-16-26 03:15:00Few /HPF (08/19/2011 21:15:00) [facility] ZrgaypwQEMQMUZZIJ9546-56-71 03:15:000-2 /HPF (08/19/2011 21:15:00) [facility] YgzjybhKZJZTWYUUN3989-29-88 03:15:00Performed (08/19/2011 21:15:00) [facility] TklxhtiIUUHSQUVWN6875-38-59 03:15:00Negative (08/19/2011 21:15:00) [facility] LaetmtdRWVPCEZOAZ4387-99-86 03:15:00* Test Item Value Reference Range Interpretation Comments UA pH (test code = UA pH) 6.0 1 5.0-8.0 N [facility] PbiicmcRZDQAKCTYE1807-97-29 03:15:00Negative (08/19/2011 21:15:00) [facility] RwrbizmCHUDFSXNNB1115-66-11 03:15:00Negative (08/19/2011 21:15:00) [facility] SnpuadxWWUVRPHCFR5055-05-88 03:15:00Clear (08/19/2011 21:15:00) [facility] RvcxqgaBIZROWCKGZ0663-56-26 03:15:00Yellow *NA*(08/19/2011 21:15:00) [facility] MapzzvkSBGZDWZYQQ1014-69-99 03:15:00* Test Item Value Reference Range Interpretation Comments UA Spec Grav (test code = UA Spec Grav) 1.020 1 N [facility] KrlohszFOSPIXEOR9619-20-61 01:24:72774Rakxhogq HermannCHEMISTRY 2011-08-20 01:24:63835Nuavefis EekvekaPXXWKLNPY7886-64-99 01:24:0020[facility] ZsrdpzoSPIMVKSLB2836-16-84 01:24:001.1[facility] ApwigxdGBTHMKJDN8433-16-54 01:24:008.6[facility] RvvtmdgRTAAPXZNS1598-88-34 01:24:27972Wwfcamdm [place] WSQUWFJLK7684-94-53 01:24:003.7[facility] CgicxwkICLRGJNNQ7965-34-30 01:24:0029 [facility] PrptaizOWCMAXVGK7098-33-10 01:24:0010.7[facility] HermannCHEMISTRY 2011-08-20 01:24:003.6[facility] PkwnywrBCXZZZSQW9551-15-31 01:24:56686Mlzevbfm ZctpbywMBTNAWLFH7492-38-90 01:24:001.9[facility] FmdoxapJUTRIIYGX1897-48-12 01:24:00<0.02[facility] DjfnizmMKYFHXPST2967-11-20 01:24:00<0.010[facility] Leanrdo RFNSTDWTD3650-37-26 01:24:001.2[facility] RvunsxrYZGGDVWKZ4635-65-89 01:24:001.4 [facility] XpzhrfzABLEHLQCVQ9461-16-60 01:24:00* Test Item Value Reference Range Interpretation Comments PTT (test code = PTT) 30.9 s 22.9-35.8 N [facility] TwzidvgMWCYTSHVVF2988-23-52 01:24:00* Test Item Value Reference Range Interpretation Comments PT (test code = PT) 12.2 s 12.0-14.7 N [facility] OdqhshyXSOKWSRAMO2304-54-71 01:24:000.90[facility] HermannHEMATOLOGY 2011-08-20 01:24:0036.8[facility] MeeptzzJHALNZFRPO6973-61-91 01:24:0011.9[facility] VptxslhOJMLMWKYNU1288-91-38 01:24:004.30[facility] GtizdnxUCQMBPJSWE8533-67-21 01:24:0085.6[facility] YrtvnbyJVWWIRPTKZ1065-81-81 01:24:0013.8[facility] [place] THXFIUOVIG1847-69-43 01:24:06400Kisvsfrt NlkczlrSLMHNSEFHJ0856-34-97 01:24:00* Test Item Value Reference Range Interpretation Comments MCH (test code = MCH) 27.7 pg 27.0-31.0 N [facility] UgfbvmoEALFIPQEVS7239-40-33 01:24:0032.3[facility] HermannHEMATOLOGY 2011-08-20 01:24:008.4[facility] CcffwntRIGGLBDUAK0382-55-72 01:24:006.4[facility] PjahzwmVTKLIBQDMI8721-54-81 01:24:000.2[facility] PuklxrxRRZRYRTFOD8454-26-59 01:24:000.6[facility] TjcyalrRXYDMKQBOT9528-22-98 01:24:000.2[facility] VKEZIIMTVZ4586-82-07 01:24:003.3[facility] ZylskioOEQECXGWBM0723-16-02 01:24:002.3 [facility] XaxaessMAKAEVVFBE7688-52-21 01:24:000.0[facility] HermannHEMATOLOGY 2011-08-20 01:24:0035.3[facility] QcbkvaeDUITCWWVEA4777-98-01 01:24:0051.1[facility] AxebzogUCJVYSSZZK1754-44-26 01:24:003.3[facility] NwuvxhcDUTMESOXHV2762-55-47 01:24:0010.1[facility] [place]
--- NOTE | 2020-05-09 17:03 | Diagnostic Imaging Report ---
EXAMINATION: CXR 1 VIEW - HOPD COMPARISON: Report of chest x-ray performed 01/02/2016. Images are not available for comparison INDICATION: ^chest pain ^[id number] ^[id number] DISCUSSION: Frontal view of the chest obtained at 1651 hours. HEART AND MEDIASTINUM: The heart is normal in size. The aorta is mildly tortuous LINES: None. LUNGS: The lungs are well inflated and clear. No pneumonia or pulmonary edema. PLEURA: Mild eventration of the right diaphragm. No pleural effusion or pneumothorax. BONES AND SOFT TISSUES: Degenerative changes of the spine. No focal osseous lesion.. The soft tissues are normal. IMPRESSION: No acute cardiopulmonary disease. Signed by: Dr. Jessica Richard MD on 05/09/2020 4:59 PM
--- NOTE | 2020-05-09 18:29 | NUR ---
[facility] CALLED TO UPDATE US THAT THEY STILL HAVE NOT BEEN ABLE TO REACH THE DOCTOR, BUT ARE CONTINUING TO TRY.
--- NOTE | 2020-05-09 18:52 | Emergency Department Note ---
History of Present Illnes History of Present Illness Chief Complaint: Chest Pain History of Present Illness This is a 84 year old female with 3 day hx of constant left CP describ ed as "soreness" radiating to left shoulder. +DM, +HTN, + > cholesterol, + family Hx. Improves with exertion. 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: ASA 325MG X 2 DAYS Account Analyst Required: No Onset (how long ago): day(s) (3) Quality: No pain Onset quality: gradual Duration (how long): day(s) (3) Timing of current episode: unable to specify Progression: unable to specify Chronicity: chronic Context: Reports other (recently started checking BP at home) Relieving factors: none Exacerbating factors: none Associated symptoms: Denies confusion, Denies chest pain, Denies cough, Denies diaphoresis, Denies fever/chills, Denies headaches, Denies loss of appetite, Denies malaise, Denies nausea/vomiting, Denies rash, Denies shortness of breath, Denies syncope, Denies weakness Treatments prior to arrival: none Past Medical/Family History Physician Review I have reviewed the patient's past medical and family history. Any updates have been documented here. Past Medical History Recent Fever: No Clinical Suspicion of Infectio: No New/Unexplained Change in Ment: No Past Medical History: Hypertension, Diabetes, Hyperlipedemia, Chronic Kidney Disease Other Medical History: GOUT CKD STAGE 4 Other Surgery: BILATERAL KNEE REPLACEMENTS, AND BACK SURGERY X3 Social History Smoking Cessation: Unknown if ever smoked Counseling Performed: No Alcohol Use: None Any Illegal Drug Use: No Other Last Tetanus: UNKNOWN Any Pre-Existing Lines (PICC,: No Review of Systems Review of Systems Constitutional: Reports malaise; Denies chills, Denies diaphoresis, Denies fever, Denies weakness EENTM: Denies nose congestion, Denies throat pain Cardiovascular: Denies chest pain, Denies edema, Denies palpitations, Denies syncope Respiratory: Denies cough, Denies dyspnea Gastrointestinal: Denies diarrhea, Denies nausea, Denies vomiting Genitourinary: Denies dysuria Musculoskeletal: Denies back pain Integumentary: Denies lumps Neurological: Denies headache, Denies numbness Psychological: Denies anxiety Endocrine: Denies excessive sweating, Denies increased hunger, Denies increased thirst, Denies increased urination Hematological/Lymphatic: Denies swollen glands Physical Exam Related Data Allergies: Coded Allergies: iodine (Verified Allergy, Severe, anaphylaxis, 10/18/17) prednisone (Verified Allergy, Severe, Increase B/P, 10/18/17) Penicillins (Verified Allergy, Mild, 01/02/16) acetaminophen (Verified Allergy, Mild, 01/02/16) hydrocodone (Verified Allergy, Mild, 01/02/16) levofloxacin (Verified Allergy, Mild, 01/02/16) Triage Vital Signs Vital Signs Date Time Temp Pulse Resp B/P (MAP) Pulse Ox O2 Delivery O2 Flow Rate FiO2 05/09/20 16:10 97.4 70 16 177/90 97 Room Air Physical Exam CONSTITUTIONAL Constitutional: Present well-developed, Present well-nourished HENT HENT: Present normocephalic, Present atraumatic, Present oropharynx clear/moist, Present nose normal HENT L/R: Present left ext ear normal, Present right ext ear normal EYES Eyes: Reports PERRL, Reports conjunctivae normal NECK Neck: Present ROM normal PULMONARY Pulmonary: Present effort normal, Present breath sounds normal CARDIOVASCULAR Cardiovascular: Present regular rhythm, Present heart sounds normal, Present capillary refill normal, Present normal rate GASTROINTESTINAL Abdominal: Present soft, Present nontender, Present bowel sounds normal GENITOURINARY Genitourinary: Present exam deferred SKIN Skin: Present warm, Present dry MUSCULOSKELETAL Musculoskeletal: Present ROM normal NEUROLOGICAL Neurological: Present alert, Present oriented x 3, Present no gross motor or sensory deficits PSYCHOLOGICAL Psychological: Present mood/affect normal, Present judgement normal Results Laboratory Laboratory comments WBC 7.5, HGB 11.3, HCT 36.3, PLT 225, GLU 205, BUN 27, R 1.6, cL 94, k 4.1, Trop negative Procedures 12 Lead ECG Interpretation ECG Interpretation : ECG: ECG 1 Account Analyst: Interpreted by ED physician Prior ECG tracings: reviewed Rhythm: sinus rhythm BPM: 74 Conduction: intraventricular conduction delay ST segments normal: Yes T wave inversion: I, II, III Clinical Impression: abnormal ECG Assessment & Plan Medical Decision Making MDM Differential dx includes, but not limited to: CT, ACS, pneumothorax, pnemonia, muscle strain, pleurisy, AAA, dissection. Pt 84 y/o F with CP radiating to left shoulder. No prior hx of CAD, but has HTN, DM, > Cholesterol, and + family Hx. Initial troponin negative. Will transfer for CP rule out. Reassessment Reassessment 1704 called José Chester hTalia Vásquez neo admitted to [facility]. admit to hospitalist, will consult. Checked out to Dr. Espinoza @ 1900 awaiting transfer. patient resting comfortably @ 1900 Assessment & Plan Final Impression: (1) Chest pain Depart Disposition: [facility] Last Vital Signs Date Time Temp Pulse Resp B/P (MAP) Pulse Ox O2 Delivery O2 Flow Rate FiO2 05/09/20 16:10 97.4 70 16 177/90 97 Room Air Home Meds Active Scripts Methocarbamol (ROBAXIN-750) 750 Mg Tablet, 1-2 TAB PO TID PRN for PAIN, #30 TAB 0 Refills Prov:TONY FABIAN MD 08/08/17 Reported Medications Sitagliptin Phosphate (JANUVIA) 100 Mg Tablet, 50 MG PO DAILY, #30 TAB 08/08/17 Furosemide (LASIX) 40 Mg Tablet, 40 MG PO DAILY, #30 TAB 08/08/17 Spironolactone (SPIRONOLACTONE) 25 Mg Tablet, 25 MG PO BID, #60 TAB 08/08/17 Carvedilol (COREG) 12.5 Mg Tab, 25 08/08/17 Glimepiride (GLIMEPIRIDE) 2 Mg Tablet, 4 MG PO, TAB 08/08/17 Isosorbide Dinitrate (ISOSORBIDE DINITRATE) 30 Mg Tablet, 1 TAB PO NISHA 01/02/16 Pantoprazole Sodium* (PROTONIX) 40 Mg Tablet.dr, 40 MG PO DAILY, TAB 01/02/16 Valsartan (DIOVAN) 160 Mg Tab, 160 MG PO BID, #60 TAB 01/02/16 Atorvastatin Calcium (ATORVASTATIN CALCIUM) 10 Mg Tablet, 10 MG PO 2100, #30 TAB 01/02/16 Allopurinol (ALLOPURINOL) 100 Mg Tablet, 100 MG PO BID, #30 TAB 01/02/16 Aspirin (ASPIRIN EC) 81 Mg Tablet., 81 MG PO DAILY, #30 TAB 01/12/14 LYLA BLANTON MD May 09, 2020 16:44
--- NOTE | 2020-05-09 19:29 | NUR ---
spoke with [facility] and stated she has paiged the Doctor again. Dr Espinoza given update
--- NOTE | 2020-05-09 19:39 | NUR ---
pt assisted to bathroom. pt states a pain in chest with movement. pt ambulatory to bathroom. at bedside
[2020-05-09] MEDS ORDERED: SODIUM CHLORIDE FLUSH 10 ML SYR INJ PRN (19:45)
[2020-05-09] MEDS ORDERED: ASPIRIN 81 MG CHEW TAB PO ONE (19:45)
--- NOTE | 2020-05-09 20:15 | NUR ---
TAD Schwab attempted to give report without success.
--- OUTSIDE RECORDS SUMMARY | 2020-05-09 20:23 | XMS REPORT | Continuity of Care Document ---
Author Author Edith Content Fleet KIM Thompson Organization [facility] Address Unknown Phone Unavailable Care Team Providers Care Risk Control Director Name Role Phone [facility] Unavailable Un available Problems Problem Status Onset Date Classification Date Reported Comments Source F/U Active 0 11/06/2019 [facility] FOLLOW UP Active 05/14/2019 [facility] BDCT GERD Active 03/25/2019 [facility] GI F/U APPT Active 03/19/2019 [facility] ESOPHAGEAL DYSMOTILITY, BRONCHIEC Active 02/24/2019 [facility] K21.9 - GASTRO-ESOPHAGEAL REFLUX DISEA Active 02/04/2019 [facility] Ardon R05 - COUGH Active 01/08/2019 [facility] Reeves NEW PT CONSULT - GERD Active 12/17/2018 [facility] Strain of muscle and tendon of front wal l of thorax, initial encounter 03/08/2017 03/11/2017 [facility] CHEST PAIN, HIGH BP, PAIN UNDER SHOULDER Active 03/08/2017 [facility]-Z00.00 ENCOUNTER FOR GENERAL ADULT Active 02/28/2016 [facility] R10.11 - RIGHT UPPER QUADRANT PAIN Active [facility]/01[facility] - DR HASKINS PT FROM 2008 Active 01/28/2016 [facility] M79.89 - OTHER SPECIFIED SOFT TISSUE DI Active 12/17/2015 [facility] Joea CHEST PAIN Active 07/26/2015 [facility] CHEST PAIN/HYPERTENSION/HEADACHE Active 07/26/2015 [facility] L FOOT SWELLING CELLULITIS Act alisha 10/06/2014 [facility] 783.21 - ABNORMAL LOSS O Active 11/18/2013 [facility] MILLAN - HEARTBURN; DIARRHEA; CHRONIC DIAR Active 11/17/2013 [facility] - COLONOSCOPY EGD W/ BX Active 11/17/2013 [facility] UTERINE CANCER? Active 10/29/2013 [facility] REFLUX Active 10/09/2013 [facility] OTHER Active 05/13/2013 [facility] DYSPNEA Active 02/15/2012 [facility] SOB 6 [place] WALK TEST Active 01/19/2012 [facility] STROKE SYMPTOMS Active 08/19/2011 [facility] Cystocele Active 05/21/2013 [facility] Hypertensive disorder, systemic arterial (disorder) Active Problem 03/13/2020 [facility], CASSANDRA Reeves, OPID [place], EDCT Gastroesophageal reflux disease (disorder) Active Problem 03/13/2020 [facility], CASSANDRA Reeves, OPID [place], EDDC Anxiety (finding) Resolved Problem 03/13/2020 [facility], O RIGO Reeves, OPID [place], EDDC Arthritis (disorder) Resolved Problem 03/13/2020 [facility], O RIGO Reeves, OPID [place], EDDC Kumar's palsy (disorder) Resolv ed Problem 06/2020 [facility], O RIGO Reeves, OPID [place], EDDC Cellulitis (disorder) Resolved Problem 03/13/2020 [facility], O RIGO Reeves, OPID [place], EDDC Chronic kidney disease stage 4 (disorder) Active Problem 03/13/2020 [facility], CASSANDRA Reeves, OPID [place], EDDC Diabetes mellitus (disorder) A ctive Problem 06/2020 [facility], O RIGO Reeves, OPID [place], EDDC Diabetes mellitus type 2 (disorder) Resolved Problem 06/2020 [facility], O RIGO Reeves, OPID [place], EDDC Family history of malignant neoplasm of gastrointestinal tract (situation) Active Problem 03/13/2020 [facility], CASSANDRA Reeves, OPID [place], EDDC Steatosis of liver (disorder) Active Problem 06/2020 [facility], O RIGO Reeves, OPID [place], EDDC Gout (disorder) Resolved Problem 03/13/2020 [facility], O RIGO Reeves, OPID [place], EDDC Hyperlipidemia (disorder) Acti ve Problem 06/2020 [facility], O RIGO Reeves, CASSANDRA Ardon, EDCT Infectious disorder of kidney (disorder) Resolved Problem 03/13/2020 [facility], CASSANDRA Reeves, CASSANDRA Ardon, EDCT Obesity (disorder) Active Problem 03/13/2020 [facility], O RIGO Reeves, CASSANDRA Ardon, EDCT Right upper quadrant pain (finding) Active Problem 06/2020 [facility], Abril Reeves, CASSANDRA Ardon, EDCT Final: 10/11/2014 [facility] SHORTNESS OF BREATH Active [facility] RESPIRATORY ABNORM NEC Active [facility] ROUTINE MEDICAL EXAM Active [facility] DIARRHEA Active [facility] HEARTBURN Active [facility] CELLULITIS NOS Active [facility] ENCNTR FOR GENERAL ADULT MEDICAL EXAM W/ Active [facility] Medications Medication Details Route Status Patient Instructions Ordering Provider Order Date Source atorvastatin 10 mg oral tablet 10 mg = 1 tab, PO, Bedtime, # 30 tab, 0 Refill(s) Active 03/11/2020 [facility] pantoprazole 40 mg oral enteric coated tablet 40 mg = 1 tab, PO, BID, # 60 tab, 2 Refill(s), [facility] Active 12/03/2019 [facility] repaglinide 2 mg oral tablet 2 mg = 1 tab, PO, TID- Before Meals, # 270 tab, 0 Refill(s) Active 05/08/2019 [facility] 3 ML Insulin Glargine 100 UNT/ML Prefill ed Syringe [Lantus] 10 unit, SUB-Q, Daily, # 3 mL, 0 Refill(s) Active 05/08/2019 [facility] IRBESARTAN 75 mg oral tablet 0 Refill(s) Active 01/23/2019 [facility] irbesartan 150 mg oral tablet 150 mg = 1 tab, PO, Daily, # 30 tab, 0 Refill(s) Active 01/23/2019 [facility] repaglinide 1 mg oral tablet 1 mg = 1 tab, PO, TID- Before Meals, # 90 tab, 0 Refill(s) Active 12/12/2018 [facility] spironolactone 25 mg oral tablet 25 mg = 1 tab, PO, Daily, # 90 tab, 1 Refill(s) Active 12/12/2018 [facility] Vitamin B12 0 Refill(s) Active 12/12/2018 [facility] tramadol hydrochloride 50 MG Oral Tablet 50 mg = 1 tab, PO, Q8H, PRN Pain, # 60 tab, 0 Refill(s) Active 12/12/2018 [facility] sitagliptin 50 MG Oral Tablet [Januvia] 50 mg = 1 tab, PO, Daily, # 90 tab, 1 Refill(s) Active 12/12/2018 [facility] Metformin hydrochloride 500 MG Oral Tablet 500 mg = 1 tab, PO, BID-Meals, # 60 tab, 0 Refill(s) Active 12/12/2018 [facility] Diazepam 2 MG Oral Tablet [Valium] 2 mg = 1 tab, PO, Bedtime, PRN Pain Score 4-6, X 7 day, # 7 tab, 0 Refill(s) Active 03/08/2017 [facility] Coreg 25 mg, Route: PO, ONCE, Dosing Weight 79.545, kg, Start date: 03/08/17 7:08:00 CDT, Stop date: 03/08/17 7:08:00 CDT Inactive 03/08/2017 [facility] valsartan 160 mg, Route: PO, D rug form: TAB, ONCE, Dosing Weight 79.545, kg, Start date: 03/08/17 7:07:00 CDT, Stop date: 03/08/17 7:07:00 CDT, .. Inactive 03/08/2017 [facility] Nitroglycerin 0.02 MG/MG Topical Ointment 1 inch, Route: TOP, Drug Form: OINT, Dosing Weight 79.545, kg, ONCE, STAT, Start date: 03/08/17 6:05:00 CDT, Stop date: 03/08/17 6:05:00 CDT Inactive 03/08/2017 [facility] Acetaminophen 650 mg, Route: P O, Drug form: TAB, ONCE, Dosing Weight 79.545, kg, Priority: STAT, Start date: 03/08/17 6:05:00 CDT, Stop date: 03/08/17 6:05:00 CDT Inactive 03/08/2017 [facility] Aspirin 325 mg, Route: PO, Vneu g form: TAB, ONCE, Dosing Weight 79.545, kg, Priority: STAT, Start date: 03/08/17 4:35:00 CDT, Stop date: 03/08/17 4:35:00 CDT Inactive 03/08/2017 [facility] Nitroglycerin 0.4 mg, Route: S L, ONCE, Dosing Weight 79.545, kg, Priority: STAT, Start date: 03/08/17 4:35:00 CDT, Stop date: 03/08/17 4:35:00 CDT Inactive 03/08/2017 [facility] GoLYTELY oral powder for reconstitution See Instructions, Take as directed by physician., # 1 ea, 0 Refill(s), Pharmacy: [facility] [id number] Active 02/28/2016 [facility] pantoprazole 40 mg oral enteric coated tablet 40 mg = 1 tab, PO, Daily, # 30 tab, 11 Refill(s), Pharmacy: [facility] [id number] Active 01/31/2016 [facility] Potassium Chloride 8 MEQ Extended Release Tablet 8 mEq = 1 tab, PO, TID, # 30 tab, 0 Refill(s) Active 01/31/2016 [facility] isosorbide dinitrate 30 mg oral tablet 30 mg = 1 tab, PO, QID, # 120 tab, 0 Refill(s) Active 01/31/2016 [facility] glimepiride 4 mg oral tablet 4 mg = 1 tab, PO, Breakfast, # 30 tab, 0 Refill(s) Active 01/31/2016 [facility] remove patch 1 patch, Route: T OP, Daily, Drug form: ERFILM, Start date: 07/27/15 21:00:00, Duration: 30 day, Stop date: 08/25/15 21:00:00 Inactive 07/28/2015 [facility] Clonidine Hydrochloride 0.1 MG Oral Tablet 0.1 mg = 1 tab, PO, TID, 0 Refill(s) Active 07/27/2015 [facility] Dextrose 50% Syringe 25 gm, 50 mL, Route: IVP, Drug Form: INJ, Dosing Weight 80.636, kg, PRN, PRN Blood Glucose Results, Start date: 07/27/15 16:30:00, Duration: 30 day, Stop date: 08/26/15 16:29:00 Inactive 07/27/2015 [facility] Insulin, Aspart, Human Notes: Roll in palms of hands gently; Do not shake vigorously. (Same as: NovoLOG) "single patient use only" WASTE: F/P - Black; E - Municipal Trash Bin Stable for 28 days at room temperature. Expires in days from Date Inactive 07/27/2015 [facility] Glucagon 1 mg, Route: IM, Drug form: PDR/INJ, PRN, Dosing Weight 80.636, kg, PRN Blood Glucose Results, Start date: 07/27/15 16:30:00, Duration: 30 day, Stop date: 08/26/15 16:29:00 Inactive 07/27/2015 [facility] atorvastatin 10 mg oral tablet 10 mg = 1 tab, PO, Bedtime Active 07/27/2015 [facility] allopurinol 100 mg oral tablet 100 mg = 1 tab, PO, BID Active 07/27/2015 [facility] valsartan 160 mg oral tablet 1 60 mg = 1 tab, PO, BID Active 07/27/2015 [facility] carvedilol 25 mg oral tablet 2 5 mg = 1 tab, PO, BID Active 07/27/2015 [facility] Vitamin D3 Notes: Same as: Vit ocampo D3 Inactive 07/27/2015 [facility] Aspirin Notes: Do not crush or chew. (Same As: Ecotrin) Inactive 07/27/2015 [facility] Lasix Notes: (Same as: Lasix) May cause GI upset. Give with food or milk. Inactive 07/27/2015 [facility] potassium chloride Notes: ([facility] e as: K-Dur 10) "Do Not Crush" With food and full glass of water Inactive 07/27/2015 [facility] Lidocaine Hydrochloride 0.05 MG/MG Trans dermal Patch [Lidoderm] Notes: (Same as: Lidoderm) Inactive 07/27/2015 [facility] Protonix Notes: Tablet should not be chewed or crushed. (Same as: Protonix) Inactive 07/27/2015 [facility] heparin sodium, porcine 2500 UNT/ML Injectable Solutio n Notes: porcine heparin Inactiv e 07/27/2015 [facility] atorvastatin Notes: (Same As: Lipitor) No Longer Active 07/27/2015 [facility] carvedilol Notes: Give with fo od. (Same As: Coreg) No Longer Active 07/27/2015 [facility] potassium chloride Notes: (Alex e as: K-Dur 20) "Do Not Crush" With food and full glass of water Inactive 07/27/2015 [facility] valsartan Notes: Same as Diovan No Longer Active 07/26/2015 [facility] Glyburide Notes: (Same as: Evan ronporfirio Diabeta) Take with meals. No Longer Active 07/26/2015 [facility] Magnesium Sulfate Notes: WASTE : F/P - Sink; E - Municipal Trash Bin Inactive 07/26/2015 [facility] Allopurinol Notes: (Same as: Z yloprim) No Longer Active 07/26/2015 [facility] Clonidine Hydrochloride 0.1 MG Oral Tablet Notes: (Same As: Catapres) No Longer Active 07/26/2015 [facility] Furosemide Notes: (Same as: La six) May cause GI upset. Give with food or milk. Inactive 07/26/2015 [facility] Magnesium Sulfate Notes: (Same as: MgSO4) WASTE: F/P - Sink; E - Municipal Trash Bin MEDICATION WASTE Product Size: 1000 mg Product Wasted: ___ mg Inactive 07/26/2015 [facility] Aspirin Notes: Take with food. Inactive 07/26/2015 [facility] clindamycin 300 mg oral capsule 300 mg = 1 cap, PO, Q6H, # 20 cap, 0 Refill(s) Active 10/09/2014 [facility] Colchicine 0.6 MG Oral Tablet 0.6 mg, PO, Daily, # 6 tab, 0 Refill(s) Active 10/09/2014 [facility] Doxycycline 100 MG Oral Capsule 100 mg = 1 tab, PO, [id number], # 14 tab, 0 Refill(s) Active 10/09/2014 [facility] Doxycycline 100 MG Oral Capsule Notes: NO MILK/ANTACIDS/IRON Take 1 hour before or 2 hours after dairy products No Longer Active 10/09/2014 [facility] Colchicine 0.6 mg, 1 tab, Rout e: PO, Drug form: TAB, ONCE, Dosing Weight 80, kg, Start date: 10/08/14 19:15:00, Stop date: 10/08/14 19:15:00 Inactive 10/09/2014 [facility] Colchicine 1.2 mg, 2 tab, Rout e: PO, Drug form: TAB, ONCE, Dosing Weight 80, kg, Start date: 10/08/14 18:15:00, Stop date: 10/08/14 18:15:00 Inactive 10/08/2014 [facility] Docusate Notes: (Same as: Cola ce) No Longer Active 10/07/2014 [facility] Potassium Chloride 20 MEQ Extended Release Tablet Notes: (Same as: K-Dur 20) With food and full glass of water No Longer Active 10/07/2014 [facility] pantoprazole Notes: (Same as: Protonix) No Longer Active 10/07/2014 [facility] Nifedical XL Notes: (Same as: Adalat CC, Procardia XL) Give on empty stomach. Take 1 hour before or 2 hours after meal; "Avoid grapefruit and grapefruit juice". Do not crush No Longer Active 10/07/2014 [facility] Bystolic Notes: (same as: Byst olic) No Longer Active 10/07/2014 [facility] Hydrochlorothiazide 25 MG / Triamterene 37.5 MG Oral Tablet Notes: (triamterene-hydrochlorothiazide 37.5-25 mg TAB) (Same As: Maxzide- 25) No Longer Active 10/07/2014 [facility] Aspirin Notes: Do not crush or chew. (Same As: Ecotrin) No Longer Active 10/07/2014 [facility] Miralax Notes: Dissolve in 8 o z of water or juice. (Same as: Miralax) No Longer Active 10/07/2014 [facility] Magnesium Sulfate 2 gm, 50 mL, Route: IVPB, Drug form: INJ, Q2H, Dosing Weight 80, kg, Total dose = 4 gm, Start date: 10/07/14 4:00:00, Duration: 2 doses or times, Stop date: 10/07/14 6:00:00 Inactive 10/07/2014 [facility] 168 HR Clonidine 0.0125 MG/HR Transdermal Patch Notes: Patch delivers 0.3 mg/24 hours; Patch is applied weekly. [id number]. No Longer Active 10/07/2014 [facility] tramadol hydrochloride 50 MG Oral Tablet Notes: . (Same As: Ultram) No Longer Active 10/07/2014 [facility] Hydrochlorothiazide 25 MG / Triamterene 37.5 MG Oral Tablet 1 tab, PO, Daily, # 30 tab, 0 Refill(s) Active 10/07/2014 [facility] 168 HR Clonidine 0.0125 MG/HR Transdermal Patch 1 patch, TOP, Q7D, # 12 patch, 0 Refill(s) Active 10/07/2014 [facility] NS 1,000 mL 1,000 mL, Rate: 75 ml/hr, Infuse over: 13.3 hr, Route: IV, Dosing Weight 80 kg, Total Volume: 1,000, Start date: 10/07/14 1:03:00, Duration: 30 day, Stop date: 11/06/14 1:02:00 No Longer Active 10/07/2014 [facility] potassium chloride Notes: ([facility] e as: KCL) Infuse no faster than 10 mEq/hr if given peripherally. Inactive 10/07/2014 [facility] potassium chloride Notes: (Alex e as: K-Dur 20) "Do Not Crush" With food and full glass of water Inactive 10/07/2014 [facility] Clindamycin Notes: (clindamyci n 150 mg/1 ml (600 mg/4 ml VL) INJ) (Same As: Cleocin) No Longer Active 10/07/2014 [facility] heparin Notes: porcine heparin No Longer Active 10/07/2014 [facility] Insulin, Aspart, Human Notes: Roll [...] date: 11/05/14 22:24:00 No Longer Active 10/07/2014 [facility] Dextrose 50% Syringe 25 gm, 50 mL, Route: IVP, Drug Form: INJ, Dosing Weight 80, kg, PRN, PRN Blood Glucose Results, Start date: 10/06/14 22:25:00, Duration: 30 day, Stop date: 11/05/14 22:24:00 No Longer Active 10/07/2014 [facility] Ondansetron Notes: (Same as: Mike stafford) MEDICATION WASTE Product Size: 4 mg Product Wasted: ___ mg No Longer Active 10/07/2014 [facility] Acetaminophen 325 MG / Hydrocodone Janet trate 5 MG Oral Tablet Notes: (Same as: [place] 325/5) Do not ex ceed 4gm/day of acetaminophen. No Longer Active 10/07/2014 [facility] Acetaminophen Notes: Do not ex ceed 4 gm/day. (Same as: Tylenol) No Longer Active 10/07/2014 [facility] 24 HR Nifedipine 60 MG Extended Release Tablet [Nifedical] 60 mg = 1 tab, PO, Daily, 0 Refill(s) Active 10/07/2014 [facility] glyBURIDE 2.5 mg oral tablet 2 .5 mg = 1 tab, PO, BID, 0 Refill(s) Active 10/07/2014 [facility] Potassium Chloride 20 MEQ Extended Release Tablet 20 mEq = 1 tab, PO, Daily, 0 Refill(s) Active 10/07/2014 [facility] Furosemide 40 MG Oral Tablet 4 0 mg = 1 tab, PO, Daily, 0 Refill(s) Active 10/07/2014 [facility] POLYETHYLENE GLYCOL 3350 60 MG/ML / Pota ssium Chloride 0.01 MEQ/ML / Sodium Bicarbonate 0.02 MEQ/ML / Sodium Chloride 0.025 MEQ/ML / sodium sulfate 0.04 MEQ/ML Oral Solution [Golytely] 240 ml, PO, Q10Min, # 1 ea, 0 Refill(s), Pharmacy: [facility] [id number] Active 11/17/2013 [facility] Vitamin D3 0 Refill(s) Active 11/17/2013 [facility] losartan 100 mg oral tablet 0 Refill(s) Active 11/17/2013 [facility] Biotin 0 Refill(s) Active 11/17/2013 [facility] pantoprazole 40 mg oral enteric coated tablet 0 Refill(s) Active 11/17/2013 [facility] Aspirin Low Dose 81 mg oral tablet 0 Refill(s) Active 11/17/2013 [facility] Clonidine Hydrochloride 0.3 MG Oral Tablet 0 Refill(s) Active 11/17/2013 [facility] Triamterene 0 Refill(s) Active 11/17/2013 [facility] nebivolol 20 MG Oral Tablet [Bystolic] 0 Refill(s) Active 11/17/2013 [facility] Estrace 0.1 MG/GM Vaginal Cream ; Start Date: 05/21/2013 (Active) Active 05/21/2013 [facility] Murine Tears Plus ophthalmic drops 1 drp, LEFT EYE, TID, 1 btl, Substitute Allowed LEFT EYE Active [facility] 08/20/2011 [facility] predniSONE 50 mg oral tablet 5 0 mg, 1 tab, PO, Daily, 5 tab, Substitution Allowed, TAB PO Active [facility] 08/20/2011 [facility] acyclovir 400 mg oral tablet 4 00 mg, 1 tab, PO, 5X Day, 35 tab, Substitution Allowed, TAB PO Active [facility] 08/20/2011 [facility] proparacaine ophthalmic 0.5% solution 1 drp, Route: BOTH EYES, ONCE, Drug form: SOLN, Priority: STAT, Start date: 08/19/11 22:24:00, Stop date: 08/19/11 22:24:00 BOTH EYES No Longer Active [facility] 08/20/2011 [facility] fluorescein ophthalmic 1 mg test 1 strip, Route: BOTH EYES, ONCE, Drug form: STRIP, Start date: 08/19/11 22:23:00, Stop date: 08/19/11 22:23:00 BOTH EYES No Longer Active [facility] 08/20/2011 [facility] Bystolic 5 MG Oral Tablet (Ac [...] adverse reacti ons to substance Active 07/05/2001 [facility] Penicillins drug allergy drug allergy Active [facility] Levaquin TABS drug allergy drug allergy Active [facility] Iodine SOLN drug allergy drug allergy Active [facility] Vicodin TABS drug allergy drug allergy Active [facility] Levaquin Assertion reaction to sun Drug allergy Active [facility] iodine Assertion Drug allergy Active [facility] Vicodin Assertion Drug allergy Active [facility] predniSONE Assertion Drug allergy Active [facility] Immunizations No Data Provided for This Section Results Order Name Results Value Reference Range Date Interpretation Comments Source CARDIAC ENZYMES Troponin-I <0.02 0.00 - 0.40 03/08/2017 [facility] ELECTROLYTES AGAP 11.2 10.0 - 20.0 03/08/2017 [facility] ELECTROLYTES BUN 17 7 - 22 03/08/2017 [facility] ELECTROLYTES Creatinine Lvl 1.0 1 0.50 - 1.40 03/08/2017 [facility] ELECTROLYTES Sodium Lvl 145 135 - 145 03/08/2017 [facility] ELECTROLYTES Potassium Lvl 4.2 3.5 - 5.1 03/08/2017 [facility] ELECTROLYTES Calcium Lvl 9.3 8.5 - 10.5 03/08/2017 [facility] ELECTROLYTES Chloride Lvl 109 95 - 109 03/08/2017 [facility] ELECTROLYTES CO2 29 24 - 32 03/08/2017 [facility] ELECTROLYTES Glucose Lvl 121 70 - 99 03/08/2017 [facility] ELECTROLYTES eGFR 52 03/08/2017 Result [...] should be multiplied by the estimated BMI. [facility] HEMATOLOGY Segs 66.7 45.0 - 75.0 03/08/2017 [facility] HEMATOLOGY Lymphocytes 19.8 20.0 - 40.0 03/08/2017 [facility] HEMATOLOGY Monocytes 8.8 2.0 - 12.0 03/08/2017 [facility] HEMATOLOGY Monocytes # 0.7 0.0 - 0.8 03/08/2017 [facility] HEMATOLOGY Basophils 0.5 0.0 - 1.0 03/08/2017 [facility] HEMATOLOGY Eosinophils 4.2 0.0 - 4.0 03/08/2017 [facility] HEMATOLOGY Segs-Bands # 5.0 1.5 - 8.1 03/08/2017 [facility] HEMATOLOGY Eosinophils # 0.3 0.0 - 0.5 03/08/2017 [facility] HEMATOLOGY Lymphocytes # 1.5 1.0 - 5.5 03/08/2017 [facility] HEMATOLOGY MCHC 31.5 32.0 - 36.0 03/08/2017 [facility] HEMATOLOGY MPV 8.1 7.4 - 10.4 03/08/2017 [facility] HEMATOLOGY Platelet 198 133 - 450 03/08/2017 [facility] HEMATOLOGY RDW 15.3 11.5 - 14.5 03/08/2017 [facility] HEMATOLOGY Hct 32.8 36.0 - 48.0 03/08/2017 [facility] HEMATOLOGY MCV 83.2 80.0 - 98.0 03/08/2017 [facility] HEMATOLOGY MCH 26.2 27.0 - 31.0 03/08/2017 [facility] HEMATOLOGY Hgb 10.3 12.0 - 16.0 03/08/2017 [facility] HEMATOLOGY RBC 3.95 4.20 - 5.40 03/08/2017 [facility] HEMATOLOGY WBC 7.6 3.7 - 10.4 03/08/2017 [facility] CHEM PANEL Magnesium Lvl 2.1 1.8 - 2.4 07/27/2015 [facility] CHEM PANEL Phosphorus 4.3 2.5 - 4.5 07/27/2015 [facility] CHEM PANEL BUN 26 7 - 22 07/27/2015 [facility] CHEM PANEL Glucose Lvl 150 70 - 99 07/27/2015 [facility] CHEM PANEL Chloride Lvl 107 95 - 109 07/27/2015 [facility] CHEM PANEL Potassium Lvl 4.1 3.5 - 5.1 07/27/2015 [facility] CHEM PANEL Calcium Lvl 8.6 8.5 - 10.5 07/27/2015 [facility] CHEM PANEL Creatinine Lvl 1.26 0.50 - 1.40 07/27/2015 [facility] CHEM PANEL Sodium Lvl 144 135 - 145 07/27/2015 [facility] CHEM PANEL CO2 30 24 - 32 07/27/2015 [facility] CHEM PANEL AGAP 11.1 10.0 - 20.0 07/27/2015 [facility] CHEM PANEL eGFR 40 07/27/2015 [...] should be multiplied by the estimated BMI. [facility] CARDIAC ENZYMES Troponin-T <0.010 0.000 - 0.100 07/27/2015 [facility] CARDIAC ENZYMES Troponin-I <0.02 0.00 - 0.40 07/27/2015 [facility] CARDIAC ENZYMES Total CK 109 12 - 191 07/27/2015 [facility] CARDIAC ENZYMES CK MB 1.7 0.5 - 3.6 07/27/2015 [facility] CARDIAC ENZYMES CK MB Index 1.6 0.0 - 2.5 07/27/2015 [facility] CHEM PANEL Magnesium Lvl 1.7 1.8 - 2.4 07/27/2015 [facility] CHEM PANEL eGFR 42 07/27/2015 [...] should be multiplied by the estimated BMI. [facility] CHEM PANEL Calcium Lvl 9.1 8.5 - 10.5 07/27/2015 [facility] CHEM PANEL AGAP 13.4 10.0 - 20.0 07/27/2015 [facility] CHEM PANEL CO2 27 24 - 32 07/27/2015 [facility] CHEM PANEL Chloride Lvl 108 95 - 109 07/27/2015 [facility] CHEM PANEL Potassium Lvl 3.4 3.5 - 5.1 07/27/2015 [facility] CHEM PANEL Sodium Lvl 145 135 - 145 07/27/2015 [facility] CHEM PANEL Creatinine Lvl 1.22 0.50 - 1.40 07/27/2015 [facility] CHEM PANEL Glucose Lvl 83 70 - 99 07/27/2015 [facility] CHEM PANEL BUN 22 7 - 22 07/27/2015 [facility] LIPIDS VLDL 31 07/27/2015 [facility] LIPIDS LDL (Calculated) 30 <=99 mg/dL 07/27/2015 [facility] LIPIDS Chol 123 <=199 mg/dL 07/27/2015 [facility] LIPIDS HDL 62 >=61 mg/dL 07/27/2015 [facility] LIPIDS CHD Risk 1.98 3.90 - 5.80 07/27/2015 [facility] LIPIDS Trig 155 <=149 mg/dL 07/27/2015 [facility] SPECIAL CHEMISTRY Hgb A1C 8.1 <=5.6 % 07/27/2015 [facility] CARDIAC ENZYMES Total CK 104 12 - 191 07/26/2015 [facility] CARDIAC ENZYMES Troponin-I <0.02 0.00 - 0.40 07/26/2015 [facility] CHEM PANEL Lipase Lvl 237 73 - 393 07/26/2015 [facility] CHEM PANEL Magnesium Lvl 1.6 1.8 - 2.4 07/26/2015 [facility] CHEM PANEL Phosphorus 3.7 2.5 - 4.5 07/26/2015 [facility] CHEM PANEL eGFR 37 07/26/2015 [...] should be multiplied by the estimated BMI. [facility] CHEM PANEL Chloride Lvl 105 95 - 109 07/26/2015 [facility] CHEM PANEL CO2 31 24 - 32 07/26/2015 [facility] CHEM PANEL Calcium Lvl 9.5 8.5 - 10.5 07/26/2015 [facility] CHEM PANEL BUN 23 7 - 22 07/26/2015 [facility] CHEM PANEL Glucose Lvl 206 70 - 99 07/26/2015 [facility] CHEM PANEL Potassium Lvl 4.4 3.5 - 5.1 07/26/2015 [facility] CHEM PANEL Creatinine Lvl 1.35 0.50 - 1.40 07/26/2015 [facility] CHEM PANEL Sodium Lvl 143 135 - 145 07/26/2015 [facility] CHEM PANEL Bili Total 0.5 0.2 - 1.3 07/26/2015 [facility] CHEM PANEL Albumin Lvl 3.7 3.5 - 5.0 07/26/2015 [facility] CHEM PANEL AST 19 0 - 37 07/26/2015 [facility] CHEM PANEL Alk Phos 113 39 - 136 07/26/2015 [facility] CHEM PANEL ALT 26 0 - 65 07/26/2015 [facility] CHEM PANEL Total Protein 7.3 6.4 - 8.4 07/26/2015 [facility] CHEM PANEL AGAP 11.4 10.0 - 20.0 07/26/2015 [facility] CHEM PANEL B/C Ratio 17 6 - 25 07/26/2015 [facility] CHEM PANEL Globulin 3.6 2.0 - 4.0 07/26/2015 [facility] CHEM PANEL A/G Ratio 1.0 0.7 - 1.6 07/26/2015 [facility] CHEM PANEL Lactic Acid Lvl 1.2 0.5 - 2.2 07/26/2015 [facility] HEMATOLOGY Lymphocytes 18.5 20.0 - 40.0 07/26/2015 [facility] HEMATOLOGY Monocytes 6.3 2.0 - 12.0 07/26/2015 [facility] HEMATOLOGY Eosinophils 3.6 0.0 - 4.0 07/26/2015 [facility] HEMATOLOGY Segs 71.1 45.0 - 75.0 07/26/2015 [facility] HEMATOLOGY Basophils 0.5 0.0 - 1.0 07/26/2015 [facility] HEMATOLOGY Segs-Bands # 5.4 1.5 - 8.1 07/26/2015 [facility] HEMATOLOGY Lymphocytes # 1.4 1.0 - 5.5 07/26/2015 [facility] HEMATOLOGY Monocytes # 0.5 0.0 - 0.8 07/26/2015 [facility] HEMATOLOGY Eosinophils # 0.3 0.0 - 0.5 07/26/2015 [facility] HEMATOLOGY MPV 8.5 7.4 - 10.4 07/26/2015 [facility] HEMATOLOGY Platelet 201 133 - 450 07/26/2015 [facility] HEMATOLOGY RDW 14.2 11.5 - 14.5 07/26/2015 [facility] HEMATOLOGY MCV 87.8 80.0 - 98.0 07/26/2015 [facility] HEMATOLOGY Hct 37.2 36.0 - 48.0 07/26/2015 [facility] HEMATOLOGY MCH 27.5 27.0 - 31.0 07/26/2015 [facility] HEMATOLOGY Hgb 11.7 12.0 - 16.0 07/26/2015 [facility] HEMATOLOGY MCHC 31.3 32.0 - 36.0 07/26/2015 [facility] HEMATOLOGY RBC 4.24 4.20 - 5.40 07/26/2015 [facility] HEMATOLOGY WBC 7.7 3.7 - 10.4 07/26/2015 [facility] HEMATOLOGY INR 0.94 0.85 - 1.17 07/26/2015 [facility] HEMATOLOGY PT 12.9 12.0 - 14.7 07/26/2015 [facility] URINE AND STOOL UA Turbidity Clear (07/26/15 1:02 PM) Clear 07/26/2015 [facility] URINE AND STOOL UA Spec Grav 1.010 <=1.030 07/26/2015 [facility] URINE AND STOOL UA Color Yellow *NA* (07/26/15 1:02 PM) Yellow 07/26/2015 [facility] URINE AND STOOL UA Leuk Est Negative (07/26/15 1:02 PM) Negative 07/26/2015 [facility] URINE AND STOOL UA Blood Negative (07/26/15 1:02 PM) Negative 07/26/2015 [facility] URINE AND STOOL UA Protein Negative mg/dL Negative mg/dL 07/26/2015 [facility] URINE AND STOOL UA Glucose Negative mg/dL Negative mg/dL 07/26/2015 [facility] URINE AND STOOL UA Urobilinogen 0.2 0.1 - 1.0 07/26/2015 [facility] URINE AND STOOL UA Nitrite Negative (07/26/15 1:02 PM) Negative 07/26/2015 [facility] URINE AND STOOL UA Ketones Negative mg/dL Negative mg/dL 07/26/2015 [facility] URINE AND STOOL UA Bili Negative *NA* (07/26/15 1:02 PM) Negative 07/26/2015 [facility] URINE AND STOOL UA pH 6.5 5.0 - 8.0 07/26/2015 [facility] URINE AND STOOL UA RBC None Seen (07/26/15 1:02 PM) 0 - 2 07/26/2015 [facility] URINE AND STOOL UA WBC None Seen (07/26/15 1:02 PM) None Seen 07/26/2015 [facility] URINE AND STOOL UA Bacteria None Seen (07/26/15 1:02 PM) None Seen 07/26/2015 [facility] URINE AND STOOL UA Sq Epi Rare /LPF Few /LPF 07/26/2015 [facility] ELECTROLYTES AGAP 10.8 10.0 - 20.0 10/09/2014 [facility] ELECTROLYTES eGFR 30 10/09/2014 <sup>3</sup>Result [...] should be multiplied by the estimated BMI. [facility] ELECTROLYTES Potassium Lvl 3.8 3.5 - 5.1 10/09/2014 [facility] ELECTROLYTES Sodium Lvl 143 135 - 145 10/09/2014 [facility] ELECTROLYTES CO2 29 24 - 32 10/09/2014 [facility] ELECTROLYTES Chloride Lvl 107 95 - 109 10/09/2014 [facility] ELECTROLYTES Creatinine Lvl 1.6 0.5 - 1.4 10/09/2014 [facility] ELECTROLYTES BUN 26 7 - 22 10/09/2014 [facility] ELECTROLYTES Glucose Lvl 96 70 - 99 10/09/2014 <sup>6</sup>Interpretive Data: Adult ref erence range values reflect the clinical guidelines
of the [place] [employer]. [facility] ELECTROLYTES Calcium Lvl 8.6 8.5 - 10.5 10/09/2014 [facility] HEMATOLOGY RDW 13.6 11.5 - 14.5 10/09/2014 [facility] HEMATOLOGY Platelet 203 133 - 450 10/09/2014 [facility] HEMATOLOGY MPV 9.1 7.4 - 10.4 10/09/2014 [facility] HEMATOLOGY Hgb 10.7 12.0 - 16.0 10/09/2014 [facility] HEMATOLOGY Hct 32.5 36.0 - 48.0 10/09/2014 [facility] HEMATOLOGY MCV 85.0 80.0 - 98.0 10/09/2014 [facility] HEMATOLOGY MCH 28.0 27.0 - 31.0 10/09/2014 [facility] HEMATOLOGY MCHC 32.9 32.0 - 36.0 10/09/2014 [facility] HEMATOLOGY WBC 7.1 3.7 - 10.4 10/09/2014 [facility] HEMATOLOGY RBC 3.82 4.20 - 5.40 10/09/2014 [facility] HEMATOLOGY Monocytes 9.4 2.0 - 12.0 10/09/2014 [facility] HEMATOLOGY Eosinophils 5.0 0.0 - 4.0 10/09/2014 [facility] HEMATOLOGY Basophils 0.6 0.0 - 1.0 10/09/2014 [facility] HEMATOLOGY Segs-Bands # 4.4 1.5 - 8.1 10/09/2014 [facility] HEMATOLOGY Lymphocytes # 1.7 1.0 - 5.5 10/09/2014 [facility] HEMATOLOGY Segs 61.0 45.0 - 75.0 10/09/2014 [facility] HEMATOLOGY Lymphocytes 24.0 20.0 - 40.0 10/09/2014 [facility] HEMATOLOGY Eosinophils # 0.4 0.0 - 0.5 10/09/2014 [facility] HEMATOLOGY Monocytes # 0.7 0.0 - 0.8 10/09/2014 [facility] CHEM PANEL eGFR 36 10/07/2014 [...] should be multiplied by the estimated BMI. [facility] CHEM PANEL Chloride Lvl 100 95 - 109 10/07/2014 [facility] CHEM PANEL Potassium Lvl 3.9 3.5 - 5.1 10/07/2014 <sup>1</sup>Result Comment: Specimen Sli ghtly Hemolyzed. [facility] CHEM PANEL Sodium Lvl 138 135 - 145 10/07/2014 [facility] CHEM PANEL Creatinine Lvl 1.4 0.5 - 1.4 10/07/2014 [facility] CHEM PANEL BUN 32 7 - 22 10/07/2014 [facility] CHEM PANEL Calcium Lvl 8.9 8.5 - 10.5 10/07/2014 [facility] CHEM PANEL AGAP 13.9 10.0 - 20.0 10/07/2014 [facility] CHEM PANEL CO2 28 24 - 32 10/07/2014 [facility] CHEM PANEL Glucose Lvl 106 70 - 99 10/07/2014 <sup>7</sup>Interpretive Data: Adult ref erence range values reflect the clinical guidelines
of the [place] [employer]. [facility] HEMATOLOGY RBC 4.32 4.20 - 5.40 10/07/2014 [facility] HEMATOLOGY Hct 37.1 36.0 - 48.0 10/07/2014 [facility] HEMATOLOGY WBC 8.7 3.7 - 10.4 10/07/2014 [facility] HEMATOLOGY Hgb 12.2 12.0 - 16.0 10/07/2014 [facility] HEMATOLOGY MCV 85.8 80.0 - 98.0 10/07/2014 [facility] HEMATOLOGY Platelet 163 133 - 450 10/07/2014 [facility] HEMATOLOGY MCH 28.2 27.0 - 31.0 10/07/2014 [facility] HEMATOLOGY MCHC 32.9 32.0 - 36.0 10/07/2014 [facility] HEMATOLOGY RDW 13.5 11.5 - 14.5 10/07/2014 [facility] HEMATOLOGY MPV 9.6 7.4 - 10.4 10/07/2014 [facility] HEMATOLOGY Monocytes 9.0 2.0 - 12.0 10/07/2014 [facility] HEMATOLOGY Eosinophils 3.3 0.0 - 4.0 10/07/2014 [facility] HEMATOLOGY Basophils 0.6 0.0 - 1.0 10/07/2014 [facility] HEMATOLOGY Lymphocytes # 1.4 1.0 - 5.5 10/07/2014 [facility] HEMATOLOGY Segs 71.0 45.0 - 75.0 10/07/2014 [facility] HEMATOLOGY Lymphocytes 16.1 20.0 - 40.0 10/07/2014 [facility] HEMATOLOGY Segs-Bands # 6.2 1.5 - 8.1 10/07/2014 [facility] HEMATOLOGY Monocytes # 0.8 0.0 - 0.8 10/07/2014 [facility] HEMATOLOGY Eosinophils # 0.3 0.0 - 0.5 10/07/2014 [facility] CHEM PANEL Magnesium Lvl 1.5 1.8 - 2.4 10/07/2014 [facility] CHEM PANEL eGFR 23 10/07/2014 [...] should be multiplied by the estimated BMI. [facility] CHEM PANEL Bili Total 0.6 0.2 - 1.3 10/07/2014 [facility] CHEM PANEL Chloride Lvl 97 95 - 109 10/07/2014 [facility] CHEM PANEL Potassium Lvl 2.9 3.5 - 5.1 10/07/2014 <sup>2</sup>Result Comment: Critical Res ult(s) called to jina padilla at 10/07/2014 00:04 by maris. Read back OK. [facility] CHEM PANEL Globulin 4.0 2.0 - 4.0 10/07/2014 [facility] CHEM PANEL A/G Ratio 0.8 0.7 - 1.6 10/07/2014 [facility] CHEM PANEL ALT 24 0 - 65 10/07/2014 [facility] CHEM PANEL Alk Phos 77 39 - 136 10/07/2014 [facility] CHEM PANEL AST 14 0 - 37 10/07/2014 [facility] CHEM PANEL Glucose Lvl 193 70 - 99 10/07/2014 <sup>8</sup>Interpretive Data: Adult ref erence range values reflect the clinical guidelines
of the [place] [employer]. [facility] CHEM PANEL B/C Ratio 18 6 - 25 10/07/2014 [facility] CHEM PANEL Calcium Lvl 8.9 8.5 - 10.5 10/07/2014 [facility] CHEM PANEL Albumin Lvl 3.3 3.5 - 5.0 10/07/2014 [facility] CHEM PANEL AGAP 13.9 10.0 - 20.0 10/07/2014 [facility] CHEM PANEL CO2 28 24 - 32 10/07/2014 [facility] CHEM PANEL Sodium Lvl 136 135 - 145 10/07/2014 [facility] CHEM PANEL Creatinine Lvl 2.0 0.5 - 1.4 10/07/2014 [facility] CHEM PANEL BUN 35 7 - 22 10/07/2014 [facility] CHEM PANEL Total Protein 7.3 6.4 - 8.4 10/07/2014 [facility] CHEM PANEL Uric Acid 11.1 2.5 - 7.0 10/07/2014 [facility] HEMATOLOGY Platelet 211 133 - 450 10/07/2014 [facility] HEMATOLOGY RDW 13.4 11.5 - 14.5 10/07/2014 [facility] HEMATOLOGY MCHC 33.6 32.0 - 36.0 10/07/2014 [facility] HEMATOLOGY MPV 8.6 7.4 - 10.4 10/07/2014 [facility] HEMATOLOGY RBC 4.15 4.20 - 5.40 10/07/2014 [facility] HEMATOLOGY WBC 10.5 3.7 - 10.4 10/07/2014 [facility] HEMATOLOGY MCV 85.5 80.0 - 98.0 10/07/2014 [facility] HEMATOLOGY Hgb 11.9 12.0 - 16.0 10/07/2014 [facility] HEMATOLOGY Hct 35.5 36.0 - 48.0 10/07/2014 [facility] HEMATOLOGY MCH 28.7 27.0 - 31.0 10/07/2014 [facility] HEMATOLOGY INR 1.08 0.85 - 1.17 10/07/2014 <sup>9</sup>Interpretive Data: RECOMMEND ED RANGES FOR PROTIME INR:
2.0-3.0 for most medical and surgical thromboembolic states.
2.5-3.5 for artificial heart valves and recurrent embolism.

INR SHOULD BE USED ONLY FOR PATIENTS ON STABLE ANTICOAGULANT THERAPY. [facility] HEMATOLOGY PT 14.1 12.0 - 14.7 10/07/2014 [facility] HEMATOLOGY PTT 33.7 22.9 - 35.8 10/07/2014 <sup>10</sup>Interpretive Data: Heparin Therapeutic Range: 57 - 92 Seconds [facility] HEMATOLOGY Segs 73.3 45.0 - 75.0 10/07/2014 [facility] HEMATOLOGY Eosinophils 1.5 0.0 - 4.0 10/07/2014 [facility] HEMATOLOGY Lymphocytes 17.1 20.0 - 40.0 10/07/2014 [facility] HEMATOLOGY Basophils 0.5 0.0 - 1.0 10/07/2014 [facility] HEMATOLOGY Monocytes 7.6 2.0 - 12.0 10/07/2014 [facility] HEMATOLOGY Segs-Bands # 7.7 1.5 - 8.1 10/07/2014 [facility] HEMATOLOGY Lymphocytes # 1.8 1.0 - 5.5 10/07/2014 [facility] HEMATOLOGY Eosinophils # 0.2 0.0 - 0.5 10/07/2014 [facility] HEMATOLOGY Monocytes # 0.8 0.0 - 0.8 10/07/2014 [facility] HEMATOLOGY Basophils # 0.1 0.0 - 0.2 10/07/2014 [facility] URINALYSIS UA Nitrite Negat alisha (05/13/2013 20:29:00) Negati ve 05/14/2013 Normal [facility] URINALYSIS UA Urobilinogen 0.2 0.1 - 1.0 05/14/2013 Normal [facility] URINALYSIS UA Leuk Est Trace *ABN* (05/13/2013 20:29:00) Negati ve 05/14/2013 ABN [facility] URINALYSIS UA Ketones Negat alisha *NA* (05/13/2013 20:29:00) Negati ve 05/14/2013 [facility] URINALYSIS UA Blood Small *ABN* (05/13/2013 20:29:00) Negati ve 05/14/2013 ABN [facility] URINALYSIS UA Bili Negat alisha *NA* (05/13/2013 20:29:00) Negati ve 05/14/2013 [facility] URINALYSIS UA Protein Negat alisha (05/13/2013 20:29:00) Negati ve 05/14/2013 Normal [facility] URINALYSIS UA pH 6.0 5.0 - 8.0 05/14/2013 Normal [facility] URINALYSIS UA Color Yello w *NA* (05/13/2013 20:29:00) Yellow 05/14/2013 [facility] URINALYSIS UA Glucose Negat alisha (05/13/2013 20:29:00) Negati ve 05/14/2013 Normal [facility] URINALYSIS UA Spec Grav 1.015 <=1.030 05/14/2013 Normal [facility] URINALYSIS UA Turbidity Clear (05/13/2013 20:29:00) Clear 05/14/2013 Normal [facility] URINALYSIS UA Bacteria Occas ional /HPF None Seen 05/14/2013 Normal [facility] URINALYSIS UA Mucus None Seen (05/13/2013 20:29:00) None S een 05/14/2013 Normal [facility] URINALYSIS UA RBC 11-20 /HPF 0 - 2 05/14/2013 ABN [facility] URINALYSIS UA WBC 3-5 /HPF None Seen 05/14/2013 Normal [facility] URINALYSIS UA Sq Epi Few /LPF Few 05/14/2013 Normal [facility] URINALYSIS Micro? Perfo rmed (05/13/2013 15:00:48) 05/13/2013 Normal [facility] URINALYSIS UA pH 6.0 5.0 - 8.0 05/13/2013 Normal [facility] URINALYSIS UA Glucose Negat alisha (05/13/2013 15:00:48) Negati ve 05/13/2013 Normal [facility] URINALYSIS UA Ketones Negat alisha *NA* (05/13/2013 15:00:48) Negati ve 05/13/2013 [facility] URINALYSIS UA Protein Negat alisha (05/13/2013 15:00:48) Negati ve 05/13/2013 Normal [facility] URINALYSIS UA Color Yello w *NA* (05/13/2013 15:00:48) Yellow 05/13/2013 [facility] URINALYSIS UA Turbidity Clear (05/13/2013 15:00:48) Clear 05/13/2013 Normal [facility] URINALYSIS UA Spec Grav 1.005 <=1.030 05/13/2013 Normal [facility] URINALYSIS UA Bili Negat alisha *NA* (05/13/2013 15:00:48) Negati ve 05/13/2013 [facility] URINALYSIS UA Blood Moder ate *ABN* (05/13/2013 15:00:48) Negati ve 05/13/2013 ABN [facility] URINALYSIS UA Leuk Est Negat alisha (05/13/2013 15:00:48) Negati ve 05/13/2013 Normal [facility] URINALYSIS UA Nitrite Negat alisha (05/13/2013 15:00:48) Negati ve 05/13/2013 Normal [facility] URINALYSIS UA Urobilinogen 0.2 0.1 - 1.0 05/13/2013 Normal [facility] URINALYSIS UA WBC 0-2 /HPF None Seen 05/13/2013 Normal [facility] URINALYSIS UA Sq Epi Rare /LPF Few 05/13/2013 Normal [facility] URINALYSIS UA Bacteria Occas ional /HPF None Seen 05/13/2013 Normal [facility] URINALYSIS UA RBC 6-10 /HPF 0 - 2 05/13/2013 ABN [facility] URINALYSIS UA Mucus None Seen (05/13/2013 15:00:48) None S een 05/13/2013 Normal [facility] URINALYSIS UA Blood Trace *ABN* (08/19/2011 21:15:00) Negati ve 08/20/2011 ABN [facility] URINALYSIS UA Nitrite Negat alisha (08/19/2011 21:15:00) Negati ve 08/20/2011 Normal [facility] URINALYSIS UA Urobilinogen 0.2 0.1 - 1.0 08/20/2011 Normal [facility] URINALYSIS UA Bili Negat alisha *NA* (08/19/2011 21:15:00) Negati ve 08/20/2011 NA [facility] URINALYSIS UA Ketones Negat alisha *NA* (08/19/2011 21:15:00) Negati ve 08/20/2011 NA [facility] URINALYSIS UA WBC 0-2 / HPF (08/19/2011 21:15:00) None S een 08/20/2011 Normal [facility] URINALYSIS UA Sq Epi Few / LPF (08/19/2011 21:15:00) Few 08/20/2011 Normal [facility] URINALYSIS UA Bacteria Few / HPF (08/19/2011 21:15:00) None S een 08/20/2011 Normal [facility] URINALYSIS UA RBC 0-2 / HPF (08/19/2011 21:15:00) 0 - 2 08/20/2011 Normal [facility] URINALYSIS Micro? Perfo rmed (08/19/2011 21:15:00) 08/20/2011 Normal [facility] URINALYSIS UA Leuk Est Negat alisha (08/19/2011 21:15:00) Negati ve 08/20/2011 Normal [facility] URINALYSIS UA pH 6.0 5.0 - 8.0 08/20/2011 Normal [facility] URINALYSIS UA Glucose Negat alisha (08/19/2011 21:15:00) Negati ve 08/20/2011 Normal [facility] URINALYSIS UA Protein Negat alisha (08/19/2011 21:15:00) Negati ve 08/20/2011 Normal [facility] URINALYSIS UA Turbidity Clear (08/19/2011 21:15:00) Clear 08/20/2011 Normal [facility] URINALYSIS UA Color Yello w *NA* (08/19/2011 21:15:00) Yellow 08/20/2011 NA [facility] URINALYSIS UA Spec Grav 1.020 <=1.030 08/20/2011 Normal [facility] CHEMISTRY Glucose Lvl 150 08/20/2011 NA <sup>1</sup>Interpretive Data: Reference Ranges : 0 - 7 days : 41 - 90 mg/dL 7 days - 150 yrs : 70 - 99 mg/dL (fasting), based on the clinical recommendations of the [place] [employer]. [facility] CHEMISTRY Sodium Lvl 142 135 - 145 08/20/2011 Normal [facility] CHEMISTRY BUN 20 7 - 22 08/20/2011 Normal [facility] CHEMISTRY Creatinine Lvl 1.1 0.5 - 1.4 08/20/2011 Normal [facility] CHEMISTRY Calcium Lvl 8.6 8.5 - 10.5 08/20/2011 Normal [facility] CHEMISTRY Chloride Lvl 106 95 - 109 08/20/2011 Normal [facility] CHEMISTRY Potassium Lvl 3.7 3.5 - 5.1 08/20/2011 Normal [facility] CHEMISTRY CO2 29 24 - 32 08/20/2011 Normal [facility] CHEMISTRY AGAP 10.7 10.0 - 20.0 08/20/2011 Normal [facility] CHEMISTRY Phosphorus 3.6 2.5 - 4.5 08/20/2011 Normal [facility] CHEMISTRY Total CK 119 12 - 191 08/20/2011 Normal [facility] CHEMISTRY Magnesium Lvl 1.9 1.8 - 2.4 08/20/2011 Normal [facility] CHEMISTRY Troponin-I <0.02 0.00 - 0.40 08/20/2011 Normal [facility] CHEMISTRY Troponin-T <0.010 0.000 - 0.100 08/20/2011 Normal [facility] CHEMISTRY CK MB Index 1.2 0.0 - 2.5 08/20/2011 Normal [facility] CHEMISTRY CK MB 1.4 0.5 - 3.6 08/20/2011 Normal [facility] HEMATOLOGY PTT 30.9 22.9 - 35.8 08/20/2011 Normal <sup>3</sup>Interpretive Data: Heparin T herapeutic Range: 57 - 92 Seconds [facility] HEMATOLOGY PT 12.2 12.0 - 14.7 08/20/2011 Normal [facility] HEMATOLOGY INR 0.90 0.85 - 1.17 08/20/2011 Normal <sup>2</sup>Interpretive Data: RECOMMEND ED RANGES FOR PROTIME INR: 2.0-3.0 for most medical and surgical thromboembolic states. 2.5-3.5 for artificial heart valves and recurrent embolism. INR SHOULD BE USED ONLY FOR PATIENTS ON STABLE ANTICOAGULANT THERAPY. [facility] HEMATOLOGY Hct 36.8 36.0 - 48.0 08/20/2011 Normal [facility] HEMATOLOGY Hgb 11.9 12.0 - 16.0 08/20/2011 LOW [facility] HEMATOLOGY RBC 4.30 4.20 - 5.40 08/20/2011 Normal [facility] HEMATOLOGY MCV 85.6 81.0 - 99.0 08/20/2011 Normal [facility] HEMATOLOGY RDW 13.8 11.5 - 14.5 08/20/2011 Normal [facility] HEMATOLOGY Platelet 220 133 - 450 08/20/2011 Normal [facility] HEMATOLOGY MCH 27.7 27.0 - 31.0 08/20/2011 Normal [facility] HEMATOLOGY MCHC 32.3 32.0 - 36.0 08/20/2011 Normal [facility] HEMATOLOGY MPV 8.4 7.4 - 10.4 08/20/2011 Normal [facility] [facility] WBC 6.4 3.7 - 10.4 08/20/2011 Normal [facility] HEMATOLOGY Eosinophils # 0.2 0.0 - 0.5 08/20/2011 Normal [facility] HEMATOLOGY Monocytes # 0.6 0.0 - 0.8 08/20/2011 Normal [facility] HEMATOLOGY Basophils 0.2 0.0 - 1.0 08/20/2011 Normal [facility] HEMATOLOGY Segs-Bands # 3.3 1.5 - 8.1 08/20/2011 Normal [facility] HEMATOLOGY Lymphocytes # 2.3 1.0 - 5.5 08/20/2011 Normal [facility] HEMATOLOGY Basophils # 0.0 0.0 - 0.2 08/20/2011 Normal [facility] HEMATOLOGY Lymphocytes 35.3 20.0 - 40.0 08/20/2011 Normal [facility] HEMATOLOGY Segs 51.1 45.0 - 75.0 08/20/2011 Normal [facility] HEMATOLOGY Eosinophils 3.3 0.0 - 4.0 08/20/2011 Normal [facility] HEMATOLOGY Monocytes 10.1 2.0 - 12.0 08/20/2011 Normal [facility] Pathology Reports No Data Provided [...] present in the thoracic spine. 01/08/2019 [facility] [place] Chest 2 views DX EXAM: XR CHES [...] acute cardiopulmonary abnormality. [place] SECTION: ER 03/08/2017 [facility] Abdomen/Pelvis wo IV contrast CT [...] renal hypodense lesion is recommended. 02/07/2016 [facility] [place] Liver w Liver vessels Doppler US Exam: Liver ultrasound with Doppler evaluation Reason for Exam: Abdominal pain, [id number] Right upper quadrant pain Comparison Exam: 11/21/2013 [...] of pleural fluid may be present. 07/26/2015 [facility] Ext Lower Venous Doppler Unilat [...] lower extremity huang p vein thrombosis. 10/07/2014 [facility] Ankle 3 views DX EXAM: [...] Multifocal degenerative changes, as a guille. 10/07/2014 [facility] Foot 2 views DX EXAM: [...] Multifocal degenerative changes, as a guille. 10/07/2014 [facility] Retroperitoneal complete w Doppler US [...] Comments Source Systolic (mm Hg) 147 03/11/2020 [facility] Diastolic (mm Hg) 71 03/11/2020 [facility] Heart Rate 75 03/11/2020 [facility] Height 162.56 cm 03/11/2020 [facility] Weight 82.386 03/11/2020 [facility] BMI Calculated 31.18 03/11/2020 [facility] Systolic (mm Hg) 135 05/08/2019 [facility] Diastolic (mm Hg) 68 05/08/2019 [facility] Heart Rate 72 05/08/2019 [facility] Height 160.02 cm 05/08/2019 [facility] Weight 81.364 05/08/2019 [facility] BMI Calculated 31.77 05/08/2019 [facility] BMI Calculated 32.88 01/23/2019 [facility] Weight 81.534 01/23/2019 [facility] Height 157.48 cm 01/23/2019 [facility] Systolic (mm Hg) 125 01/23/2019 [facility] Diastolic (mm Hg) 68 01/23/2019 [facility] Heart Rate 87 01/23/2019 [facility] BMI Calculated 30.93 12/12/2018 [facility] Weight 81.727 12/12/2018 [facility] Height 162.56 cm 12/12/2018 [facility] Systolic (mm Hg) 143 12/12/2018 [facility] Diastolic (mm Hg) 76 12/12/2018 [facility] Heart Rate 82 12/12/2018 [facility] Respitory Rate 16 12/12/2018 [facility] Respitory Rate 28 03/08/2017 [facility] Systolic (mm Hg) 164 03/08/2017 [facility] Diastolic (mm Hg) 79 03/08/2017 [facility] Respitory Rate 17 03/08/2017 [facility] Systolic (mm Hg) 166 03/08/2017 [facility] Diastolic (mm Hg) 69 03/08/2017 [facility] Systolic (mm Hg) 181 03/08/2017 [facility] Diastolic (mm Hg) 78 03/08/2017 [facility] Respitory Rate 16 03/08/2017 [facility] Weight 79.545 03/08/2017 [facility] Height 162.56 cm 03/08/2017 [facility] BMI Calculated 30.1 03/08/2017 [facility] Temperature Oral (F) 97.8 F 03/08/2017 [facility] Heart Rate 64 03/08/2017 [facility] Weight 82.727 03/28/2016 [facility] BMI Calculated 31.31 03/28/2016 [facility] Heart Rate 70 03/28/2016 [facility] Temperature Oral (F) 96.0 F 03/28/2016 [facility] Height 162.56 cm 03/28/2016 [facility] Systolic (mm Hg) 152 03/28/2016 [facility] Diastolic (mm Hg) 59 03/28/2016 [facility] Height 162.56 cm 02/28/2016 [facility] BMI Calculated 31.82 02/28/2016 [facility] Weight 84.091 02/28/2016 [facility] Heart Rate 62 02/28/2016 [facility] Systolic (mm Hg) 174 02/28/2016 [facility] Diastolic (mm Hg) 70 02/28/2016 [facility] Weight 82.273 01/31/2016 [facility] BMI Calculated 31.13 01/31/2016 [facility] Height 162.56 cm 01/31/2016 [facility] Heart Rate 59 01/31/2016 [facility] Systolic (mm Hg) 134 01/31/2016 [facility] Diastolic (mm Hg) 62 01/31/2016 [facility] Systolic (mm Hg) 123 07/27/2015 [facility] Diastolic (mm Hg) 56 07/27/2015 [facility] Respitory Rate 18 07/27/2015 [facility] Heart Rate 57 07/27/2015 [facility] Temperature Oral (F) 97.8 F 07/27/2015 [facility] Temperature Oral (F) 97.8 F 07/27/2015 [facility] Heart Rate 65 07/27/2015 [facility] Respitory Rate 18 07/27/2015 [facility] Systolic (mm Hg) 111 07/27/2015 [facility] Diastolic (mm Hg) 46 07/27/2015 [facility] Systolic (mm Hg) 116 07/27/2015 [facility] Diastolic (mm Hg) 52 07/27/2015 [facility] Respitory Rate 18 07/27/2015 [facility] Heart Rate 60 07/27/2015 [facility] Temperature Oral (F) 98.0 F 07/27/2015 [facility] Weight 80.636 07/26/2015 [facility] BMI Calculated 30.51 07/26/2015 [facility] Height 162.56 cm 07/26/2015 [facility] Height 162.56 cm 07/26/2015 [facility] BMI Calculated 30.96 07/26/2015 [facility] Weight 81.818 07/26/2015 [facility] Respitory Rate 20 10/09/2014 [facility] Heart Rate 61 10/09/2014 [facility] Temperature Oral (F) 98.0 F 10/09/2014 [facility] Systolic (mm Hg) 124 10/09/2014 [facility] Diastolic (mm Hg) 60 10/09/2014 [facility] Heart Rate 64 10/09/2014 [facility] Respitory Rate 20 10/09/2014 [facility] Temperature Oral (F) 99.1 F 10/09/2014 [facility] Systolic (mm Hg) 131 10/09/2014 [facility] Diastolic (mm Hg) 51 10/09/2014 [facility] Systolic (mm Hg) 118 10/09/2014 [facility] Diastolic (mm Hg) 51 10/09/2014 [facility] Temperature Oral (F) 98.9 F 10/09/2014 [facility] Respitory Rate 18 10/09/2014 [facility] Heart Rate 63 10/09/2014 [facility] BMI Calculated 30.27 10/07/2014 [facility] Height 162.56 cm 10/07/2014 [facility] Weight 80 0 10/07/2014 [facility] BMI Calculated 33.37 11/17/2013 [facility] Weight 88.182 11/17/2013 [facility] Height 162.56 cm 11/17/2013 [facility] Temperature Oral (F) 97.4 F 05/14/2013 [facility] Heart Rate 60 05/14/2013 [facility] Respitory Rate 20 05/14/2013 [facility] Systolic (mm Hg) 200 05/14/2013 [facility] Diastolic (mm Hg) 85 05/14/2013 [facility] Heart Rate 69 05/14/2013 [facility] Respitory Rate 20 05/14/2013 [facility] Temperature Oral (F) 98.1 F 05/14/2013 [facility] Systolic (mm Hg) 170 05/14/2013 [facility] Diastolic (mm Hg) 62 05/14/2013 [facility] Weight 81.818 05/13/2013 [facility] Height 162.56 cm 05/13/2013 [facility] Temperature Oral (F) 99.0 F 05/13/2013 [facility] Systolic (mm Hg) 201 05/13/2013 [facility] Respitory Rate 20 05/13/2013 [facility] Heart Rate 68 05/13/2013 [facility] Diastolic (mm Hg) 81 05/13/2013 [facility] Height 162.56 cm 02/28/2012 [facility] Weight 86.364 02/28/2012 [facility] Weight 90.909 01/25/2012 [place] Height 167.64 cm 01/25/2012 [facility] Weight 84.091 08/20/2011 [facility] Height 165.10 cm 08/20/2011 [facility] Encounters Location Location Details Encounter Type Encounter Number Reason For Visit Attending Provider ADM Date DC Date Status Source [facility] Emergency [id number] OSCAR JONES 08/19/2011 08/19/2011 Discharged [facility] Emergency [id number] OTHER ROSALINE PANTERA 05/13/2013 05/13/2013 Active [facility] AUDIT [id number] 05/21/2013 05/21/2013 [facility], Provi jovan: JOHANNA INTERIANO, Status: Pen, Time: 9:30 AM [id number] 06/04/2013 05/21/2013 [facility] Outpatient [id number] Atilla Ertan 11/17/2013 11/18/2013 [facility] Bedded Outpatient [id number] Atilla Ertan 11/20/2013 11/20/2013 [facility] Out[facility] Imaging [place] [facility] Services [id number] Atilla Ertan 11/21/2013 11/22/2013 [facility] [place] Out[facility] Diag Services [id number] Belén Perkins 06/16/2014 06/17/2014 [facility] OBS Observation Patient [id number] Prieto Arriaza Jr 10/06/2014 10/09/2014 [facility] OBS Observation Patient [id number] José William 07/26/2015 07/28/2015 [facility] [place] Out[facility] Services [id number] Fidencio Mack 12/17/2015 12/18/2015 [facility] [place] [facility] Outpatient [id number] Raimundo Marsh 01/31/2016 02/01/2016 [facility] [place] Out[facility] Di[facility] Services [id number] Non Physician 02/07/2016 02/08/2016 [facility] Outpatient [id number] Raimundo Marsh 02/28/2016 02/29/2016 [facility] Bedded Outpatient [id number] Raimundo Marsh 03/14/2016 03/14/2016 [facility] Outpatient [id number] Raimundo Marsh 03/28/2016 03/29/2016 [facility] Emergency [id number] Rosaline Le 03/08/2017 03/08/2017 [facility] [id number] Claudio Khan 12/12/2018 12/13/2018 [facility] Outpatient [facility] [place] Out[facility] Diag Services [id number] Starla Don 01/08/2019 01/09/2019 [facility] Outpatient [id number] Abbe Osorioillo 01/23/2019 01/24/2019 [facility] [place] Out[facility] Di[facility] Services [id number] Abbe Gregorio 02/06/2019 02/07/2019 [facility] [place] [facility] Bedded Outpatient [id number] Abbe Osorioillo 03/12/2019 03/12/2019 [facility] Bedded Outpatient [id number] Abbe Osorioillo 05/01/2019 05/05/2019 [facility] Outpatient [id number] Abbe Osorioillo 05/08/2019 05/09/2019 [facility] Phone Message [id number] 12/03/2019 12/05/2019 [facility] Outpatient [id number] Abbe Gregorio 03/11/2020 03/12/2020 [facility] Outpatient [id number] SOB 6 [facility] WALK TEST CARRILLO MEJIA Active [facility] Outpatient [id number] DYSPNEA CARRILLO MEJIA Active [facility] Procedures Procedure Code Date Perfomer Comments Source Upper GI endoscopy [id number] 03/12/2019 [facility], EDCT Cataract surgery [id number] 01/13/2014 [facility], [facility] Reeves, [facility] [place], [facility] Total replacement of left knee joint [id number] 03/22/2011 [facility], [facility]DRA Reeves, [facility] [place], [facility] Arthroscopy [id number] 07/02/2000 [facility], CASS[facility]DRA Reeves, [facility] [place], [facility] Repair of umbilical hernia [id number] 07/02/1996 [facility], CASSANDRA Reeves, [facility] [place], [facility] Hysterectomy [id number] [facility], CASSANDRA Reeves, C[facility]DRA [place],[facility] Abdomen endoscopy [id number] [facility], [facility]DRA Reeves, [facility] [place],[facility] Biopsy of liver [id number] [facility], CASSANDRA Reeves, CASSANDRA [place],[facility] Colonoscopy [id number] [facility], CASSANDRA Reeves, CASSANDRA Joea,[facility] Cystoscopy [id number] [facility], CASS[facility]DRA Reeves, CASSANDRA Joea,[facility] Assessment and Plan Assessment and Plan Date [...] 100 mg, Route: PO, Drug form: CAP, [id number], Dosing Weight 80, kg, Start date: 10/08/14 [...] and negative [place]/S. Observation status. FULL CODE [facility] IM hospitalist team is primary. Please [phone] with any questions. 10/09/2014 [facility] Plan of Care Plan of Care Date Source [facility] URINALYSIS, COMPLETE 05/21/2013 [place] CULTURE, URINE, ROUTINE 05/21/2013 Routine 05/21/2013 [facility] Social History Social History Date Source Social History TypeResponse Alcohol Never Smoking Status Never smoker; Exposure to Tobacco Smoke None; Cigarette Smoking Last 365 Days No; Reg Smoking Cessation Counseling No entered on: 03/11/20 03/11/2020 [facility] Social History TypeResponse Smoking Status [...] [facility] [place] Never A Smoker (Active) 05/21/2013 [facility] Family History No Data Provided for This Section Advance Directives Order Name Results Value Date Source Advance Directives Advance Dir ectives No Advance Directives available. 05/21/2013 [facility] Functional Status No Data Provided for This Section
--- OUTSIDE RECORDS SUMMARY | 2020-05-09 20:23 | XMS REPORT | Clinical Summary ---
Author Author [facility] [facility] [employer] [employer] Address Unknown Phone Unavailable Care Team Providers Care Administrative Support Coordinator Name Role Phone Belén Perkins MD PCP [...] Plan / Dates Group Medicare MEDICARE MEDICARE [id number] 2000- [place], PART A AND Present [place] [employer] 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
--- OUTSIDE RECORDS SUMMARY | 2020-05-09 20:24 | XMS REPORT | Continuity of Care Document ---
Author Author [facility] t Organization [facility] Address [address] [place] [address] Phone Unavailable Care Team Providers Care Chief Medical Director Name Role Phone NONSTAFF PCP Unavailable Emily BLANTON Attphys Unavailable Abbe Gregorio Attphys Janie Don Attphys Franck Khan Attphys Mauricio Le Attphys Siena Marsh Attphys Physician, Associated Non Attphys Unavailable Eric Mack Attphys Fidencio Thomas Attphys Padmini Wright Attphys Tunde Perkins Attphys Montse Tsang Attphys Fidencio Thomas Admphys Johan Arriaza Jr Admphys Payers Payer Name Policy Type Policy Number Effective Date Expiration Date Ancelmo horowitz Medicare A & B [id number] 2000 00:00:00 [facility] Miscellaneous Indemnity [id number] 2000 00:00:00 [facility] Problems Condition Name Condition Details Condition Category Status Onset Date Resolution Date Last Treatment Date Treating Clinician Comments Source F/U F/U Active 11/06/2019 [facility] Diagnosis Active 2019-11-06 00:00:00 2020-03-11 12:45:00 Edith Reeves FOLLOW UP FOLL OW UP Active 05/14/2019 [facility] Diagnosis Active 2019-05-14 00:00:00 2020-03-10 15:45:00 Edith Reeves BDDC GERD BDDC GERD Active 03/25/2019 [facility] Diagnosis Active 2019-03-25 00:00:00 2019-05-05 07:12:00 Edith Reeves GI F/U APPT GI F /U APPT Active 03/19/2019 [facility] Diagnosis Active 2019-03-19 00:00:00 2019-05-08 13:51:00 Edith Reeves BDDC ESOPHAGEAL DYSMOTILITY, BRONCHIEC BDDC ESOPHAGEAL DYSMOTILITY, BRONCHIEC Active 02/24/2019 [facility] Diagnosis Active 2019-02-24 00:00:00 2019-03-12 08:11:00 Edith Reeves K21.9 - GASTRO-ESOPHAGEAL REFLUX DISEA K21.9 - GASTRO- ESOPHAGEAL REFLUX DISEA Active 02/04/2019 [facility] Diagnosis Active 2019-02-04 00:01:00 2019-07-15 11:23:00 Jordyn Reeves R05 - COUGH R05 - COUGH Active 01/08/2019 [facility] Diagnosis Active 2019-01-08 00:01:00 2019-01-30 15:52:00 Edith Reeves NEW PT CONSULT - GERD NEW PT CONSULT - GERD Active 12/17/2018 [facility] Diagnosis Active 2018-12-17 00:00:00 2019-03-26 15:38:00 Edith Reeves CHEST PAIN, HIGH BP, PAIN UNDER SHOULDER CHEST PAIN, HIGH BP, PAIN UNDER SHOULDER Active 03/08/2017 [facility] Diagnosis Active 2017-03-08 00:00:00 2017-04-10 09:34:00 Edith Reeves BDDC-Z00.00 ENCOUNTER FOR GENERAL ADULT BDDC-Z00.00 ENCOUNTER FOR GENERAL ADULT Active 02/28/2016 [facility] Diagnosis Active 2016-02-28 00:00:00 2016-04-23 12:26:00 Edith Reeves R10.11 - RIGHT UPPER QUADRANT PAIN R10.11 - RIGHT UPPER QUADRANT PAIN Active 02/01/2016 [facility] [place] Diagnosis Active 2016-02-01 00:01:00 2016-03-02 13:35:00 Edith Reeves RUQ PAIN - DR HASKINS PT FROM 2008 RUQ PAIN - DR HASKINS PT FROM 2008 Active 01/28/2016 [facility] Diagnosis Active 2016-01-28 00:00:00 2016-01-31 08:38:00 M sherman Reeves M79.89 - OTHER SPECIFIED SOFT TISSUE DI M79.89 - OTHER SPECIFIED SOFT TISSUE DI Active 12/17/2015 [facility] [place] Diagnosis Active 2015-12-17 00:01:00 2016-03-02 13:36:00 M sherman Reeves Uncontrolled type 2 diabetes mellitus Uncontrolled type 2 di abetes mellitus Disease Active 2015-08-17 00:00:00 Crow Sandoval CHEST PAIN CHES T PAIN Active 07/26/2015 [facility] Diagnosis Active 2015-07-26 15:42:00 2015-07-28 10:15:00 Edith Reeves CHEST PAIN/HYPERTENSION/HEADACHE CHEST PAIN/HYPERTENSION/HEADACHE Active 07/26/2015 [facility] Diagnosis Active 2015-07-26 00:00:00 2015-07-26 15:59:00 Edith Revees L FOOT SWELLING CELLULITIS L F OOT SWELLING CELLULITIS Active 10/06/2014 [facility] Diagnosis Active 2014-10-06 00 :00:00 2014-10-27 07:42:00 Edith Reeves 783.21 - ABNORMAL LOSS O 783. 21 - ABNORMAL LOSS O Active 11/18/2013 CASSANDRA Reeves Diagnosis Active 2013-11-18 00:01:00 2014-02-20 16:39:00 [facility] [place] - HEARTBURN; DIARRHEA; CHRONIC DIAR BDWY - HEARTBURN; DIARRHEA; CHRONIC DIAR Active 11/17/2013 [facility] Diagnosis Active 2013-11-17 00:00:00 2013-11-17 15:26:00 Edith MILLAN - COLONOSCOPY EGD W/ BX B DDC - COLONOSCOPY EGD W/ BX Active 11/17/2013 [facility] Diagnosis Active 2013-11-17 00:00:00 2013-12-23 09:37:00 Edith Reeves UTERINE CANCER? UTER INE CANCER? Active 10/29/2013 [facility] Diagnosis Active 2013-10-29 00:00:00 2014-03-31 1 5:26:00 [facility] REFLUX REFL UX Active 10/09/2013 [facility] Diagnosis Active 2013-10-09 00:00:00 2013-11-17 13:15:00 Edith Reeves OTHER OTHE R Active 05/13/2013 [facility] Diagnosis Active 2013-05-13 00:00:00 2013-05-27 09:55:00 [facility] DYSPNEA DYSP VENKATESH Active 02/15/2012 [facility] Diagnosis Active 2012-02-15 00:00:00 2012-02-28 08:48:00 [facility] SOB 6 [facility] WALK TEST SOB 6 [facility] WALK TEST Active 01/19/2012 [facility] Active 2012-01-19 00:00 :00 2012-01-25 12:23:00 Edith Reeves STROKE SYMPTOMS STRO KE SYMPTOMS Active 08/19/2011 [facility] Diagnosis Active 2011-08-19 18:00:00 2011-08-19 2 0:24:00 Edith Reeves Final: Veronique l: 10/11/2014 [facility] Problem 2014-10-11 18:26:48 Edith Reeves Anxiety (finding) Anxi ety (finding) Resolved Problem 03/13/2020 [facility] CASSANDRA Reeves,[facility] Problem Resolved 2020-03-13 22:41:54 Edith Reeves Arthritis (disorder) Arth ritis (disorder) Resolved Problem 03/13/2020 [facility] CASSANDRA Reeves,[facility]arla RoyUN[facility] EDWY Problem Resolved 2020-03-13 22:41:54 Edith Reeves Kumar's palsy (disorder) Kumar 's palsy (disorder) Resolved Problem 03/13/2020 [facility]DRA [facility] C[facility]DRA RoyUNIV[facility] EDDC Problem Resolved 2020-03-13 22:41:54 [facility] chato Reeves Cellulitis (disorder) Cell ulitis (disorder) Resolved Problem 03/13/2020 [facility] CASSANDRA Reeves, CASSANDRA JoeaUNIV[facility] ED[facility] Problem Resolved 2020-03-13 22:41:54 [facility] chato Reeves Diabetes mellitus type 2 (disorder) Diabetes mellitus type 2 (disorder) Resolved Problem 03/13/2020 [facility], CASSANDRA eReves, [facility] [place], EDDC Problem Resolved 22:41:54 Edith Reeves Gout (disorder) Gout (disorder) Resolved Problem 03/13/2020 [facility], CASSANDRA Reeves, [facility] [place], EDDC Problem Resolved 2020-03-13 22:41:54 Lobo Reeves Infectious disorder of kidney (disorder) Infectious disorder of kidney (disorder) Resolved Problem 03/13/2020 [facility], CASSANDRA Reeves, [facility] [place], EDDC Problem Resolved 2020-03-13 22:41:54 Edith Reeves Cystocele Cyst ocele Active 05/21/2013 [facility] Problem Active 2013-05-21 15:01:57 Edith Reeves Hypertensive disorder, systemic arterial (disorder) Hypertensive disorder, systemic arterial (disorder) Active Problem 03/13/2020 [facility], CASSANDRA Reeves, [facility] [place], EDDC Problem Active 2020-03-13 22:41:54 Lobo Reeves Gastroesophageal reflux disease (disorder) Gastroesophageal reflux disease (disorder) Active Problem 03/13/2020 [facility], CASSANDRA Reeves, [facility] [place], EDDC Problem Active 2020-03-13 22:41:54 Edith Reeves Chronic kidney disease stage 4 (disorder) Chronic kidney disease stage 4 (disorder) Active Problem 03/13/2020 [facility], CASSANDRA Reeves, [facility] [place], EDDC Problem Active 2020-03-13 22:41:54 Edith Reeves Diabetes mellitus (disorder) D iabetes mellitus (disorder) Active Problem 03/13/2020 [facility], CASSANDRA Reeves, [facility] [place], EDDC Problem Active 2020-03-13 22:41:54 Edith Reeves Family history of malignant neoplasm of gastrointestin al tract (situation) Family history of malignant neoplasm of gastrointestinal tract (situation) Active Problem 03/13/2020 [facility], CASSANDRA Reeves, [facility] [place], EDDC Problem Active 2020-03-13 22:41:54 Edith Reeves Steatosis of liver (disorder) Steatosis of liver (disorder) Active Problem 03/13/2020 [facility], CASSANDRA Reeves, [facility] [place], EDDC Problem Active 2020-03-13 22:41:54 Edith Reeves Hyperlipidemia (disorder) Hype rlipidemia (disorder) Active Problem 03/13/2020 [facility], CASSANDRA Reeves, [facility] [place], EDDC Problem Active 2020-03-13 22:41:54 Virgil Reeves Obesity (disorder) Obes ity (disorder) Active Problem 03/13/2020 [facility], CASSANDRA Reeves, [facility] [place], EDDC Problem Active 2020-03-13 22:41:54 Edith Reeves Right upper quadrant pain (finding) Right upper quadrant pain (finding) Active Problem 03/13/2020 [facility], CASSANDRA Reeves, [facility] [place], EDDC Problem Active 2020-03-13 22:41:54 Edith Reeves SHORTNESS OF BREATH SHOR TNESS OF BREATH Active [facility] Active 2012-01-25 12:23:00 Me charlie Reeves RESPIRATORY ABNORM NEC RESP IRATORY ABNORM NEC Active [facility] Diagnosis Active 2012-02-28 08:48:00 Edith Reeves ROUTINE MEDICAL EXAM ROUT INE MEDICAL EXAM Active [facility] Diagnosis Active 2013-11-17 13:15:00 Edith Reeves DIARRHEA DIAR MARILEE Active [facility] Diagnosis Active 2013-12-23 09:37:00 Edith Reeves HEARTBURN HEAR TBURN Active [facility] Diagnosis Active 2013-12-23 09:37:00 Edith Reeves CELLULITIS NOS CELL ULITIS NOS Active [facility] Diagnosis Active 2014-10-27 07:42:00 [place] charlie Reeves ENCNTR FOR GENERAL ADULT MEDICAL EXAM W/ ENCNTR FOR GENERAL ADULT MEDICAL EXAM W/ Active [facility] Diagnosis Act alisha 2020-03-11 12:45:00 Edith kohler Strain of muscle and tendon of front wall of thorax, i nitial encounter Strain of muscle and tendon of front wall of thorax, initial encounter 03/08/2017 03/11/2017 [facility] Problem 2017-03-08 05:00:00 2017-03-11 05:35:47 2017-03-11 05:35:47 Jordyn Reeves Allergies, Adverse Reactions, Alerts Allergy Name Allergy Type Status Severity Reaction(s) Onset Date Inacti ve Date Treating Clinician Comments Source Prednisone Propensity to adverse reactions to drug Active Other (See Comments) 2016-09-18 00:00:00 High blood pressure Adrienne angel Sandoval Penicillin Allergy to Substance Active Mild 2016-01-02 00:00:00 [facility] Hydrocodone Allergy to Substance Active Mild 2016-01-02 00:00:00 [facility] Acetaminophen Allergy to Substance Active Mild 2016-01-02 00:00: 00 [facility] Hydrocodone-Acetaminophen Propensity to adverse reactions to drug Act alisha 2015-08-17 00:00:00 Other reaction(s): Vicodin H angel Sandoval Iodine Propensity to adverse reactions to drug Active Other (See Comments) 2015-08-17 00:00:00 Crow morales Levofloxacin Propensity to adverse reactions to drug Active Other (See Comments) 2015-08-17 00:00:00 Levaquin [facility] Penicillins Propensity to adverse reactions to drug Active 2015-08-17 00:00:00 Other reaction(s): Penicillins Adrienne angel Sandoval penicillin penicillin Active 2001-07-05 06:00:00 [facility] Penic[facility]ins Penicillins Active [facility] Levaquin TABS Levaquin TABS Active [facility] Iodine SOLN Iodine SOLN Active [facility] Vicodin TABS Vicodin TABS Active [facility] Levaquin Levaquin Active [facility] iodine iodine Active [facility] Vicodin Vicodin Active [facility] predniSONE predniSONE Active [place] char[place] Re[place] Family History Family Member Diagnosis Comments Start Date Stop Date Source Maternal grandmother Diabetes Hous isrrael Sandoval Maternal grandmother Heart disease Adrienne Sandoval Natural mother GI problems Maria Jordyn ethodist Social History Social Habit Start Date Stop Date Quantity Comments Source Sex Assigned At [place] ryan Sandoval Tobacco use and exposure 2017-02-07 00:00:00 2017-02-07 00:00:00 Cherise Sandoval Social History 2013-05-21 15:01:57 2013-05-21 15:01:57 Edith Reeves Smoking Status Start Date Stop Date Source Social History Edith Reeves Medications Ordered Medication Name Filled Medication Name [...] oral tablet 2019-01-23 19:00:00 Yes 0 Refill(s) [facility] irbesartan 150 mg oral tablet 2019-01-23 19:00:00 Yes 150 mg = 1 tab, PO, Daily, # 30 tab, 0 Refill(s) [place] charlie Reeves repaglinide 1 mg oral tablet 2018-12-12 20:28:00 Yes 1 mg = 1 tab, PO, TID-Before Meals, # 90 tab, 0 Refill(s) Edith Reeves spironolactone 25 mg oral tablet 2018-12-12 20:28:00 Yes 25 mg = 1 tab, PO, Daily, # 90 tab, 1 Refill(s) [place] charlie Reeves Vitamin B12 2018-12-12 20:28:00 Yes 0 Refill (s) Edith Reeves tramadol hydrochloride 50 MG Oral Tablet 2018-12-12 20:28:00 Yes 50 mg = 1 tab, PO, Q8H, PRN Pain, # 60 tab, 0 Refill(s) Edith Reeves sitagliptin 50 MG Oral Tablet [Januvia] 2018-12-12 20:28:00 Yes 50 mg = 1 tab, PO, Daily, # 90 tab, 1 Refill(s) Edith Reeves Metformin hydrochloride 500 MG Oral Tablet 2018-12-12 20:28:00 Yes 500 mg = 1 tab, PO, BID-Meals, # 60 tab, 0 Refill(s) Edith Reeves Methocarbamol (Robaxin-750) 750 Mg Tablet Methocarbamo l (Robaxin-750) 750 Mg Tablet 2017-08-08 00:00:00 Yes Mindy Carpenter Md 1 Three Times A Day as needed for Pain [facility] Diazepam 2 MG Oral Tablet [Valium] 2017-03-08 14:20:00 Yes 2 mg = 1 tab, PO, Bedtime, PRN Pain Score 4-6, X 7 day, # 7 tab, 0 Refill(s) [facility] Coreg 2017-03-08 12:08:00 No 25 mg, Route: PO, ONCE, Dosing Weight 79.545, kg, Start date: 03/08/17 7:08:00 CDT, Stop date: 03/08/17 7:08:00 CDT [facility] valsartan 2017-03-08 12:07:00 No 160 mg, Route: PO, Drug form: TAB, ONCE, Dosing Weight 79.545, kg, Start date: 03/08/17 7:07:00 CDT, Stop date: 03/08/17 7:07:00 CDT, .. [facility] n Nitroglycerin 0.02 MG/MG Topical Ointment 2017-03-08 11:05:00 No 1 inch, Route: TOP, Drug Form: OINT, Dosing Weight 79.545, kg, ONCE, STAT, Start date: 03/08/17 6:05:00 CDT, Stop date: 03/08/17 6:05:00 CDT [facility] Acetaminophen 2017-03-08 11:05:00 No 650 mg, Route: PO, Drug form: TAB, ONCE, Dosing Weight 79.545, kg, Priority: STAT, Start date: 03/08/17 6:05:00 CDT, Stop date: 03/08/17 6:05:00 CDT [facility] Aspirin 2017-03-08 09:35:00 No 325 mg, Route: PO, Drug form: TAB, ONCE, Dosing Weight 79.545, kg, Priority: STAT, Start date: 03/08/17 4:35:00 CDT, Stop date: 03/08/17 4:35:00 CDT [facility] oritenzin Reeves Nitroglycerin 2017-03-08 09:35:00 No 0.4 mg, Route: SL, ONCE, Dosing Weight 79.545, kg, Priority: STAT, Start date: 03/08/17 4:35:00 CDT, Stop date: 03/08/17 4:35:00 CDT [facility] aspirin (ECOTRIN) 81 MG enteric coated tablet [...] Yes For ADVOCATE GLUCOMETER device BID testing [facility] thodist GoLYTELY oral powder for reconstitution 2016-02-28 17:33:27 Yes See Instructions, Take as directed by physician., # 1 ea, 0 Refill(s), Pharmacy: [facility] [place] [id number] [facility] pantoprazole 40 mg oral enteric coated tablet 2016-01-31 15:45:4 3 Yes 40 mg = 1 tab, PO, Daily, # 30 tab, 11 R efill(s), Pharmacy: [facility] [address] [place] [address] Potassium Chloride 8 MEQ Extended Release Tablet 2016-01-31 13:59:00 Yes 8 mEq = 1 tab, PO, TID, # 30 tab, 0 Refill(s) [facility] isosorbide dinitrate 30 mg oral tablet 2016-01-31 13:59:00 Yes 30 mg = 1 tab, PO, QID, # 120 tab, 0 Refill(s) [facility] glimepiride 4 mg oral tablet 2016-01-31 13:59:00 Yes 4 mg = 1 tab, PO, Breakfast, # 30 tab, 0 Refill(s) Brian oritenzin Reeves isosorbide mononitrate (IMDUR) 30 MG 24 hr tablet 2015-09-02 00:00:00 Yes TK 1 T PO D Crow eaton allopurinol (ZYLOPRIM) 100 MG tablet 2015-08-30 00:00:00 Yes Crow Sandoval valsartan (DIOVAN) 160 MG tablet 2015-08-30 00:00:00 Yes Crow Sandoval KLOR-CON 8 8 mEq CR tablet 2015-08-30 00:00:00 Yes [facility] pantoprazole (PROTONIX) 40 MG EC tablet 2015-08-24 00:00:00 Ye s Crow Sandoval remove patch 2015-07-28 03:00:00 No 1 patch, Route: TOP, Daily, Drug form: ERFILM, Start date: 07/27/15 21:00:00, Duration: 30 day, Stop date: 08/25/15 21:00:00 Edith Reeves Clonidine Hydrochloride 0.1 MG Oral Tablet 2015-07-27 22:46:00 Yes 0.1 mg = 1 tab, PO, TID, 0 Refill(s) Brian reis [facility] Dextrose 50% Syringe 2015-07-27 22:30:00 No 25 gm, 50 mL, Route: IVP, Drug Form: INJ, Dosing Weight 80.636, kg, PRN, PRN Blood Glucose Results, Start date: 07/27/15 16:30:00, Duration: 30 day, Stop date: 08/26/15 16:29:00 Edith Reeves Insulin, Aspart, Human 2015-07-27 22:30:00 No Notes: Roll in palms of hands gently; Do not shake vigorously. (Same as: NovoLOG) "single patient use only" WASTE: F/P - Black; E - Municipal Trash Bin Stable for 28 days at room temperature. Expires in days from Date Edith Leandro Glucagon 2015-07-27 22:30:00 No 1 mg, Route: IM, Drug form: PDR/INJ, PRN, Dosing Weight 80.636, kg, PRN Blood Glucose Results, Start date: 07/27/15 16:30:00, Duration: 30 day, Stop date: 08/26/15 16:29:00 Edith Reeves atorvastatin 10 mg oral tablet 2015-07-27 18:03:00 Yes 10 mg = 1 tab, PO, Bedtime Edith Reeves allopurinol 100 mg oral tablet 2015-07-27 18:03:00 Yes 100 mg = 1 tab, PO, BID Edith Reeves valsartan 160 mg oral tablet 2015-07-27 18:03:00 Yes 160 mg = 1 tab, PO, BID Edith Reeves carvedilol 25 mg oral tablet 2015-07-27 18:03:00 Yes 25 mg = 1 tab, PO, BID [facility] Vitamin D3 2015-07-27 15:00:00 No Notes: Sa as: Vitamin D3 [facility] Aspirin 2015-07-27 15:00:00 No Notes: Do not crush or chew. (Same As: Ecotrin) Edith Reeves Lasix 2015-07-27 15:00:00 No Notes: (Same as: Lasix) May cause GI upset. Give with food or milk. [facility] potassium chloride 2015-07-27 15:00:00 No Notes: (Same as: K-Dur 10) "Do Not Crush" With food and full glass of water [facility] Lidocaine Hydrochloride 0.05 MG/MG Transdermal Patch [Lidode rm] 2015-07-27 15:00:00 No Notes: (Same as: Lidoderm) [facility] Protonix 2015-07-27 13:30:00 No Notes: Tablet should not be chewed or crushed. (Same as: Protonix) [facility] heparin sodium, porcine 2500 UNT/ML Injectable Solution 2015-07-27 06:00:00 No Notes: porcine heparin [facility] atorvastatin 2015-07-27 03:00:00 No Notes: (Same As: Lipitor) [facility] carvedilol 2015-07-27 03:00:00 No Notes: Give with food. (Same As: Coreg) [facility] potassium chloride 2015-07-27 02:56:00 No Notes: (Same as: K-Dur 20) "Do Not Crush" With food and full glass of water [facility] valsartan 2015-07-26 23:00:00 No Notes: Vinny e as Diovan Edith Reeves Glyburide 2015-07-26 23:00:00 No Notes: [...] 1000 mg Product Wasted: ___ mg M emoritenzin Reeves Aspirin 2015-07-26 20:33:00 No Notes: Take with food. Edith Reeves carvedilol (COREG) 25 MG tablet 2015-06-23 00:00:00 Yes Crow Sandoval clindamycin 300 mg oral capsule 2014-10-09 15:47:00 Yes 300 mg = 1 cap, PO, Q6H, # 20 cap, 0 Refill(s) Virgilpriyank ryeezsudheer Le[facility] Colchicine 0.6 MG Oral Tablet 2014-10-09 15:47:00 Yes 0.6 mg, PO, Daily, # 6 tab, 0 Refill(s) Edith kohler Doxycycline 100 MG Oral Capsule 2014-10-09 15:47:00 Yes 100 mg = 1 tab, PO, [id number], # 14 tab, 0 Refill(s) Edith Leandro Doxycycline 100 MG Oral Capsule 2014-10-09 00:30:00 No Notes: NO MILK/ANTACIDS/IRON Take 1 hour before or 2 hours after dairy products Edith Reeves Colchicine 2014-10-09 00:15:00 No 0.6 mg, 1 tab, Route: PO, Drug form: TAB, ONCE, Dosing Weight 80, kg, Start date: 10/08/14 19:15:00, Stop date: 10/08/14 19:15:00 [facility] Colchicine 2014-10-08 23:15:00 No 1.2 mg, 2 tab, Route: PO, Drug form: TAB, ONCE, Dosing Weight 80, kg, Start date: 10/08/14 18:15:00, Stop date: 10/08/14 18:15:00 [facility] Docusate 2014-10-07 14:00:00 No Notes: (Vinny e as: Colace) [facility] Potassium Chloride 20 MEQ Extended Release Tablet 2014-10-07 14:00:00 No Notes: (Same as: K-Dur 20) With food and full g lass of water [facility] pantoprazole 2014-10-07 14:00:00 No Notes: (Same as: Protonix) [facility] Nifedical XL 2014-10-07 14:00:00 No Notes: (Same as: Adalat CC, Procardia XL) Give on empty stomach. Take 1 hour before or 2 hours after meal; "Avoid grapefruit and grapefruit juice". Do not crush [facility] Bystolic 2014-10-07 14:00:00 No Notes: (vinny e as: Bystolic) [facility] Hydrochlorothiazide 25 MG / Triamterene 37.5 MG Oral Tablet 2014-10-07 14:00:00 No Notes: (tr iamterene-hydrochlorothiazide 37.5-25 mg TAB) (Same As: Maxzide-25) [facility] Aspirin 2014-10-07 14:00:00 No Notes: Do not crush or chew. (Same As: Ecotrin) [facility] Miralax 2014-10-07 14:00:00 No Notes: Dissolve in 8 oz of water or juice. (Same as: Miralax) [facility] nn Magnesium Sulfate 2014-10-07 09:00:00 No 2 gm, 50 mL, Route: IVPB, Drug form: INJ, Q2H, Dosing Weight 80, kg, Total dose = 4 gm, Start date: 10/07/14 4:00:00, Duration: 2 doses or times, Stop date: 10/07/14 6:00:00 [facility] 168 HR Clonidine 0.0125 MG/HR Transdermal Patch 2014-10-07 09:00 :00 No Notes: Patch delivers 0.3 mg /24 hours; Patch is applied weekly. [id number]. [facility] tramadol hydrochloride 50 MG Oral Tablet 2014-10-07 08:56:00 No Notes: . (Same As: Ultram) [facility]on Hydrochlorothiazide 25 MG / Triamterene 37.5 MG Oral Tablet 2014-10-07 08:43:00 Yes 1 tab, PO, Daily, # 30 tab, 0 Refill(s) [facility] 168 HR Clonidine 0.0125 MG/HR Transdermal Patch 2014-10-07 08:43 :00 Yes 1 patch, TOP, Q7D, # 12 patch, 0 Refill(s) [facility] NS 1,000 mL 2014-10-07 06:03:00 No 1,000 mL, Rate: 75 ml/hr, Infuse over: 13.3 hr, Route: IV, Dosing Weight 80 kg, Total Volume: 1,000, Start date: 10/07/14 1:03:00, Duration: 30 day, Stop date: 11/06/14 1:02:00 [facility] potassium chloride 2014-10-07 06:02:00 No Notes: (Same as: KCL) Infuse no faster than 10 mEq/hr if given peripherally. [facility] potassium chloride 2014-10-07 06:01:00 No Notes: (Same as: K-Dur 20) "Do Not Crush" With food and full glass of water [facility] Clindamycin 2014-10-07 06:00:00 No Notes: (clindamycin 150 mg/1 ml (600 mg/4 ml VL) INJ) (Same As: Cleocin) [facility] heparin 2014-10-07 05:00:00 No Notes: porci ne heparin [facility] Insulin, Aspart, Human 2014-10-07 03:25:00 No Notes: Roll in palms of hands gently; Do not shake vigorously. (Same as: NovoLOG) "single patient use only" Stable for 28 days at room temperature. Expires in days from Date [facility] Glucagon 2014-10-07 03:25:00 No 1 mg, Route: [...] day, Stop date: 11/05/14 22:24:00 Edith Reeves Ondansetron 2014-10-07 03:24:00 No Notes: (Same as: Khang) MEDICATION WASTE Product Size: 4 mg Product Wasted: ___ mg Edith Reeves Acetaminophen 325 MG / Hydrocodone Bitartrate 5 MG Oral Tabl et 2014-10-07 03:24:00 No Notes: (Sa me as: [place] 325/5) Do not exceed 4gm/day of acetaminophen. Edith Reeves Acetaminophen 2014-10-07 03:24:00 No Notes: Do not exceed 4 gm/day. (Same as: Tylenol) [facility] [place] 24 HR Nifedipine 60 MG Extended Release Tablet [Nifedical] 2014-10-07 03:20:00 Yes 60 mg = 1 tab, PO, Daily, 0 Ref ill(s) [facility] glyBURIDE 2.5 mg oral tablet 2014-10-07 03:20:00 Yes 2.5 mg = 1 tab, PO, BID, 0 Refill(s) [facility] Potassium Chloride 20 MEQ Extended Release Tablet 2014-10-07 03:20:00 Yes 20 mEq = 1 tab, PO, Daily, 0 Refill(s) [facility] Furosemide 40 MG Oral Tablet 2014-10-07 03:20:00 Yes 40 mg = 1 tab, PO, Daily, 0 Refill(s) [facility] POLYETHYLENE GLYCOL 3350 60 MG/ML / Pota ssium Chloride 0.01 MEQ/ML / Sodium Bicarbonate 0.02 MEQ/ML / Sodium Chloride 0.025 MEQ/ML / sodium sulfate 0.04 MEQ/ML Oral Solution [Golytely] 2013-11-17 19:57:00 Yes 240 ml, PO, Q10Min, # 1 ea, 0 Refill(s), [facility] [id number] Edith [place] Vitamin D3 2013-11-17 18:16:00 Yes 0 Refill( [...] Delayed Release 2013-05-21 15:01:57 Yes (Active) Edith isidro Estrace 0.1 MG/GM Vaginal Cream 2013-05-21 06:00:00 Yes ; Start Date: 05/21/2013 (Active) Edith Wrighta nn Murine Tears Plus ophthalmic drops 2011-08-20 04:44:48 Yes Seema Muller Fermin 1 drp, LEFT EYE, TID, 1 btl, Substitute Allowed Edith Reeves predniSONE 50 mg oral tablet 2011-08-20 04:44:16 Yes Mar y Yohana Fermin 50 mg, 1 tab, PO, Daily, 5 tab, Substitution Allowed, TAB [facility] acyclovir 400 mg oral tablet 2011-08-20 04:43:22 Yes Anita avery Yohana Fermin 400 mg, 1 tab, PO, 5X Day, 35 tab, Substitution Allowed, TAB [facility] proparacaine ophthalmic 0.5% solution 2011-08-20 04:24:00 No Seema Fermin Donte drp, Route: POLLY TH EYES, ONCE, Drug form: SOLN, Priority: STAT, Start date: 08/19/11 22:24:00, Stop date: 08/19/11 22:24:00 [facility] fluorescein ophthalmic 1 mg test 2011-08-20 04:23:00 No Seema Fermin Donte strip, Route: BOTH EYES, O NCE, Drug form: STRIP, Start date: 08/19/11 22:23:00, Stop date: 08/19/11 22:23:00 M sherman [place] Allopurinol 100 Mg Tablet Allopurinol 100 Mg Tablet Yes 100 [facility] Aspirin (Aspirin Ec) 81 Mg Tablet. Aspirin (Aspirin Ec) 81 Mg Tab let. Yes 81 Daily [facility] Atorvastatin Calcium 10 Mg Tablet Atorvastatin Calcium 10 Mg Tablet Yes 10 Today At 9:00PM [facility] Carvedilol (Coreg) 12.5 Mg Tab Carvedilol (Coreg) 12.5 Mg Tab Yes 25 [facility] Furosemide (Lasix) 40 Mg Tablet Furosemide (Lasix) 40 Mg Tablet Yes 40 Daily [facility] Glimepiride 2 Mg Tablet Glimepiride 2 Mg Tablet Yes 4 [facility] Isosorbide Dinitrate 30 Mg Tablet Isosorbide Dinitrate 30 Mg Tablet Yes 1 Romi [facility] Pantoprazole Sodium (Protonix) 40 Mg Tablet. Pantopr azole Sodium (Protonix) 40 Mg Tablet. Yes 40 Daily [facility] Sitagliptin Phosphate (Januvia) 100 Mg Tablet Sitaglip tin Phosphate (Januvia) 100 Mg Tablet Yes 50 Daily [facility] Spironolactone 25 Mg Tablet Spironolactone 25 Mg Tablet Yes 25 [facility] Valsartan (Diovan) 160 Mg Tab Valsartan (Diovan) 160 Mg Tab Yes 160 [facility] Carvedilol 12.5 Mg Tablet, 25 Mg Oral Carvedilol 12.5 Mg Tablet, 25 Mg Oral 2017-08-08 00:00:00 No 25 Twice A Day [facility] Furosemide (Lasix) 20 Mg Tablet, 20 Mg Oral Furosemide (Lasix) 20 Mg Tablet, 20 Mg Oral 2017-08-08 00:00:00 No 20 Daily [facility] Glimepiride 2 Mg Tablet, 2 Mg Oral Glimepiride 2 Mg Tablet, 2 Mg Oral 2017-08-08 00:00:00 No 2 Use As Directed [facility] Potassium Chloride (Klor-Con 8) 8 Meq Tablet.er, 1 Tab Oral Potassium Chloride (Klor-Con 8) 8 Meq Tablet.er, 1 Tab Oral 2017-08-08 00:00:[address] [facility] Biotin , 5000 Oral Biotin , 5000 Oral 2016-01-02 00:00:00 No 5000 Daily [facility] Bystolic , 20 Mg Oral Bystolic , 20 Mg Oral 2016-01-02 00:00:00 No 20 Daily [facility] Clonidine Hcl 0.3 Mg Tablet, 0.3 Mg Transderm Clonidin e Hcl 0.3 Mg Tablet, 0.3 Mg Transderm 2016-01-02 00:00:00 No .3 Weekly [facility] Nifedical Xl , 60 Mg Oral Nifedical Xl , 60 Mg Oral 00:00:00 No 60 Daily [facility] Pantoprazole , 40 Mg Oral Pantoprazole , 40 Mg Oral 00:00:00 No 40 Daily [facility] Triamterene/Hctz (Triamterene-Hctz 37.5-25 Mg Tb) 1 Ea Tab, 1 Each Oral Triamterene/Hctz (Triamterene-Hctz 37.5-25 Mg Tb) 1 Ea Tab, 1 Each Oral 2016-01-02 00:00:00 No 1 Daily [facility] Vitamin D3 , Oral Vitamin D3 , Oral 2016-01-02 00:00:00 No Daily [facility] Vital Signs Vital Name Observation Time Observation Value Comments Source Systolic (mm Hg) 2020-03-11 17:42:00 Virgil [facility] [place] Diastolic (mm Hg) 2020-03-11 17:42:00 [facility] [place] Heart Rate 2020-03-11 17:42:00 [facility] Height 2020-03-11 17:42:00 162.56 cm [facility] Weight 2020-03-11 17:42:00 [facility] [place] BMI Calculated 2020-03-11 17:42:00 [facility] Systolic (mm Hg) 2019-05-08 19:56:00 [facility] Diastolic (mm Hg) 2019-05-08 19:56:00 [facility] Heart Rate 2019-05-08 19:56:00 [facility] [place] Height 2019-05-08 19:56:00 160.02 cm [facility] Weight 2019-05-08 19:56:00 [facility] [place] BMI Calculated 2019-05-08 19:56:00 [facility] [place] BMI Calculated 2019-01-23 18:56:00 [facility] Weight 2019-01-23 18:56:00 [facility] Height 2019-01-23 18:56:00 157.48 cm [facility] Systolic (mm Hg) 2019-01-23 18:56:00 [facility] [place] Diastolic (mm Hg) 2019-01-23 18:56:00 [facility] Heart Rate 2019-01-23 18:56:00 [facility] [place] BMI Calculated 2018-12-12 20:21:00 [facility] [place] Weight 2018-12-12 20:21:00 [facility] [place] Height 2018-12-12 20:21:00 162.56 cm [facility] [place] Systolic (mm Hg) 2018-12-12 20:21:00 [facility] Diastolic (mm Hg) 2018-12-12 20:21:00 [facility] Heart Rate 2018-12-12 20:21:00 [facility] [place] Respitory Rate 2018-12-12 20:21:00 [facility] Respitory Rate 2017-03-08 14:40:00 [facility] [place] Systolic (mm Hg) 2017-03-08 14:40:00 [facility] Diastolic (mm Hg) 2017-03-08 14:40:00 [facility] Respitory Rate 2017-03-08 12:52:00 [facility] [place] Systolic (mm Hg) 2017-03-08 12:52:00 [facility] [place] Diastolic (mm Hg) 2017-03-08 12:52:00 [facility] [place] Systolic (mm Hg) 2017-03-08 11:45:00 [facility] [place] Diastolic (mm Hg) 2017-03-08 11:45:00 [facility] [place] Respitory Rate 2017-03-08 11:45:00 [facility] [place] Weight 2017-03-08 08:38:00 [facility] [place] Height 2017-03-08 08:38:00 162.56 cm [facility] [place] BMI Calculated 2017-03-08 08:38:00 [facility] Temperature Oral (F) 2017-03-08 08:38:00 97.8 F [facility] Heart Rate 2017-03-08 08:38:00 [facility] Weight 2016-03-28 17:42:00 [facility] BMI Calculated 2016-03-28 17:42:00 [facility] [place] Heart Rate 2016-03-28 17:42:00 [facility] [place] Temperature Oral (F) 2016-03-28 17:42:00 96.0 F [facility] [place] Height 2016-03-28 17:42:00 162.56 cm [facility] [place] Systolic (mm Hg) 2016-03-28 17:42:00 [facility] [place] Diastolic (mm Hg) 2016-03-28 17:42:00 [facility] [place] Height 2016-02-28 15:35:00 162.56 cm [facility] [place] BMI Calculated 2016-02-28 15:35:00 [facility] [place] Weight 2016-02-28 15:35:00 [facility] Heart Rate 2016-02-28 15:35:00 [facility] [place] Systolic (mm Hg) 2016-02-28 15:35:00 [facility] Diastolic (mm Hg) 2016-02-28 15:35:00 [facility] Weight 2016-01-31 13:49:00 [facility] [place] BMI Calculated 2016-01-31 13:49:00 [facility] [place] Height 2016-01-31 13:49:00 162.56 cm [facility] Heart Rate 2016-01-31 13:49:00 [facility] [place] Systolic (mm Hg) 2016-01-31 13:49:00 [facility] [place] Diastolic (mm Hg) 2016-01-31 13:49:00 [facility] [place] Systolic (mm Hg) 2015-07-27 21:39:00 [facility] [place] Diastolic (mm Hg) 2015-07-27 21:39:00 [facility] Respitory Rate 2015-07-27 21:39:00 [facility] [place] Heart Rate 2015-07-27 21:39:00 [facility] Temperature Oral (F) 2015-07-27 21:39:00 97.8 F [facility] [place] Temperature Oral (F) 2015-07-27 17:44:00 97.8 F [facility] Heart Rate 2015-07-27 17:44:00 [facility] [place] Respitory Rate 2015-07-27 17:44:00 [facility] Systolic (mm Hg) 2015-07-27 17:44:00 [facility] [place] Diastolic (mm Hg) 2015-07-27 17:44:00 [facility] [place] Systolic (mm Hg) 2015-07-27 13:38:00 [facility] Diastolic (mm Hg) 2015-07-27 13:38:00 [facility] Respitory Rate 2015-07-27 13:38:00 [facility] Heart Rate 2015-07-27 13:38:00 [facility] [place] Temperature Oral (F) 2015-07-27 13:38:00 98.0 F [facility] [place] Weight 2015-07-26 23:35:00 [facility] [place] BMI Calculated 2015-07-26 23:35:00 [facility] [place] Height 2015-07-26 23:35:00 162.56 cm [facility] Height 2015-07-26 17:49:00 162.56 cm [facility] BMI Calculated 2015-07-26 17:49:00 [facility] [place] Weight 2015-07-26 17:49:00 [facility] Respitory Rate 2014-10-09 13:00:00 [facility] Heart Rate 2014-10-09 13:00:00 [facility] [place] Temperature Oral (F) 2014-10-09 13:00:00 98.0 F [facility] Systolic (mm Hg) 2014-10-09 13:00:00 [facility] [place] Diastolic (mm Hg) 2014-10-09 13:00:00 [facility] [place] Heart Rate 2014-10-09 09:41:00 [facility] [place] Respitory Rate 2014-10-09 09:41:00 [facility] [place] Temperature Oral (F) 2014-10-09 09:41:00 99.1 F [facility] [place] Systolic (mm Hg) 2014-10-09 09:41:00 [facility] [place] Diastolic (mm Hg) 2014-10-09 09:41:00 [facility] [place] Systolic (mm Hg) 2014-10-09 02:19:00 [facility] Diastolic (mm Hg) 2014-10-09 02:19:00 [facility] [place] Temperature Oral (F) 2014-10-09 02:19:00 98.9 F [facility] Respitory Rate 2014-10-09 02:19:00 [facility] Heart Rate 2014-10-09 02:19:00 [facility] [place] BMI Calculated 2014-10-07 00:52:00 [facility] [place] Height 2014-10-07 00:52:00 162.56 cm [facility] Weight 2014-10-07 00:52:00 [facility] BMI Calculated 2013-11-17 18:18:00 [facility] Weight 2013-11-17 18:18:00 [facility] Height 2013-11-17 18:18:00 162.56 cm [facility] Temperature Oral (F) 2013-05-14 03:09:00 97.4 F [facility] [place] Heart Rate 2013-05-14 03:09:00 [facility] [place] Respitory Rate 2013-05-14 03:09:00 [facility] [place] Systolic (mm Hg) 2013-05-14 03:09:00 [facility] [place] Diastolic (mm Hg) 2013-05-14 03:09:00 [facility] Heart Rate 2013-05-14 00:38:00 [facility] Respitory Rate 2013-05-14 00:38:00 [facility] [place] Temperature Oral (F) 2013-05-14 00:38:00 98.1 F [facility] Systolic (mm Hg) 2013-05-14 00:38:00 [facility] [place] Diastolic (mm Hg) 2013-05-14 00:38:00 [facility] [place] Weight 2013-05-13 20:10:00 [facility] [place] Height 2013-05-13 20:10:00 162.56 cm [facility] [place] Temperature Oral (F) 2013-05-13 20:10:00 99.0 F [facility] [place] Systolic (mm Hg) 2013-05-13 20:10:00 [facility] [place] Respitory Rate 2013-05-13 20:10:00 [facility] Heart Rate 2013-05-13 20:10:00 [facility] Diastolic (mm Hg) 2013-05-13 20:10:00 [facility] [place] Height 2012-02-28 20:30:00 162.56 cm [facility] [place] Weight 2012-02-28 20:30:00 [facility] Weight 2012-01-25 22:03:00 [facility] Height 2012-01-25 22:03:00 167.64 cm [facility] [place] Weight 2011-08-20 01:02:00 [facility] Height 2011-08-20 01:02:00 165.10 cm [facility] Procedures Procedure Date / Time Performed Performing Clinician [facility] e Upper GI endoscopy 2019-03-12 05:00:00 [facility] Cataract surgery 2014-01-13 05:00:00 [facility] rmann Total replacement of left knee joint 2011-03-22 05:00:00 [facility] Arthroscopy 2000-07-02 00:00:00 [facility] kohlre Repair of umbilical hernia 1996-07-02 00:00:00 [facility] [place] Hysterectomy [facility] Abdomen endoscopy [facility] nn Biopsy of liver [facility] Colonoscopy [facility] Cystoscopy [facility] Plan of Care Planned Activity Planned Date Details Comments Source Future Scheduled Test 2020-01-31 00:00:00 INFLUENZA VACCINE [code = INFLUENZA VACCINE] [facility] Future Scheduled Test 2013-05-21 15:01:57 Plan of Care [code = 1877 6-5] [facility] Scheduled Test 2000 00:00:00 65+ PNEUMOCOCCAL V ACCINE (1 of 1 - PPSV23) [code = 65+ PNEUMOCOCCAL VACCINE (1 of 1 - PPSV23)] [facility] Scheduled Test 1985 00:00:00 SHINGLES VACCINES (#1) [code = SHINGLES VACCINES (#1)] [facility] Encounters Start Date/Time End Date/Time Encounter Type Admission Type Attendi [facility] Care Department Encounter ID Source 2019-11-06 12:44:08 Outpatient [facility] [id number] [facility] 2020-03-11 12:40:00 2020-03-11 23:59:00 Outpatient Abbe Gregorio [facility] [id number] 2020-03-11 12:40:00 2020-03-11 12:40:00 Outpatient [facility] [id number] [facility] 2019-12-03 14:07:45 2019-12-04 23:59:59 Outpatient [id number] 2019-05-08 13:51:00 2019-05-08 23:59:00 Outpatient Abbe Gregorio [facility] [id number] 2019-05-08 13:51:00 2019-05-08 13:51:00 Outpatient [facility] [id number] [facility] 2019-05-01 06:58:00 2019-05-05 15:00:00 Outpatient Abbe Gregorio [facility] [id number] 2019-05-01 06:58:00 2019-05-01 06:58:00 Outpatient [facility] [id number] [facility] 2019-03-12 08:11:00 2019-03-12 14:00:00 Outpatient Abbe Gregorio [facility] [id number] 2019-03-12 08:11:00 2019-03-12 08:11:00 Outpatient [facility] [id number] [facility] 2019-02-06 09:25:00 2019-02-06 23:59:00 Outpatient Abbe Gregorio [facility] [id number] 2019-01-23 13:51:00 2019-01-23 23:59:00 [facility] [id number] 2019-01-23 13:51:00 2019-01-23 13:51:00 Outpatient [facility] [id number] [facility] 2019-01-08 14:51:00 2019-01-08 23:59:00 Outpatient Starla Benavides [facility] [id number] 2018-12-12 15:12:00 2018-12-12 23:59:00 Outpatient Claudio Lara [facility] [id number] 2018-12-12 15:12:00 2018-12-12 15:12:00 Outpatient MH [facility]HH [id number] [facility] 2017-10-18 12:11:00 2017-10-18 13:35:00 Departed Emergency Room [facility] [id number] [facility] 2017-08-08 10:44:00 2017-08-08 12:40:00 Departed Emergency Room [facility] [id number] [facility] 2017-03-08 03:32:00 2017-03-08 09:42:00 Outpatient Zaina Le kira Martínez [facility] [id number] 2016-03-28 12:35:00 2016-03-28 23:59:00 [facility] [id number] 2016-03-14 09:43:00 2016-03-14 13:00:00 Outpatient Raimundo Marsh [facility] [id number] 2016-02-28 10:29:00 2016-02-28 23:59:00 [facility] [id number] 2016-02-07 09:32:00 2016-02-07 23:59:00 Outpatient Mpi an, Non Associated [facility] [id number] 2016-01-31 08:36:00 2016-01-31 23:59:00 Outpatient Raimundo Marsh [facility] [id number] 2015-12-17 09:23:00 2015-12-17 23:59:00 Outpatient Martina Fidencio Eric [facility] [id number] 2015-07-26 11:44:00 2015-07-27 18:26:00 Outpatient William José Fidencio [facility] [id number] 2014-10-06 17:16:00 2014-10-09 12:30:00 Outpatient JanicePadmini you [place] [id number] 2014-06-16 10:42:00 2014-06-16 23:59:00 Outpatient Tatianaclive Ancelmo scottie Tunde [place] [id number] 2013-11-21 09:12:00 2013-11-21 23:59:00 Outpatient Jerridang Montse [place] [id number] 2013-11-20 09:41:00 2013-11-20 14:00:00 Outpatient Trinh Atkandice [place] [id number] 2013-11-17 13:08:00 2013-11-17 23:59:00 Outpatient ErtMontse leong [place] [id number] 2013-05-21 09:01:57 2013-05-21 09:01:57 Outpatient IE IE [id number] 2013-05-13 14:07:00 2013-05-13 21:10:00 Outpatient MHIE IE [id number] [facility] Results Test Description Test Time Test Comments Results Result Comments Source CXR 1 VEW - HOPD 2020-05-09 16:58:00 [facility] YOU[facility]INA Gonzalez : 1935 Sex: F [facility] [address] [address] Patient Name: KIM YOUNG MR #: [id number] : 1935 Age/Sex: 84/F Req #: [id number] Adm Physician: Ordered by: LYLA BLANTON MD Report #: [id number] Location: [facility] Room/Bed: Procedure: [id number] HOPD/CXR 1 VEW - HOPD Exam Date: 05/09/20 Exam Time: 1642 REPORT STATUS: Signed EXAMINATION: CXR 1 VIEW - HOPD COMPARISON: Report of chest x-ray performed 01/02/2016. Images are not available for comparison INDICATION: chest pain [id number] DISCUSSION: Frontal view of the chest obtained at 1651 hours. HEART AND MEDIASTINUM: The heart is normal in size. The aorta is mildly tortuous LINES: None. LUNGS: The lungs are well inflated and clear. No pneumonia or pulmonary edema. PLEURA: Mild eventration of the right diaphragm. No pleural effusion or pneumothorax. BONES AND SOFT TISSUES: Degenerative changes of the spine. No focal osseous lesion.. The soft tissues are normal. IMPRESSION: No acute cardiopulmonary disease. Signed by: Dr. Jessica Crane MD on 05/09/2020 4:59 PM Dictated By: JESSICA CRANE MD 58 Transcribed By: JOON on 05/09/201658 COPY TO: LYLA BLANTON MD SCR MAMM BILATERAL JACOB CAD DIGITAL 2020-01-14 08:12:08 - SCR MAMM BILATERAL JACOB CAD DIGITALBILATERAL DIGITAL SCREENING MAMMOGRAM 3D/2D WITH CAD: 01/13/2020CLINICAL: Asymptomatic. Digital breast tomosynthesis was performed in addition to routine CC and MLO views. Current mammographic images were evaluated by either a VuCOMP M-Vu or a Hologic ImageChecker CAD (computer aided detection system). Comparison is made to exams dated 09/05/2018 mammogram, 2017 mammogram, and [facility]. The tissue of both breasts is predominantly fatty. No suspicious mass, architectural distortion, malignant type calcification, or lymph node abnormality detected. Breast architecture is stable compared to prior exams.IMPRESSION: NEGATIVEThere is no mammographic evidence of malignancy. Resume annual screening mammography in one year. Filippo Hendrickson M.D. /penrad:01/14/2020 08:12:08 Entry: - 01/14/2020 08:12:08Imaging Technologist: Vicky Abreu , [facility] BIRADS 1-2 Normal Mammogram BI-RADS: 1 Negative SCR MAMM BILATERAL JACOB CAD DIGITAL 2018-09-05 10:35:25 - SCR MAMM BILATERAL JACOB CAD DIGITALBILATERAL DIGITAL SCREENING MAMMOGRAM 3D/2D WITH CAD: 09/05/2018CLINICAL: Asymptomatic. Digital breast tomosynthesis was performed in addition to routine CC and MLO views. Current mammographic images were evaluated by either a VuCOMP M-Vu or a Hologic ImageChecker CAD (computer aided detection system). Comparison is made to exams dated 08/22/2017 mammogram, 07/02 mammogram, and 04/26/2015 [facility]. The tissue of both breasts is predominantly fatty. No suspicious mass, architectural distortion, malignant type calcification, or lymph node abnormality detected. Breast architecture is stable compared to prior exams.IMPRESSION: NEGATIVEThere is no mammographic evidence of malignancy. Resume annual screening mammography in one year. Terrie Joe M.D. dm/penrad:09/05/2018 10:35:25 Accounting Professor: Feli Begum , [facility]FW[facility] sent: BIRADS 1-2 Normal Mammogram BI-RADS: 1 Negative CARDIAC ENZYMES 2017-03-08 09:48:00 <0.02 [facility] 2017-03-08 09:48:00 11.2 [facility] [place] ELECTROLYTES 2017-03-08 09:48:00 17 [facility] [place] ELECTROLYTES 2017-03-08 09:48:00 1.01 [facility] ELECTROLYTES 2017-03-08 09:48:00 145 [facility] [place] ELECTROLYTES 2017-03-08 09:48:00 4.2 [facility] ELECTROLYTES 2017-03-08 09:48:00 9.3 [facility] [place] ELECTROLYTES 2017-03-08 09:48:00 109 [facility] ELECTROLYTES 2017-03-08 09:48:00 29 [facility] ELECTROLYTES 2017-03-08 09:48:00 121 [facility] ELECTROLYTES 2017-03-08 09:48:00 52 [facility] HEMATOLOGY 2017-03-08 09:48:00 66.7 [facility] [place] HEMATOLOGY 2017-03-08 09:48:00 19.8 [facility] HEMATOLOGY 2017-03-08 09:48:00 8.8 [facility] HEMATOLOGY 2017-03-08 09:48:00 0.7 [facility] HEMATOLOGY 2017-03-08 09:48:00 0.5 [facility] [place] HEMATOLOGY 2017-03-08 09:48:00 4.2 [facility] HEMATOLOGY 2017-03-08 09:48:00 5.0 [facility] [place] HEMATOLOGY 2017-03-08 09:48:00 0.3 [facility] HEMATOLOGY 2017-03-08 09:48:00 1.5 [facility] [place] HEMATOLOGY 2017-03-08 09:48:00 31.5 [facility] HEMATOLOGY 2017-03-08 09:48:00 8.1 [facility] [place] HEMATOLOGY 2017-03-08 09:48:00 198 [facility] HEMATOLOGY 2017-03-08 09:48:00 15.3 [facility] HEMATOLOGY 2017-03-08 09:48:00 32.8 [facility] HEMATOLOGY 2017-03-08 09:48:00 83.2 [facility] [place] HEMATOLOGY 2017-03-08 09:48:00 Test Item MCH (test code = MCH) 26.2 pg 27.0-31.0 [facility]XKBMVTZUKZ7424-59-44 09:48:0010.3[facility] 2017-03-08 09:48:003.95[facility] VfmyvuyYPQKSSHRRQ2023-97-81 09:48:007.6[facility] HermannCHEM [id number] 11:24:002.1[facility] HermannCHEM [id number] 11:24:004.3[facility] HermannCHEM [id number] 11:24:0026[facility] HermannCHEM PYSCX7139-74-18 11:24:60036Gavnybcr HermannCHEM [id number] 11:24:69935 [facility]annCHE[facility] [id number] 11:24:004.1[facility]annCHEM PANEL 2015-07-27 11:24:008.6[facility]annCHEM [id number] 11:24:001.26[facility] HermannCHEM [id number] 11:24:88460Lorkllcv HermannCHEM HGEGB4521-70-99 11:24:0030[facility] HermannCHEM [id number] 11:24:0011.1[facility] HermannCHEM [id number] 11:24:0040[facility] HermannCARDIAC [id number] 00:37:00< 0.010[facility]annCARDIAC LFYYZFQ2255-28-42 00:37:00<0.02[facility] CARDIAC [id number] 00:37:96780Qzfkgpbh HermannCARDIAC [id number] 00:37:001.7[facility] HermannCARDIAC [id number] 00:37:001.6[facility] CHEM [id number] 00:37:001.7[facility] HermannCHEM [id number] 00:37:0042 [facility]annCHEM [id number] 00:37:009.1[facility]annCHEM PANEL 2015-07-27 00:37:0013.4[facility]annCHEM [id number] 00:37:0027[facility] HermannCHEM [id number] 00:37:21724Qeiwmtgt HermannCHEM NFXTJ5364-16-82 00:37:003.4[facility]annCHEM AIJPB3899-75-67 00:37:90428Fjmeersi HermannCHEM PWTZX5582-70-11 00:37:001.22[facility]annCHEM OKRRE9811-56-16 00:37:0083 [facility]CHE[facility] IYQUQ0069-31-13 00:37:0022[facility] SkskdelFIXVSJ5606-65-39 00:37:0031[facility] FdjedgfWIMMQT7591-92-63 00:37:0030[facility] HermannLIPIDS 2015-07-27 00:37:90202Ejtyztws BumrdofFNAIWD1178-13-91 00:37:0062[facility] CkrowcmLHFDMS0369-24-23 00:37:001.98[facility] QcafslxOPUOIK6016-15-86 00:37:37525 [facility]annSPECIAL DXWPSQWKI9157-74-06 00:37:008.1[facility]annCARDIAC KFQXDTG7814-63-46 19:02:23900Afyjzfgs HermannCARDIAC BBTMRJP2871-33-03 19:02:00< 0.02[facility]annCHEM NDHWR6621-89-04 19:02:46359Qbhtfifr HermannCHEM PANEL 2015-07-26 19:02:001.6[facility]annCHEM LSEYU9246-20-61 19:02:003.7[facility]annCHEM VGIMF4020-90-70 19:02:0037[facility]annCHEM OZVOK8740-22-66 19:02:36382Czdgdqon HermannCHEM XPAVU5368-39-14 19:02:0031[facility]annCHE[facility] YBNZG6786-52-29 19:02:009.5[facility]annCHEM VPAZB5638-28-83 19:02:0023 [facility]CHE[facility] BUNRM6496-66-01 19:02:03386Aexmynua HermannCHEM PANEL 2015-07-26 19:02:004.4[facility]annCHEM KNPEE7511-06-95 19:02:001.35[facility]annCHEM PQSLK8289-75-02 19:02:42781Otddbnse HermannCHEM QWMOR4075-40-08 19:02:000.5[facility]annCHEM TCIGY8435-10-54 19:02:003.7[facility]annCHEM UUEIF7126-90-54 19:02:0019[facility]annCHEM IYUJZ7153-36-63 19:02:64033 [facility]annCHE[facility] JDUTT3814-90-17 19:02:0026[facility]annCHEM PANEL 2015-07-26 19:02:007.3[facility]annCHEM EHYGJ0990-25-96 19:02:0011.4[facility]annCHEM BPGND3458-10-16 19:02:0017[facility]annCHEM HZUOR2780-28-97 19:02:003.6[facility]annCHEM OYKGI4825-26-76 19:02:001.0[facility]annCHEM XJOVZ0803-99-58 19:02:001.2[facility] GusipfqKLPYNQNHBG4308-79-49 19:02:0018.5 [facility] EnayvroYRZWTRTJCV6207-89-57 19:02:006.3[facility]annHEMATOLOGY 2015-07-26 19:02:003.6[facility] FtfomcaHPCYVFWFIR4827-77-00 19:02:0071.1[facility] JqbdzhsLHLZQNIDEC6291-78-00 19:02:000.5[facility] KrwqywvGZBOKOHMOS6371-33-10 19:02:005.4[facility] DozlzsiJPTEWSPHSQ6037-41-38 19:02:001.4[facility] [place] ZWRLTUTEBZ9441-07-56 19:02:000.5[facility] ZtviwtbLPVJOLVCZX9792-47-85 19:02:000.3 [facility] OeanzzpWNGBROSDCI6274-54-29 19:02:008.5[facility]annHEMATOLOGY 2015-07-26 19:02:73987Nwskbiwh WyraxsjDFQNSJFBUU6080-87-65 19:02:0014.2[facility] LtxxepzQAZDPJBTQS1429-02-36 19:02:0087.8[facility] UvgzmboFPZNEUAQPZ4919-51-77 19:02:0037.2[facility] IhnzvipZYEFXYEEVU9923-21-98 19:02:00* Test Item Value Reference Range Interpretation Comments MCH (test code = MCH) 27.5 pg 27.0-31.0 [facility] KpcuhkqOXGEBCKAUH9207-25-26 19:02:0011.7[facility]annHEMATOLOGY 2015-07-26 19:02:0031.3[facility] LrpmvudCYSDZYUORA2293-81-91 19:02:004.24[facility] JgroncdSOVRQDMJDR1481-57-28 19:02:007.7[facility] UvkumjpGAGFKQNALP2396-35-68 19:02:000.94[facility] SawpuqtJHKVHVCSLE7514-32-65 19:02:00* Test Item Value Reference Range Interpretation Comments PT (test code = PT) 12.9 s 12.0-14.7 [facility] GUBVC0575-74-35 19:02:00Clear (07/26/15 1:02 PM) [facility] PVOCI4335-91-00 19:02:00* Test Item Value Reference Range Interpretation Comments UA Spec Grav (test code = UA Spec Grav) 1.010 1 [facility] MFUCF7347-72-27 19:02:00Yellow *NA*(07/26/15 1:02 PM) [facility] GLNXJ1564-34-92 19:02:00Negative (07/26/15 1:02 PM) [facility] DSTUS9574-74-06 19:02:00Negative (07/26/15 1:02 PM) [facility] TYAII5806-01-13 19:02:000.2[facility] GLSSJ4836-79-41 19:02:00Negative (07/26/15 1:02 PM)[facility] AAYQD5060-85-86 19:02:00Negative *NA*(07/26/15 1:02 PM)[facility] BWUNI2250-07-51 19:02:00* Test Item Value Reference Range Interpretation Comments UA pH (test code = UA pH) 6.5 1 5.0-8.0 [facility] VNLFJ3526-87-23 19:02:00None Seen (07/26/15 1:02 PM) [facility] HNQBH0877-54-31 19:02:00None Seen (07/26/15 1:02 PM) [facility] GYZBL5060-52-47 19:02:00None Seen (07/26/15 1:02 PM) [facility] GymfnefMVXJAMWSFZNZ8999-70-21 06:14:0010.8[facility] HermannELECTROLYTES 2014-10-09 06:14:0030[facility] WrumgkkMBPMGZJPRJJO4062-51-19 06:14:003.8[facility] XzkgkalXVAZVYAYUXUP5830-99-81 06:14:64149Mvpngyrw NdnajppYJUAMQXCOFET7544-18-80 06:14:0029[facility] IedzamzFRSMWBOUXCTW4827-05-91 06:14:73410Mxgrsqwn [place] WVKTZKIJAPMD1262-26-46 06:14:001.6[facility] CnepldsHDMKMQDBXYMQ3050-11-36 06:14:0026[facility] OnuhztpIPOWOIRTDYEY0373-03-87 06:14:0096[facility] [place] PPDMFXHZQJXN6561-99-70 06:14:008.6[facility] OryjdskRRZTZTBTEG8834-95-66 06:14:00 13.6[facility] ZjbgecdNEJCPAVMOD4534-37-77 06:14:81529Gjuxyffm HermannHEMATOLOGY 2014-10-09 06:14:009.1[facility] SujfladFIHMNCROKG3802-69-34 06:14:0010.7[facility] ZryuqqgBTGPDTIRJT2803-90-10 06:14:0032.5[facility] BvrwhdwCOTHAGGRLJ2610-20-32 06:14:0085.0[facility] AncsjoeGGFASMACQR6841-73-60 06:14:00* Test Item Value Reference Range Interpretation Comments MCH (test code = MCH) 28.0 pg 27.0-31.0 [facility] LmhjpkcTPNIXBBZJY0586-59-87 06:14:0032.9[facility] HermannHEMATOLOGY 2014-10-09 06:14:007.1[facility] GsqgnlcJMLGHMPTBK1666-40-19 06:14:003.82[facility] PorocjyOOXLSBWCHS4840-68-06 06:14:009.4[facility] EcgnfexBNFKOMIXHV2614-73-72 06:14:005.0[facility] VirandgJJRCKQDGYX8998-18-32 06:14:000.6[facility] TZTMWJNXFJ5500-76-16 06:14:004.4[facility] GhyyhabWQRMZFNKDK1386-14-72 06:14:001.7 [facility] OvmrdhoQSTESJTTST7242-32-36 06:14:0061.0[facility] HermannHEMATOLOGY 2014-10-09 06:14:0024.0[facility] QrxevddLAKDJFLAPT2146-34-14 06:14:000.4[facility] XepqkzeUJZLQIONAS9349-50-37 06:14:000.7[facility]annCHEM DLPYZ1811-82-92 14:06:0036[facility]annCHEM ZAFXU9303-95-45 14:06:17305Ryqgjaob HermannCHEM MDIFO5852-35-31 14:06:003.9[facility]annCHEM OGONS4289-51-39 14:06:29981 [facility]CHE[facility] EVFJA0567-68-31 14:06:001.4[facility]annCHEM PANEL 2014-10-07 14:06:0032[facility]annCHE[facility] DSZJB9110-27-24 14:06:008.9[facility]annCHE[facility] LSPFK4131-56-88 14:06:0013.9[facility]annCHEM PYXII9228-55-10 14:06:0028[facility]annCHE[facility] SIIVW7273-89-17 14:06:39103Zdmkalec Le[facility] HSMRVGXSKQ4924-62-38 14:06:004.32[facility] NxhbaikEAARZQMBXK1927-12-76 14:06:00 37.1[facility] ClanxleGHVAZRTCWL1527-89-86 14:06:008.7[facility] HermannHEMATOLOGY 2014-10-07 14:06:0012.2[facility] BxncmepJDWRLNSKBQ0805-58-81 14:06:0085.8[facility] OtktjqgBPBLGBQDCH3458-51-52 14:06:85353Ywfbzhhw VawkmloNAAFDQIAGC8040-34-79 14:06:00* Test Item Value Reference Range Interpretation Comments MCH (test code = MCH) 28.2 pg 27.0-31.0 [facility] VwjflgtIHGUHFENMZ3042-55-88 14:06:0032.9[facility] HermannHEMATOLOGY 2014-10-07 14:06:0013.5[facility] KgmesioENSHFOSFRT3229-59-09 14:06:009.6[facility] LnjeeupZVQMSOGHQQ3312-39-47 14:06:009.0[facility] LzgyzrcYRNFHLBVFU9990-48-81 14:06:003.3[facility] ZsyrwqsPEUYERIEOD8587-31-79 14:06:000.6[facility] RXUIQYFPBE5821-61-15 14:06:001.4[facility] KlixxpjUDTTQDADHC3058-88-76 14:06:00 71.0[facility] EqhfwahJVATGUAROJ3301-73-89 14:06:0016.1[facility]annHEMATOLOGY 2014-10-07 14:06:006.2[facility] VwamiegQJTNXYUUMS5370-62-06 14:06:000.8[facility] OafsbcbXVKCUYXOTU9729-69-83 14:06:000.3[facility]annCHEM VMPQK9829-49-56 03:56:001.5[facility]annCHEM EBESW2763-20-23 03:56:0023[facility]annCHEM JJMFW8769-77-92 03:56:000.6[facility]annCHEM IGYLC2345-32-10 03:56:0097 [facility]annCHE[facility] AFSHP0622-48-89 03:56:002.9[facility] HermannCHEM PANEL 2014-10-07 03:56:004.0[facility]annCHEM HJOMM9974-92-68 03:56:000.8[facility]annCHEM RTZGT5165-80-96 03:56:0024[facility]annCHEM ZGSQL8923-44-78 03:56:0077[facility]annCHEM QETBW0126-16-04 03:56:0014[facility]annCHEM OAJMN6438-30-52 03:56:80773Cmffzlua HermannCHEM NMGEL7580-48-94 03:56:0018 [facility]annCHE[facility] CTGFU1542-22-35 03:56:008.9[facility]annCHEM PANEL 2014-10-07 03:56:003.3[facility]annCHEM AWVNW7167-75-93 03:56:0013.9[facility]annCHEM QSGAA5204-96-58 03:56:0028[facility]annCHE[facility] DVQIM4611-76-05 03:56:42666Valbiqwf HermannCHEM TDLIT9711-59-26 03:56:002.0[facility]annCHEM ERWFK2657-88-89 03:56:0035[facility]annCHEM PHEBM9917-82-36 03:56:007.3 [facility]annCHE[facility] PSEXJ5137-61-73 03:56:0011.1[facility] HermannHEMATOLOGY 2014-10-07 03:56:96443Mxfjsrwn SibmiowNBSJFXDTWR1088-95-81 03:56:0013.4[facility] YigouuiOWPXCOZSQM6465-89-61 03:56:0033.6[facility] CnhkgwsRQZUNDSLOO2502-69-46 03:56:008.6[facility] MjcvykwBUNIJBPTPJ5839-63-93 03:56:004.15[facility] CIVMKNUUIK5420-11-32 03:56:0010.5[facility] OwavvxkGUKOVCPCDJ3509-72-63 03:56:00 85.5[facility] WvhybruSQOVPMFFMS6952-98-02 03:56:0011.9[facility] HermannHEMATOLOGY 2014-10-07 03:56:0035.5[facility] NgfxmjuWLUQXQYYNF3915-10-56 03:56:00* Test Item Value Reference Range Interpretation Comments MCH (test code = MCH) 28.7 pg 27.0-31.0 [facility] SsctmgmUGWBSXVUIO0343-25-37 03:56:001.08[facility]annHEMATOLOGY 2014-10-07 03:56:00* Test Item Value Reference Range Interpretation Comments PT (test code = PT) 14.1 s 12.0-14.7 [facility] XhsklxnKLNTHTGAHN5511-23-52 03:56:00* Test Item Value Reference Range Interpretation Comments PTT (test code = PTT) 33.7 s 22.9-35.8 [facility] AgdrnxmTYMZQQTPSW5001-94-29 03:56:0073.3[facility] HermannHEMATOLOGY 2014-10-07 03:56:001.5[facility] QwpqtprCTIEYZTGWP2722-10-18 03:56:0017.1[facility] HcgluaeECMNVCKKCT2933-88-31 03:56:000.5[facility] SquiwmmMYCMQZOIDB8066-55-13 03:56:007.6[facility] TfulzpdWJKGOSXJQH5856-44-29 03:56:007.7[facility] NKGQZDEHHS7981-33-27 03:56:001.8[facility] VzgzbpwHDLFQFEAUT6299-69-13 03:56:000.2 [facility] QfouuvnEGSHMHTSLB9264-22-07 03:56:000.8[facility] HermannHEMATOLOGY 2014-10-07 03:56:000.1[facility] CtxxdpdYPJGCCWOAD7110-94-36 02:29:00Negative (05/13/2013 20:29:00) [facility] ZgpqeoyKWFAVOGWHC9240-82-10 02:29:000.2[facility] FvyrtyjCKGDBGIYTI6753-21-78 02:29:00Trace *ABN*(05/13/2013 20:29:00) [facility] QsjjzlrKQJZHBZJLW6331-73-76 02:29:00Negative *NA*(05/13/2013 20:29:00) [facility] VrpqhyqWCTYPUVEBX5543-46-33 02:29:00Small *ABN*(05/13/2013 20:29:00) [facility] AxweurqIIINPPEPHG6851-06-96 02:29:00Negative *NA*(05/13/2013 20:29:00) [facility] VaeurpoYVQFJQWYZZ4591-22-77 02:29:00Negative (05/13/2013 20:29:00) [facility] SopvsnsRTAFDVMEDH1265-35-97 02:29:00* Test Item Value Reference Range Interpretation Comments UA pH (test code = UA pH) 6.0 1 5.0-8.0 N [facility]JhgfdebUFTFRBPAVZ0770-64-54 02:29:00Yellow *NA*(05/13/2013 20:29:00) [facility] MarshallFcecrfyNBCLYDMVDP3082-97-19 02:29:00Negative (05/13/2013 20:29:00) [facility] MarshallGvtxiycRJJPFRIFFA6619-59-21 02:29:00* Test Item Value Reference Range Interpretation Comments UA Spec Grav (test code = UA Spec Grav) 1.015 1 N [facility] MarshallXlypltsISENAOEUDR7570-22-79 02:29:00Clear (05/13/2013 20:29:00) [facility]pahoswCDEICJNFBT9332-70-45 02:29:00None Seen (05/13/2013 20:29:00) [facility] MarshallDkkpiwyMKJTVRAYGH7072-17-88 21:00:48Performed (05/13/2013 15:00:48) [facility] CenterIaqrwaiISKEOKDOIU2092-58-87 21:00:48* Test Item Value Reference Range Interpretation Comments UA pH (test code = UA pH) 6.0 1 5.0-8.0 N [facility]YdbdyhbYVFYLIPWWX2296-08-29 21:00:48Negative (05/13/2013 15:00:48) [facility] CenterZiyziqxUFPJCXXLVK2880-84-10 21:00:48Negative *NA*(05/13/2013 15:00:48) [facility] MarshallAbpssqpLQORLSRNZK6800-51-34 21:00:48Negative (05/13/2013 15:00:48) [facility] MarshallFjuhupdMRRKZZZAHQ0919-69-97 21:00:48Yellow *NA*(05/13/2013 15:00:48) [facility] MarshallQiweigfVDPZTWGFWQ3307-72-36 21:00:48Clear (05/13/2013 15:00:48) [facility] MarshallIyzrijaRNADZBGUMN8713-76-35 21:00:48* Test Item Value Reference Range Interpretation Comments UA Spec Grav (test code = UA Spec Grav) 1.005 1 N [facility] MarshallXamfxdwUACRRKOOIA9423-19-11 21:00:48Negative *NA*(05/13/2013 15:00:48) [facility] NwnoqeyXFVLSBZSNF0116-63-49 21:00:48Moderate *ABN*(05/13/2013 15:00:48) [facility] XjldibaPVIKBRMFVJ2168-66-50 21:00:48Negative (05/13/2013 15:00:48) [facility] WqvhbukBNUGXRZQRE2405-38-49 21:00:48Negative (05/13/2013 15:00:48) [facility] UiivrigCXNAFTLHVF6872-24-34 21:00:480.2[facility] HermannURINALYSIS 2013-05-13 21:00:48None Seen (05/13/2013 15:00:48) [facility]UR[facility]ALYSIS 2011-08-20 03:15:00Trace *ABN*(08/19/2011 21:15:00) [facility]URINALYSIS 2011-08-20 03:15:00Negative (08/19/2011 21:15:00) [facility]URINALYSIS 2011-08-20 03:15:000.2[facility] UfhbdptGCGTCMNLHI8844-02-45 03:15:00Negative *NA*(08/19/2011 21:15:00) [facility] SgpbstsVGIAMOFHPK7992-27-78 03:15:00Negative *NA*(08/19/2011 21:15:00) [facility] UgomcbmMGKQVUXKVF5039-43-25 03:15:000-2 /HPF (08/19/2011 21:15:00) [facility] JtwzlvlFXJVSFEMKV8694-48-08 03:15:00Few /LPF (08/19/2011 21:15:00) [facility] RolinysDTUOTYWXHJ9960-61-82 03:15:00Few /HPF (08/19/2011 21:15:00) [facility] YqvxyhcZAIQJMWMOP4062-06-29 03:15:000-2 /HPF (08/19/2011 21:15:00) [facility] RmlbrjxLYKGOAQKMR2528-04-33 03:15:00Performed (08/19/2011 21:15:00) [facility] JdmsbysPJFZPCGPFH9549-94-47 03:15:00Negative (08/19/2011 21:15:00) [facility] YurdsyrWKRFJVEJEL7296-84-66 03:15:00* Test Item Value Reference Range Interpretation Comments UA pH (test code = UA pH) 6.0 1 5.0-8.0 N [facility] PosvymnMLEHBLFUQL5915-76-24 03:15:00Negative (08/19/2011 21:15:00) [facility] PeavyfaHBSDUKXMNF2877-27-33 03:15:00Negative (08/19/2011 21:15:00) [facility] KmlifbsPMIMQXJOTK5727-17-06 03:15:00Clear (08/19/2011 21:15:00) [facility] YmfgggsSAYBNRKGYV9820-76-57 03:15:00Yellow *NA*(08/19/2011 21:15:00) [facility] AszlgglRIQMWDUZFH8909-12-11 03:15:00* Test Item Value Reference Range Interpretation Comments UA Spec Grav (test code = UA Spec Grav) 1.020 1 N [facility] KerdwkoPKUOAOKFM4145-00-99 01:24:93918Gbhrcggt HermannCHEMISTRY 2011-08-20 01:24:24799Ipzkexsq JgankmpSFZRHNIYY2387-59-42 01:24:0020[facility] DqefvemKXYBUHBTX5792-02-45 01:24:001.1[facility] GvhvsusRXYQVWPDB3951-72-21 01:24:008.6[facility] WaqgouhQQRZSTKSB4591-39-28 01:24:14271Wvdgijnz [facility] AOWJZUEBE0525-92-01 01:24:003.7[facility] UhyweaqAVUDTCBZA2279-41-24 01:24:0029 [facility] MkfedwbTZNTJUOVN1778-86-91 01:24:0010.7[facility] HermannCHEMISTRY 2011-08-20 01:24:003.6[facility] RpspalwTAWOSAXQC5871-79-82 01:24:99890Giqhygcr VnkztwdWHGKYNWMU8182-97-48 01:24:001.9[facility] FlsxqkePIRASZUCT3214-65-44 01:24:00<0.02[facility] FydohlqEBDDVPJKR2498-83-83 01:24:00<0.010[facility] [place] FBRSJSUIB2107-90-47 01:24:001.2[facility] UpcidbsROHCWDFGZ5061-37-59 01:24:001.4 [facility] VzevhxrDJDZRSBLFX7077-12-45 01:24:00* Test Item Value Reference Range Interpretation Comments PTT (test code = PTT) 30.9 s 22.9-35.8 N [facility] YeynzfyNVHHSMMPQR3860-70-63 01:24:00* Test Item Value Reference Range Interpretation Comments PT (test code = PT) 12.2 s 12.0-14.7 N [facility] HgpfvfzQNSXWPLNXR2629-65-36 01:24:000.90[facility]annHEMATOLOGY 2011-08-20 01:24:0036.8[facility] XvpmnneYQDMQPOKYC8812-21-51 01:24:0011.9[facility] PgnzpsuUVGCRATLRL3998-20-45 01:24:004.30[facility] JkjztzxZLIHROQACR8205-39-66 01:24:0085.6[facility] PjnawuxEISHKXIXLL4221-16-45 01:24:0013.8[facility] [place] YVUZLLQZSQ2264-88-29 01:24:36224Rhwfwjpy OpcngooNKRAQVYWFK6339-92-58 01:24:00* Test Item Value Reference Range Interpretation Comments MCH (test code = MCH) 27.7 pg 27.0-31.0 N [facility] NrbjtxaNWVMEQAATC9447-88-26 01:24:0032.3[facility] HermannHEMATOLOGY 2011-08-20 01:24:008.4[facility] CidviwiXVWNWFGUDD9216-77-68 01:24:006.4[facility] HyqsgesHTENIURRTR5046-47-05 01:24:000.2[facility] RkrsmzgGHXMAHRYDA5111-27-58 01:24:000.6[facility] OofckgkLBEESELAHN5218-72-98 01:24:000.2[facility] NNCVYTLKZK9538-50-19 01:24:003.3[facility] QkuwrcxIKKZFFWWZG4224-43-44 01:24:002.3 [facility] StmheyjAAMRJXSYXW4616-73-89 01:24:000.0[facility] HermannHEMATOLOGY 2011-08-20 01:24:0035.3[facility] AfwheskYHDTAXENKD7845-98-18 01:24:0051.1[facility] AwixqrrXYLYPCIUEF6251-36-14 01:24:003.3[facility] KimuxhtJOMGBXQSRD6531-29-56 01:24:0010.1[facility]
[2020-05-09] MEDS ORDERED: NITROGLYCERIN 2% OINT 1 GM PKT ONE (20:51)
[2020-05-09] MEDS: NITROGLYCERIN 2% OINT 1 GM PKT TOP SCH (20:53)
[2020-05-09 22:20] VITALS: BP 179/71
[2020-05-09] MEDS ORDERED: METFORMIN HCL500 M2 PO (22:22)
[2020-05-09] MEDS ORDERED: ULTRAM50 MG PO (22:22)
[2020-05-09] MEDS ORDERED: GABAPENTIN100 MG PO (22:22)
[2020-05-09] MEDS ORDERED: LANTUS 3ML100 UNITS/ SC (22:22)
[2020-05-09] MEDS ORDERED: PRANDIN2 MG PO (22:22)
[2020-05-09 22:29] VITALS: BP 179/71
[2020-05-09] MEDS ORDERED: HYDRALAZINE HCL 20 MG/ML VIAL IV PRN (22:30)
[2020-05-09] MEDS ORDERED: BENZONATATE 100 MG CAP PO PRN (22:30)
[2020-05-09] MEDS ORDERED: POLYETHYLENE GLYCOL 3350 17 GM PACK PO PRN (22:30)
[2020-05-09] MEDS ORDERED: ALBUTEROL/IPRATROPIUM 3 ML NEB NEB PRN (22:30)
[2020-05-09] MEDS ORDERED: MELATONIN 5 MG TABLET PO PRN (22:30)
[2020-05-09] MEDS ORDERED: DOCUSATE SODIUM 100 MG CAP PO PRN (22:30)
[2020-05-09] MEDS ORDERED: TRAMADOL HCL 50 MG TAB PO PRN (22:30)
[2020-05-09] MEDS ORDERED: DEXTROSE 50% SYRINGE 50 ML IV PRN ×2 (22:30)
[2020-05-09] MEDS: REPAGLINIDE 1 MG TAB PO SCH (22:45)
[2020-05-09] MEDS: GABAPENTIN 100 MG CAP PO SCH (23:09)
[2020-05-09] MEDS: ASPIRIN 81 MG ENTERIC COATED PO SCH (23:09)
[2020-05-09] MEDS: ALLOPURINOL 100 MG TAB PO SCH (23:09)
[2020-05-10] VITALS (9 sets, daily range): BP systolic 115–144; BP diastolic 50–77
[2020-05-10 03:56] LABS: BASOPHILS # (AUTO) 0.1 (0.0-0.1); BASOPHILS % 0.6 % (0.0-1.0); EOSINOPHILS # (AUTO) 0.4 (0.0-0.4); EOSINOPHILS % 4.5 % (0.0-6.0); HEMATOCRIT 32.3 % (34.2-44.1); HEMOGLOBIN 9.9 g/dL (12.0-16.0); LYMPHOCYTES # (AUTO) 1.8 (1.0-3.2); LYMPHOCYTES % 22.7 % (18.0-39.1); MEAN CORPUSCULAR HEMOGLOBIN 27.1 pg (28-32); MEAN CORPUSCULAR HGB CONC 30.7 g/dL (31-35); MEAN CORPUSCULAR VOLUME 88.5 fL (81-99); MONOCYTES # (AUTO) 0.6 (0.2-0.8); MONOCYTES % 7.4 % (4.4-11.3); NEUTROPHILS # (AUTO) 5.1 (2.1-6.9); NEUTROPHILS % 64.5 % (38.7-80.0); PLATELET COUNT 222 x10e3/uL (140-360); RED BLOOD COUNT 3.65 x10e6/uL (3.6-5.1); RED CELL DISTRIBUTION WIDTH 13.8 % (11.7-14.4)
[2020-05-10 04:11] LABS: MAGNESIUM 1.5 MG/DL (1.3-2.1); PHOSPHORUS 3.7 MG/DL (2.3-4.7)
[2020-05-10 04:35] LABS: CREATINE KINASE MB 2.1 ng/mL (0-5.0)
[2020-05-10 05:00] LABS: ANION GAP 17.1 mmol/L (8-16); CALCIUM 8.3 mg/dL (8.4-10.2); CHOL/HDL RATIO 2.6 (3.0-3.6); CREATININE, SERUM 1.64 mg/dL (0.57-1.11); POTASSIUM 4.1 mmol/L (3.5-5.1)
[2020-05-10] MEDS: NITROGLYCERIN 2% OINT 1 GM PKT TOP SCH (06:00)
--- NOTE | 2020-05-10 07:04 | NUR ---
SPOKE TO DR. MORENO REGARDING CONSULT. NO NEW ORDER.
[2020-05-10] MEDS ORDERED: REPAGLINIDE 1 MG TAB PO SCH (07:30)
[2020-05-10] MEDS: REPAGLINIDE 1 MG TAB PO SCH (08:00)
[2020-05-10] MEDS: PANTOPRAZOLE SOD 40 MG TABEC PO SCH (08:26)
[2020-05-10] MEDS: SITAGLIPTIN 100 MG TAB PO SCH (08:43)
[2020-05-10] MEDS: ATORVASTATIN 10 MG TAB PO SCH (08:43)
[2020-05-10] MEDS: ALLOPURINOL 100 MG TAB PO SCH ×2 (08:43→18:35)
[2020-05-10] MEDS: FUROSEMIDE 40 MG TAB PO SCH (08:43)
[2020-05-10] MEDS ORDERED: ALLOPURINOL 100 MG TAB PO SCH (09:00)
[2020-05-10] MEDS ORDERED: ASPIRIN 81 MG ENTERIC COATED PO SCH ×2 (09:00→21:00)
[2020-05-10] MEDS: INSULIN GLARGINE 100 UNITS/ML VIAL SC SCH (09:16)
[2020-05-10] MEDS ORDERED: CLOPIDOGREL BISULFATE 75 MG TAB PO ONE (10:30)
[2020-05-10 11:46] LABS: CREATINE KINASE MB 2.3 ng/mL (0-5.0)
[2020-05-10] MEDS ORDERED: DEXTROSE 50% SYRINGE 50 ML IV PRN (12:30)
[2020-05-10] MEDS: INSULIN LISPRO 100 UNIT/1 ML 3ML VIAL SQ SCH ×3 (13:45→21:01)
[2020-05-10] MEDS: KETOROLAC TROMETHAMINE 30 MG/ML VIAL IV SCH ×3 (13:52→23:31)
--- NOTE | 2020-05-10 13:56 | NUR ---
Discontinuing PT services since patient is mod I in functional mobility. Thank you Addendum: 05/10/20 at 1356 by Ed gillette PT Amended: Links added.
--- NOTE | 2020-05-10 14:16 | Consultation ---
DATE OF CONSULTATION: Cardiac Consultation. REASON FOR THE CONSULTATION: Chest pain. HISTORY OF PRESENT ILLNESS: An 84-year-old lady, hypertensive, diabetic and "spastic esophagus." For the last three days, she is having continuous pain of her left shoulder behind her left blade as well as to the front of the shoulder. It is worse with arm movement. There is no pleuritic or pericarditic component of chest pain. The patient does have "some cough in the morning because of bronchiectasis." There is no change in the pattern of her cough. There is no hemoptysis. No pleuritic chest pain. The patient's activities are limited because of her arthritis and prior surgeries on her knees and back, etc. At her level of activity, she does have easy fatigability, shortness of breath on exertion, class 3. There is no orthopnea. There is no paroxysmal nocturnal dyspnea. There is no pleuritic chest pain. There is no cough. No hemoptysis. REVIEW OF SYSTEMS: GENERAL: No fever, no chills. HEENT: No vision problem. No hearing problem. PULMONARY and CARDIAC: As per above. GI: No hematemesis. No melena. Every now and then the food will stop and she will have spastic esophagus, but no hematemesis. No melena. No constipation. No diarrhea. : Occasional stress incontinence. No hematuria. No dysuria. MUSCULOSKELETAL: Back pain, tingling, and numbness in the feet, knee pain. NEUROLOGICAL: No seizure activity. No weakness. ENDOCRINE: The patient is diabetic. HEMATOLOGY: No easy bruising or bleeding. HOME MEDICATIONS: Long list includin. Allopurinol 100 mg twice a day. 2. Atorvastatin 10 mg a day. 3. Metformin 500 mg twice a day. 4. Repaglinide 2 mg t.i.d. 5. Aspirin 81 mg a day. 6. Tramadol as needed. 7. Protonix 40 mg a day. 8. Vitamin B12. 9. Furosemide 40 mg a day. 10. Spironolactone or Aldactone 25 mg a day. 11. Januvia 50 mg a day. 12. Lantus insulin 20 units per day. 13. Gabapentin 100 mg at bedtime. ALLERGIES: 1. PENICILLIN. 2. LEVAQUIN. 3. IODINE. 4. PREDNISONE. 5. VICODIN. ALLERGIES TO IODINE IS FROM MYELOGRAM DONE MANY YEARS AGO THAT CAUSE NAUSEA, VOMITING, HEADACHE FOR TWO WEEKS. PAST SURGICAL HISTORY: Lengthy includin. Hysterectomy. 2. Right breast biopsy 40 years ago. 3. Back surgery in 1986, 1990, and 2004. 4. Hiatus hernia surgery in 1996. 5. Arthroscopic knee surgery several times with subsequent left knee replacement in 2010 and right knee replacement 2017. 6. Sinus surgery. 7. Hypertension. 8. Diabetes mellitus. 9. Bronchiectasis, diagnosed in 2008. 10. Polymyalgia rheumatica in 2008. 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 12. Latest mammogram in August 2018 okay. 13. Spastic esophagus. 14. Chronic kidney disease. 15. Vaccination up to date including shingles testing, flu, and pneumonia. FAMILY HISTORY: Father at age 69 with emphysema. He was heavy smoker. Mother of stomach cancer at age 83. One brother with pacemaker at age 86. No sister. One healthy son. PHYSICAL EXAMINATION: VITAL SIGNS: Height of 5 feet 4 inches, weight of 190 pounds, blood pressure 110/50, heart rate of 60, respiratory rate of 18. HEENT: Pupils are reactive. NECK: No elevation of jugular venous pulsation. No thyromegaly. No lymphadenopathy. CHEST: Clear to auscultation and percussion. HEART: PMI 5th left intercostal space. Normal first and second heart sounds. ABDOMEN: Soft with good bowel sounds. No organomegaly. No abdominal bruits. EXTREMITIES: No cyanosis, no clubbing, no edema. No signs of deep venous thrombosis. Scar of knee surgeries are noted. NEUROLOGIC: Grossly nonfocal. LABORATORY DATA: Sodium of 142, potassium 4.1, BUN of 31, creatinine of 1.6, glucose of 204. White blood cell count of 7.85, hemoglobin of 9.9, hematocrit 32%, platelet count of 222,000. Triglycerides of 125, cholesterol of 104, HDL 46, LDL of 39. EKG showing normal sinus rhythm, lateral T-wave changes, incomplete right bundle branch block. IMPRESSION AND PLAN: 1. Three days duration of pain, seems to be musculoskeletal. 2. Definitely, the patient with abnormal EKG, diabetes, hypertension, her age, all this pinpoint to coronary artery disease. 3. 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 4. Hypertension. 5. Hyperlipidemia. 6. Chronic renal insufficiency. 7. Gout. 8. Anemia. 9. Possible secondary to renal disease. 10. Spastic esophagus, questionable details. 11. I discussed the case at length with the patient and her . Their questions are answered. RECOMMENDATIONS: My recommendation will be for the patient to have a stress test. Options of type of stress tests are discussed and explained. Meanwhile, I will start the patient on Plavix. We will have patient to ambulate more. If her cardiac enzymes are stable and she wants to go home tomorrow, if she can, and she would like to follow up with her heat regulator, it is fine with me. Very lengthy visit for more than 100 minutes with a lot of questionings. MD COTY Cerda/RICHIE /[id number]
--- NOTE | 2020-05-10 15:28 | Diagnostic Imaging Report ---
TECHNIQUE: Computed tomography imaging of the LEFT SHOULDER was performed WITHOUT injected contrast. COMPARISON: None available. HISTORY: Left shoulder pain FINDINGS: No fracture. No lytic or blastic lesion. No osteonecrosis. Mild glenohumeral and acromioclavicular arthrosis. Probable partial tearing of the supraspinatus without full-thickness defect or atrophy. The lungs are clear. IMPRESSION: No acute osseous or soft tissue abnormality Mild degenerative arthrosis of the shoulder Signed by: Dr. Mahesh Pimentel M.D. on 05/10/2020 3:25 PM
[2020-05-10] MEDS ORDERED: ENOXAPARIN SOD INJ 40 MG/0.4 ML SYR SC SCH (17:00)
[2020-05-10] MEDS ORDERED: GABAPENTIN 100 MG CAP PO SCH (21:00)
[2020-05-10] MEDS: GABAPENTIN 100 MG CAP PO SCH (21:01)
[2020-05-10] MEDS: ASPIRIN 81 MG ENTERIC COATED PO SCH (21:01)
[2020-05-11] VITALS: BP 149/59
[2020-05-11 04:00] VITALS: BP 138/57
[2020-05-11] MEDS: KETOROLAC TROMETHAMINE 30 MG/ML VIAL IV SCH (05:44)
[2020-05-11] MEDS: INSULIN LISPRO 100 UNIT/1 ML 3ML VIAL SQ SCH ×2 (07:30→12:12)
[2020-05-11] MEDS: ATORVASTATIN 10 MG TAB PO SCH (08:00)
[2020-05-11] MEDS: FUROSEMIDE 40 MG TAB PO SCH (08:00)
[2020-05-11] MEDS: PANTOPRAZOLE SOD 40 MG TABEC PO SCH (08:00)
[2020-05-11] MEDS: ALLOPURINOL 100 MG TAB PO SCH (08:00)
[2020-05-11] MEDS: SITAGLIPTIN 100 MG TAB PO SCH (08:00)
[2020-05-11 08:04] VITALS: BP 134/56
[2020-05-11] MEDS: INSULIN GLARGINE 100 UNITS/ML VIAL SC SCH (08:19)
--- NOTE | 2020-05-11 08:39 | History and Physical ---
CHIEF COMPLAINT: Chest pain. HISTORY OF PRESENT ILLNESS: This is an 84-year-old female, history of hypertension, diabetes, spastic esophagus, also has a history of CAD in which she follows up with a manager trading in the [facility]. She comes in from the freestanding emergency room with complaints of chest pain, ongoing for the last 1-2 days. Reports chest pain was substernal, radiates to her left shoulder. She does report that she had shoulder pain, thinking initially was osteoarthritis, was taking some oral Tylenol at home with minimal relief. The patient was admitted for cardiac rule out and with Cardiology was consulted. REVIEW OF SYSTEMS: Pertinent positive chest pain, left shoulder pain. The rest of the 14-point review of systems have been reviewed with the patient and are negative. ALLERGIES: PENICILLIN, ACETAMINOPHEN, HYDROCODONE, IODINE, LEVAQUIN, PREDNISONE. HOME MEDICATIONS: 1. Metformin. 2. Protonix. 3. Spironolactone. 4. Allopurinol. 5. Aspirin. 6. Lipitor. 7. Lasix. 8. Gabapentin. 9. Lantus. 10. Januvia. 11. Tramadol. 12. Prandin. PAST MEDICAL HISTORY: Hyperuricemia, hyperlipidemia, hypertension, type 2 diabetes, chronic pain. PAST SURGICAL HISTORY: Hysterectomy, right breast biopsy 40 years ago, back surgery 1986, 1990, 2000, hiatal hernia surgery in 1996, arthroscopic knee surgery several times and subsequent left knee replacement in 2010, right knee replacement 2016, sinus surgery. PAST FAMILY HISTORY: Father at 69 with emphysema, heavy smoker. Mother from stomach cancer age 83. One brother with pacemaker age 86. No sisters. One healthy son. PHYSICAL EXAMINATION: VITAL SIGNS: Temperature is 97.7, pulse 65, respiratory rate is 18, blood pressure 124/65, pulse ox 100% on room air. GENERAL: No acute distress, alert and oriented x3. Cooperative on examination. HEENT: Head normocephalic, atraumatic. Eyes; pupils are equal, round, and reactive to light bilaterally. Extraocular movements are intact bilaterally. Throat, no evidence of any erythema or exudates in the posterior pharynx. Has poor dentition. NECK: Supple. Good range of motion. PULMONARY: Clear to auscultation bilaterally. No wheezing, rales, rhonchi or crackles appreciated. CARDIOVASCULAR: Positive S1, S2. No murmurs, rubs, or gallops appreciated. ABDOMEN: Soft, nondistended, nontender to palpation. Bowel sounds present. MUSCULOSKELETAL: Strength is 5/5 throughout. No evidence of any muscle deficits on examination. LABORATORY DATA: Show white count BUN is 31, creatinine 1.6, glucose , hemoglobin A1c 8.2, phosphorus 2.7, magnesium 1.5. Troponins are negative. LDL 39. Serology; coronavirus not detected. IMAGING STUDIES: Chest x-ray was negative. IMPRESSION: 1. Chest pain, rule out ACS likely atypical in nature. 2. Left shoulder pain, likely osteoarthritis. 3. Type 2 diabetes. 4. Hypertension. PLAN: Trend troponins. Cardioprotective medications. Cardiology consultation. A 2D echo per Cardiology. Resume same home medications. Insulin sliding scale. CT of the shoulder to evaluate left shoulder. IV Toradol for pain. Lovenox for DVT prophylaxis. Monitor overnight. Potential discharge tomorrow if cleared by Cardiology. MD JOAQUINA Domínguez/MODL /[id number]
[2020-05-11] MEDS ORDERED: CLOPIDOGREL BISULFATE 75 MG TAB PO SCH (09:00)
[2020-05-11 09:54] LABS: ANION GAP 16.3 mmol/L (8-16); CALCIUM 9.1 mg/dL (8.4-10.2); CREATININE, SERUM 2.05 mg/dL (0.57-1.11); POTASSIUM 4.3 mmol/L (3.5-5.1)
[2020-05-11 12:00] VITALS: BP 130/55
[2020-05-11] MEDS ORDERED: PLAVIX75 MG PO (13:03)
--- NOTE | 2020-05-12 10:30 | Discharge Summary ---
FINAL DISCHARGE DIAGNOSES: 1. Atypical chest pain. 2. Left shoulder pain, likely osteoarthritis. 3. Type 2 diabetes. 4. Hypertension. 5. Chronic kidney disease stage 3-4. CONSULTANTS: Cardiology. VITAL SIGNS: Temperature is 97.5, pulse 65, respiratory rate is 20, blood pressure 130/55, pulse ox 98% on room air. LABORATORY DATA: Labs show white count 7.8, hemoglobin 9.9, hematocrit is 32, and platelets of 222. Chemistry; sodium 138, potassium 4.3, chloride 100, bicarb 26, anion gap was 16, BUN 39, creatinine was 2, glucose was 217. Her A1c is 8.2. Her calcium is 9.1, phosphorus is 2.7, magnesium is 1.5. Troponins were all negative. LDL was 39. Coronavirus not detected. IMAGING STUDIES: Chest x-ray was found to be negative. CT of the left shoulder shows no acute osseous or soft tissue abnormality. Mild degenerative arthrosis of the shoulder. HOSPITAL COURSE: An 84-year-old female, who reportedly was complaining of chest pain, presented to freestanding emergency room, was brought in for further evaluation and management. The patient was admitted on observation and Cardiology was consulted. The patient was evaluated by Cardiology. Cardiac enzymes were found to be negative and no alarms on cardiac telemetry. She has been evaluated by Cardiology and was initiated on oral Plavix. The patient was cleared for discharge by Cardiology and felt to be that the patient likely has a musculoskeletal etiology for her chest pain. The patient reports having left shoulder pain, ongoing for several weeks now. CT of the left shoulder is consistent with osteoarthritis. The patient was provided some pain control while here in the hospital as well as anti-inflammatories. She reports that her pain is better controlled. I also reported to the patient that she will need to follow up with Ortho. She may need some injections, also possibly MRI of the left shoulder for further evaluation and management. She was provided an orthopedic physician here at [facility] for followup as an outpatient, can make an appointment. She is being cleared for discharge by Cardiology with discharge on oral Plavix. She is otherwise stable and doing well. Discussed plan of care with the patient, the patient's , and nursing staff at bedside. They all verbalized understanding. On the day of discharge, vital signs were stable, labs reviewed and stable. The patient is seen and evaluated and examined thoroughly on the day of discharge with no other complaints. The patient verbalized understanding and agrees to plan of care to follow up accordingly as an outpatient with primary care physician in 1 week and Orthopedics in 1 to 2 weeks' time. The patient will follow up with her primary end trimmer [facility] within next 1 to 2 weeks. MEDICATIONS: See med reconciliation form. DISPOSITION: Home. CONDITION: Stable. DIET: Heart healthy. In the event of any worsening symptoms, the patient was advised to come back to the ED for further evaluation. Discharge summary took greater than 35 minutes. MD JOAQUINA Domínguez/RICHIE /[id number]
== END 2020-05-11 13:10 | disposition home or self-care (01) ==
LOC: FSED 16:30 → ERHOLD 19:52 → MED/SURG 21:29
PROVIDERS: ADMIT Internal Medicine; ATTEND Internal Medicine
DX: R07.89 Other chest pain (principal); E11.9 Type 2 diabetes mellitus without complications; I10 Essential (primary) hypertension; E11.22 Type 2 diabetes mellitus with diabetic chronic kidney disease; I12.9 Hypertensive chronic kidney disease with stage 1 through stage 4 chronic kidney disease, or unspecified chronic kidney disease; N18.9 Chronic kidney disease, unspecified; D64.9 Anemia, unspecified; M10.9 Gout, unspecified; K22.4 Dyskinesia of esophagus; E78.5 Hyperlipidemia, unspecified; R94.31 Abnormal electrocardiogram [ECG] [EKG]; Z11.59 Encounter for screening for other viral diseases
CPT/HCPCS: 36415 ×2; 71045; 73202; 80048 ×2; 80053; 80061; 82550; 82553; 82948 ×3; 83036; 83735; 84100; 84484 ×2; 85025 ×2; 93005; 93306; 97161; 99284; G0378 ×3; J1650; J1885 ×2; S0164 ×2; U0002

== ENCOUNTER 2022-05-30 06:15 | Emergency (ER) | payer MEDICARE, OTHER ==
[~2022-05-30] VITALS: Ht 162.6 cm; Wt 80.4 kg
[~2022-05-30 06:15] MED LIST changes: +GABAPENTIN100 MG PO; +LANTUS 3ML100 UNITS/ SC; +METFORMIN HCL500 M2 PO; +PLAVIX75 MG PO; +PRANDIN2 MG PO; +ULTRAM50 MG PO
[2022-05-30] MEDS ORDERED: VITAMIN D325 MCG (07:17)
[2022-05-30] MEDS ORDERED: LOSARTAN POTASS25 MG PO (07:17)
[2022-05-30] MEDS ORDERED: VITAMIN B122500 MCG (07:17)
[2022-05-30] MEDS ORDERED: VITAMIN B6100 MG/2.5 (07:17)
[2022-05-30] MEDS ORDERED: AZITHROMYCIN250 MG PO (07:41)
[2022-05-30] MEDS ORDERED: TAMIFLU75 MG PO (07:41)
[2022-05-30] MEDS ORDERED: BENZONATATE200 MG PO (07:41)
[2022-05-30] MEDS ORDERED: ACETAMINOPHEN500 MG PO (07:41)
== END 2022-05-30 08:21 | disposition home or self-care (01) ==
LOC: FSED 06:50
DX: R05.9 Cough, unspecified (principal); J10.1 Influenza due to other identified influenza virus with other respiratory manifestations; I12.9 Hypertensive chronic kidney disease with stage 1 through stage 4 chronic kidney disease, or unspecified chronic kidney disease; E11.22 Type 2 diabetes mellitus with diabetic chronic kidney disease; N18.4 Chronic kidney disease, stage 4 (severe); E78.5 Hyperlipidemia, unspecified; M10.9 Gout, unspecified
CPT/HCPCS: 71046; 83518; 87400; 99283